=== PATIENT | female | born 1950 | race Caucasian/White ===

== ENCOUNTER → 2016-06-18 | Outpatient (CLI) | payer OTHER ==
--- NOTE | 2016-06-18 08:42 | BD ---
EXAMINATION TYPE: MG DEXA axial skeleton. DATE OF EXAM: 06/18/2016 7:31 AM COMPARISON: NONE CLINICAL HISTORY: Height: 5 ft 3/4 in Weight: 196 FRAX RISK QUESTIONS: Alcohol (3 or more units per day): NO Family History (Parent hip fracture): no Glucocorticoids (More than 3mos): no (Ex: prednisone, prednisolone, methylprednisolone, dexamethasone, and hydrocortisone). History of Fracture in Adulthood: yes Secondary Osteoporosis: 1. Type 1 Diabetes: NO 2. Hyperthyroidism: NO 3. Menopause before 45: NO 4. Malnutrition: NO 5. Chronic liver disease: NO Rheumatoid Arthritis: NO Current Tobacco Use: NO RISK FACTORS HISTORY OF: Other Fractures since Age 52: RIB When: 10 YEARS AGO Postmenopausal woman: AGE 55 MEDICATIONS: Additional Medications: FEMARA, JANUMET, TRULICITY, LOSARTIN, CHOLESTEROL MEDS, Additional History: BREAST CANCER 2010 CHEMO AND RADIATION EXAM MEASUREMENTS: Bone mineral densitometry was performed using the [employer] System. Bone mineral density as measured about the Lumbar spine is: ----- L1-L4(G/cm2): 1.037 T Score Values are as follows: ----- L2: -1.5 ----- L3: -0.6 ----- L4: -1.0 ----- L1-L4: -1.2 Bone mineral density has: Increased 0.2 % since study of: 2014 Bone mineral density about the R hip (g/cm2): 0.900 Bone mineral density about the L hip (g/cm2): 0.853 T Score values are as follows: -----R Neck: -1.0 -----L Neck: -1.3 -----R Intertrochanter: -1.0 -----L Intertrochanter: -1.2 Bone mineral density has: Decreased -3.0 % since study of: 2014 IMPRESSION: Osteopenia (T Score between -2.5 and -1 as noted by T score values There is slightly increased risk of fracture and the patient may be considered for treatment. Re-Screen 1-2 years. L2 AND LEFT FEMUR NOTE: T-SCORE=SD OF THE YOUNG ADULT MEAN.
== END | disposition home or self-care (01) ==
LOC: RADBDWWP 06:59
PROVIDERS: ATTEND Internal Medicine Hematology & Oncology
DX: M85.80 Other specified disorders of bone density and structure, unspecified site (principal); C50.412 Malignant neoplasm of upper-outer quadrant of left female breast; N95.1 Menopausal and female climacteric states; Z79.890 Hormone replacement therapy
CPT/HCPCS: 77080

== ENCOUNTER → 2017-03-27 | Outpatient (CLI) | payer OTHER ==
--- NOTE | 2017-03-27 09:00 | XR ---
EXAMINATION TYPE: XR chest 2V DATE OF EXAM: 03/27/2017 COMPARISON: 03/26/2016 HISTORY: Annual wellness. History of breast cancer and hypertension. TECHNIQUE: Frontal and lateral views of the chest are obtained. FINDINGS: There is no focal air space opacity, pleural effusion, or pneumothorax seen. The cardiac silhouette size is within normal limits. The osseous structures are intact. Minimal degenerative ch anges are seen of the thoracic spine. Old fracture deformity is seen of the anterior left sixth rib. IMPRESSION: No acute cardiopulmonary process.
--- NOTE | 2017-03-27 09:09 | MM ---
Reason for exam: additional evaluation requested from prior study. Last mammogram was performed 1 year ago. History: Patient is postmenopausal and has history of breast cancer at age 60. Mastectomy of the left breast, December 29, 2010. Malignant US left guided VAD of the left breast, December 19, 2010. Malignant US left guided VAD of the left breast, December 19, 2010. Benign US left CoreBiopsy of the left breast, May 15, 2005. Benign core biopsy of the right breast, April 2005. Benign stereotactic core biopsy of the right breast, May 22, 2002. Excisional biopsy of the left breast. Chemotherapy. Radiation therapy. Taking antineoplastic for 3 years 6 months beginning at age 60. Physical Findings: Nurse Summary: 0.25cm nodule in the right breast at 7 o'clock (nurse cw). MG 3D Diag Mammo W/Cad RT CC and MLO view(s) were taken of the right breast. Prior study comparison: March 26, 2016, right breast MG diagnostic mammo RT w CAD. March 25, 2015, right breast MG 3d diag mammo w/cad RT. The breast tissue is heterogeneously dense. This may lower the sensitivity of mammography. Finding: There are typically benign diffuse/scattered calcifications in the right breast. Post biopsy change palpable per nurse relates to dystrophic calcification of fat necrosis. These results were verbally communicated with the patient and result sheet given to the patient on 03/27/17. ASSESSMENT: Benign, BI-RAD 2 RECOMMENDATION: Follow-up diagnostic mammogram of the right breast in 1 year.
== END | disposition home or self-care (01) ==
LOC: RADMAMWWP 07:42
PROVIDERS: ATTEND Internal Medicine Hematology & Oncology
DX: C50.412 Malignant neoplasm of upper-outer quadrant of left female breast (principal); I97.2 Postmastectomy lymphedema syndrome; D63.0 Anemia in neoplastic disease; Z17.0 Estrogen receptor positive status [ER+]
CPT/HCPCS: 71020; G0206; G0279

== ENCOUNTER → 2018-04-09 | Outpatient (CLI) | payer MEDICARE ==
--- NOTE | 2018-04-09 08:10 | XR ---
EXAMINATION TYPE: XR chest 2V DATE OF EXAM: 04/09/2018 COMPARISON: 03/27/2017 HISTORY: Shortness of breath TECHNIQUE: Frontal and lateral views of the chest are obtained. FINDINGS: Scattered senescent parenchymal changes noted. Hyperinflation compatible with COPD. No evidence for infiltrate. No evidence for atelectasis. Heart size is stable. Mediastinal structures are stable and grossly unremarkable. No evidence for hilar prominence. Degenerative changes dorsal spine. IMPRESSION: 1. No evidence for acute pulmonary disease.
--- NOTE | 2018-04-10 09:50 | MM ---
Reason for exam: additional evaluation requested from prior study. Last mammogram was performed 1 year ago. History: Patient is postmenopausal and has history of breast cancer at age 60. Mastectomy of the left breast, December 29, 2010. Malignant US left guided VAD of the left breast, December 19, 2010. Malignant US left guided VAD of the left breast, December 19, 2010. Benign US left CoreBiopsy of the left breast, May 15, 2005. Benign core biopsy of the right breast, April 2005. Benign stereotactic core biopsy of the right breast, May 22, 2002. Excisional biopsy of the left breast. Chemotherapy. Radiation therapy. Took antineoplastic beginning at age 60. Physical Findings: Nurse did not find any significant physical abnormalities on exam. MG 3D Diag Mammo W/Cad RT CC and MLO view(s) were taken of the right breast. Prior study comparison: March 27, 2017, right breast MG 3d diag mammo w/cad RT. March 26, 2016, right breast MG diagnostic mammo RT w CAD. The breast tissue is heterogeneously dense. This may lower the sensitivity of mammography. Stable benign calcifications. There is no discrete abnormality including area of concern. No significant new findings when compared with previous films. These results were verbally communicated with the patient and result sheet given to the patient on 04/09/18. ASSESSMENT: Benign, BI-RAD 2 RECOMMENDATION: Follow-up diagnostic mammogram of the right breast in 1 year.
== END | disposition home or self-care (01) ==
LOC: RADMAMWWP 06:49
PROVIDERS: ATTEND Family Medicine
DX: Z08 Encounter for follow-up examination after completed treatment for malignant neoplasm (principal); I97.2 Postmastectomy lymphedema syndrome; D64.9 Anemia, unspecified; Z17.0 Estrogen receptor positive status [ER+]
CPT/HCPCS: 71046; 77065; G0279; 77061

== ENCOUNTER → 2018-06-19 | Outpatient (CLI) | payer MEDICARE ==
--- NOTE | 2018-06-19 11:25 | BD ---
EXAMINATION TYPE: Axial Bone Density DATE OF EXAM: 06/19/2018 COMPARISON: 06.18.2016 DEXA bone scan. CLINICAL HISTORY: 67 YR OLD FEMALE....ICD-10 CODE: M85.8 OSTEOPENIA, Z79.890 POST MENOPAUSAL Height: 61.4 Weight: 185 FRAX RISK QUESTIONS: History of Fracture in Adulthood: YES RISK FACTORS HISTORY OF: HX OF RIB FX ADULT....60 YRS OLD Postmenopausal woman: YES AT 56 YRS OLD FEMARA, LEFT BREAST CANCER MEDICATIONS: Additional Medications: BP MEDS, HX OF CHEMO AND RADIATION, FEMARA, DIABETIC MEDS, CALCIUM AND VIT D, STATINS FOR CHOLESTEROL, Additional History: HX OF LT BREAST CANCER, DIABETIC, HYPERTENSION EXAM MEASUREMENTS: Bone mineral densitometry was performed using the [employer] System. Bone mineral density as measured about the Lumbar spine is: ----- L1-L4(G/cm2): 0.994 T Score Values are as follows: ----- L1: -1.5 ----- L2: -1.7 ----- L3: -1.9 ----- L4: -1.3 ----- L1-L4: -1.5 Bone mineral density has: Decreased -6.6% since study of: 06.18.2016 Bone mineral density about the R hip (g/cm2): 0.857 Bone mineral density about the L hip (g/cm2): 0.883 T Score values are as follows: -----R Neck: -1.2 -----L Neck: -1.5 -----R Total: -1.2 -----L Total: -1.0 Bone mineral density has: Decreased -3.9% since study of: 06.18.2016 FRAX%s: THERE IS A 13.8% CHANCE FOR A MAJOR OSTEOPOROTIC FX AND A 1.4% FOR HIP.....PROBABILITY OF FX IN 10 YRS TIME IMPRESSION: Osteopenia (T Score between -2.5 and -1) persists overall low back and both hips. Bone density is dec reased or diminished from prior There remains slightly increased risk of fracture and the patient may be considered for treatment. Re-Screen 2-5 years. NOTE: T-SCORE=SD OF THE YOUNG ADULT MEAN.
== END | disposition home or self-care (01) ==
LOC: RADBDWWP 09:27
PROVIDERS: ATTEND Internal Medicine Hematology & Oncology
DX: M85.851 Other specified disorders of bone density and structure, right thigh (principal); M85.852 Other specified disorders of bone density and structure, left thigh; M85.88 Other specified disorders of bone density and structure, other site; C50.412 Malignant neoplasm of upper-outer quadrant of left female breast; Z79.890 Hormone replacement therapy
CPT/HCPCS: 77080

== ENCOUNTER 2018-07-25 16:08 | Emergency (ER) | payer MEDICARE ==
[2018-07-25 16:26] VITALS: PULSE 86; RESP 20; TEMP 98.2
--- NOTE | 2018-07-25 17:02 | ED ---
General Adult HPI - General Chief complaint: Extremity Injury, Upper Stated complaint: Hand Injury Time Seen by Provider: 07/25/18 16:54 Source: patient, RN notes reviewed Mode of arrival: ambulatory Limitations: no limitations - History of Present Illness Initial comments: Patient is a 67-year-old female who presents the emergency department with her daughter with complaint of right hand pain and swelling after she closed her hand in a door about an hour ago. Denies blood thinner use. Denies head injury or loss of consciousness. Denies wrist injury or any other injuries. Patient denies any recent fever, chills, shortness of breath, chest pain, back pain, abdominal pain, nausea or vomiting, numbness or tingling, headaches or visual changes, or any other complaints. - Related Data Allergies Allergy/AdvReac Type Severity Reaction Status Date / Time No Known Allergies Allergy Verified 07/25/18 16:26 Review of Systems ROS Statement: Those systems with pertinent positive or pertinent negative responses have been documented in the HPI. ROS Other: All systems not noted in ROS Statement are negative. Past Medical History Past Medical History: Cancer, Dementia, Hypertension History of Any Multi-Drug Resistant Organisms: None Reported Additional Past Surgical History / Comment(s): Left breast Past Psychological History: No Psychological Hx Reported Smoking Status: Never smoker Past Alcohol Use History: None Reported Past Drug Use History: None Reported General Exam Limitations: no limitations General appearance: alert, in no apparent distress Head exam: Present: atraumatic, normocephalic Eye exam: Present: normal appearance Respiratory exam: Present: normal lung sounds bilaterally. Absent: wheezes, rales, rhonchi Cardiovascular Exam: Present: regular rate, normal rhythm Extremities exam: Present: tenderness (Right hand.), normal capillary refill, other (Edema to right hand. No wrist pain. No snuffbox tenderness. Sensation intact. Able to maintain finger extention against resistance.) Neurological exam: Present: alert, oriented X3 Skin exam: Present: warm, dry Course Vital Signs 07/25/18 07/25/18 16:22 17:31 Temperature 98.2 F Pulse Rate 86 Respiratory 20 Rate Blood Pressure 172/91 151/72 O2 Sat by Pulse 99 Oximetry Medical Decision Making - Medical Decision Making Patient with ice pack on hand. X-ray of the right hand reveals osteoarthritis and soft tissue swelling. No definite fracture seen. Case discussed in detail with attending physician Dr. Brar. Disposition Clinical Impression: Contusion Disposition: HOME SELF-CARE Condition: Good Instructions (If sedation given, give patient instructions): Contusion in Adults (ED) Additional Instructions: Follow-up with your PCP in 1 to 2 days. Use ice as needed. Rest and elevate your hand. Return to the emergency department if your symptoms worsen or other concerns. Is patient prescribed a controlled substance at d/c from ED?: No Referrals: Magen Licea MD [Primary Care Provider] - 1-2 days Time of Disposition: 17:55
[2018-07-25 17:31] VITALS: BP 151/72
--- NOTE | 2018-07-25 17:31 | XR ---
Right hand 3 views. History pain. Comparison none. FINDINGS: There is mild spurring at the third MP joint. There is soft tissue swelling on the dorsum of the hand . I see no definite fracture. Metacarpals appear intact. There is no subluxation. There is spurring a t the DIP joints of the thumb and index finger. IMPRESSION: Osteoarthritis. Soft tissue swelling. No definite fracture seen.
== END 2018-07-25 18:06 | disposition home or self-care (01) ==
LOC: EC 16:08
DX: S60.221A Contusion of right hand, initial encounter (principal); M19.041 Primary osteoarthritis, right hand; W23.0XXA Caught, crushed, jammed, or pinched between moving objects, initial encounter; Y92.009 Unspecified place in unspecified non-institutional (private) residence as the place of occurrence of the external cause
CPT/HCPCS: 99283

== ENCOUNTER → 2019-05-18 | Outpatient (CLI) | payer MEDICARE ==
--- NOTE | 2019-05-18 13:59 | MM ---
Reason for exam: additional evaluation requested from prior study. Last mammogram was performed 1 year and 1 month ago. History: Patient is postmenopausal and has history of breast cancer at age 60. Mastectomy of the left breast, December 29, 2010. Malignant US left guided VAD of the left breast, December 19, 2010. Malignant US left guided VAD of the left breast, December 19, 2010. Benign US left CoreBiopsy of the left breast, May 15, 2005. Benign core biopsy of the right breast, April 2005. Benign stereotactic core biopsy of the right breast, May 22, 2002. Excisional biopsy of the left breast. Chemotherapy. Radiation therapy. Took antineoplastic beginning at age 60. Physical Findings: Nurse did not find any significant physical abnormalities on exam. MG 3D Diag Mammo W/Cad RT CC and MLO view(s) were taken of the right breast. Prior study comparison: April 09, 2018, right breast MG 3d diag mammo w/cad RT. March 27, 2017, right breast MG 3d diag mammo w/cad RT. The breast tissue is heterogeneously dense. This may lower the sensitivity of mammography. There is a stable right upper outer quadrant middle depth circumscribed oval mass. Benign appearing calcifications in the right breast. No suspicious abnormality. These results were verbally communicated with the patient and result sheet given to the patient on 05/18/19. ASSESSMENT: Benign, BI-RAD 2 RECOMMENDATION: Follow-up diagnostic mammogram of the right breast in 1 year.
--- NOTE | 2019-05-18 14:09 | XR ---
EXAMINATION TYPE: XR chest 2V DATE OF EXAM: 05/18/2019 COMPARISON: 04/09/2018 HISTORY: History of breast cancer TECHNIQUE: Frontal and lateral views of the chest are obtained. FINDINGS: Left mastectomy has been performed. There is no focal air space opacity, pleural effusion, or pneumothorax seen. The cardiac silhouette size is within normal limits. The osseous structures are intact. Mild multilevel degenerative changes of the thoracic spine. IMPRESSION: No acute cardiopulmonary process.
== END | disposition home or self-care (01) ==
LOC: RADMAMWWP 12:09
PROVIDERS: ATTEND Internal Medicine Hematology & Oncology
DX: C50.412 Malignant neoplasm of upper-outer quadrant of left female breast (principal); I97.2 Postmastectomy lymphedema syndrome; J01.90 Acute sinusitis, unspecified; Z85.3 Personal history of malignant neoplasm of breast; Z17.0 Estrogen receptor positive status [ER+]
CPT/HCPCS: 71046; 77065; G0279; 77061

== ENCOUNTER → 2019-05-20 | Outpatient (CLI) | payer MEDICARE ==
--- NOTE | 2019-05-20 14:36 | US ---
EXAMINATION TYPE: US thyroid st tissue head/neck DATE OF EXAM: 05/20/2019 COMPARISON: NONE CLINICAL HISTORY: R22.1 Neck mass. Left lateral neck palp/bulge x 2-3 years. Patient states it is be coming uncomfortable. TECHNIQUE/FINDINGS: Targeted grayscale and color ultrasound were performed of the area of palpable ab normality of the left neck. Area of concern scanned. No prominent masses or lesions seen. No free fluid. Contralateral images taken. Muscle tissue appears more prominent on left compared to right. IMPRESSION: No suspicious solid or cystic mass on the palpable abnormality in the left neck. The son ographer provides images in which musculature of the neck is slightly more prominent on the left than right although this could relate to obliquity and state of contraction.
== END | disposition home or self-care (01) ==
LOC: RADUSWWP 13:20
PROVIDERS: ATTEND Family Medicine
DX: R22.1 Localized swelling, mass and lump, neck (principal)
CPT/HCPCS: 76536

== ENCOUNTER → 2020-07-13 | Outpatient (CLI) | payer MEDICARE ==
--- NOTE | 2020-07-14 07:53 | BD ---
EXAMINATION TYPE: Axial Bone Density DATE OF EXAM: 07/13/2020 COMPARISON: NONE CLINICAL HISTORY: Height: 5 FT 1 IN Weight: 185 FRAX RISK QUESTIONS: Alcohol (3 or more units per day): NO Family History (Parent hip fracture): NO Glucocorticoids (More than 3mos): NO (Ex: prednisone, prednisolone, methylprednisolone, dexamethasone, and hydrocortisone). History of Fracture in Adulthood: YES Secondary Osteoporosis: 1. Type 1 Diabetes: NO 2. Hyperthyroidism: NO 3. Menopause before 45: NO 4. Malnutrition: NO 5. Chronic liver disease: NO Rheumatoid Arthritis: NO Current Tobacco Use: NO RISK FACTORS HISTORY OF: Family History of Osteoporosis: NO Active: YES Diet low in dairy products/other sources of calcium: NO Postmenopausal woman: AGE 55 Take estrogen and/or progesterone medications: NONE Lost more than 2 inches in height since high school: NO MEDICATIONS: Additional Medications: FEMARA, LOSARTIN, ATORVASTATIN, Additional History: BREAST CANCER CHEMO AND RADIATION EXAM MEASUREMENTS: Bone mineral densitometry was performed using the [employer] System. Bone mineral density as measured about the Lumbar spine is: ----- L1-L4(G/cm2): 0.989 T Score Values are as follows: ----- L2: -2.7 ----- L3: -1.3 ----- L4: -1.3 ----- L1-L4: -1.6 Bone mineral density has: DECREASED -1.2 % since study of: 2018 Bone mineral density about the R hip (g/cm2): 0.830 Bone mineral density about the L hip (g/cm2): 0.768 T Score values are as follows: -----R Neck: -1.5 -----L Neck: -1.9 -----R Total: -1.3 -----L Total: -1.4 Bone mineral density has: DECREASED -3.9 % since study of: 2018 IMPRESSION: Osteopenia (T Score between -2.5 and -1). There is slightly increased risk of fracture and the patient may be considered for treatment. Re-Screen 2-5 years. NOTE: T-SCORE=SD OF THE YOUNG ADULT MEAN.
--- NOTE | 2020-07-15 10:53 | MM ---
Reason for exam: additional evaluation requested from prior study. Last mammogram was performed 1 year and 2 months ago. History: Patient is postmenopausal and has history of breast cancer at age 60. Mastectomy of the left breast, December 29, 2010. Malignant US left guided VAD of the left breast, December 19, 2010. Malignant US left guided VAD of the left breast, December 19, 2010. Benign US left CoreBiopsy of the left breast, May 15, 2005. Benign core biopsy of the right breast, April 2005. Benign stereotactic core biopsy of the right breast, May 22, 2002. Excisional biopsy of the left breast. Chemotherapy. Radiation therapy. Taking antineoplastic beginning at age 60. Physical Findings: Nurse Summary: 1cm nodule in the right breast at 10 o'clock (nurse db). MG 3D Diag Mammo W/Cad RT CC, MLO, and XCCL view(s) were taken of the right breast. Prior study comparison: May 18, 2019, right breast MG 3d diag mammo w/cad RT. April 09, 2018, right breast MG 3d diag mammo w/cad RT. The breast tissue is heterogeneously dense. This may lower the sensitivity of mammography. Finding #1: There is a 15 mm equal density (isodense), circumscribed lobulated mass located 5 cm from the nipple in the upper outer quadrant, middle position of the right breast consistent with palpable abnormality. Finding #2: There are typically benign regional coarse calcifications in the right breast. These results were verbally communicated with the patient and result sheet given to the patient on 07/13/20. ASSESSMENT: Incomplete: need additional imaging evaluation, BI-RAD 0 RECOMMENDATION: Ultrasound of the right breast.
--- NOTE | 2020-07-15 10:55 | USB ---
Reason for exam: additional evaluation requested from abnormal screening. History: Patient is postmenopausal and has history of breast cancer at age 60. Mastectomy of the left breast, December 29, 2010. Malignant US left guided VAD of the left breast, December 19, 2010. Malignant US left guided VAD of the left breast, December 19, 2010. Benign US left CoreBiopsy of the left breast, May 15, 2005. Benign core biopsy of the right breast, April 2005. Benign stereotactic core biopsy of the right breast, May 22, 2002. Excisional biopsy of the left breast. Chemotherapy. Radiation therapy. Taking antineoplastic beginning at age 60. US Breast Limited RT Right limited breast ultrasound including focal area of concern, retroareolar and axilla demonstrates a 1.6 x 1.1 x 1.9cm irregular, solid, hypoechoic, taller than wide lesion at 10 o'clock and a 2.4cm lymph node at the axilla. These results were verbally communicated with the patient and result sheet given to the patient on 07/13/20. ASSESSMENT: Highly suggestive of malignancy, BI-RAD 5 RECOMMENDATION: Ultrasound core biopsy of the right breast. Called office with mammographic findings and has scheduled an appointment for the patient for 08/05/20 at 1:[address] Dimas. Biopsy scheduled for 07/21/20 at 10:30. PRELIMINARY REPORT CALLED AND FAXED TO DR. DIMAS ON 07/15/20.
== END | disposition home or self-care (01) ==
LOC: RADMAMWWP 12:22
PROVIDERS: ATTEND Internal Medicine Hematology & Oncology
DX: R92.8 Other abnormal and inconclusive findings on diagnostic imaging of breast (principal); Z85.3 Personal history of malignant neoplasm of breast; M85.80 Other specified disorders of bone density and structure, unspecified site
CPT/HCPCS: 77080; 77065; 76642; G0279; 77061

== ENCOUNTER → 2020-07-21 | Day surgery (SDC) | payer MEDICARE ==
[2020-07-21 09:52] VITALS: RESP 16; TEMP 98.4
[2020-07-21 11:29] VITALS: BP 147/83; PULSE 76
--- NOTE | 2020-07-21 21:16 | USB ---
EXAMINATION TYPE: US biopsy breast VAD RT DATE OF EXAM: 07/21/2020 CLINICAL HISTORY: R92.8 ABN MAMMO. TECHNIQUE: Ultrasound guided vaccuum assisted core biopsy of right breast. COMPARISON: 07/13/2020 FINDINGS: The ultrasound guided core biopsy procedure was explained to the patient. The risks, benef its, alternatives were discussed. An informed consent was then obtained. Timeout was performed. The patient was placed in supine positioning for imaging and for the procedure. The overlying skin w as prepped with betadine and sterilely draped in usual sterile fashion. Lidocaine 1% was used as ane sthetic into the skin and deeper breast tissue up to area of concern in the breast. A small skin mary k was made with surgical scalpel. Under ultrasound guidance, a 12-gauge vacuum assisted biopsy device was used to obtain 6 core samples . A biopsy clip was left in lesion. A wing clip was placed. There was some postprocedure bleeding. Minimal blood loss less than 10 mL. Good hemostasis was obtain ed with direct pressure. Discharge instructions were discussed with the patient. The patient will f ollow up with the referring physician for results. Postprocedure mammogram: The patient was transferred to mammography for physician ordered post proced ure mammogram for clip placement verification. The clip is in the expected region of the biopsy. The re is a nodular density near the clip. Clip placement however was visualized into the lesion at the b iopsy site at the time of deployment. The patient tolerated the procedure well without any immediate complication. The patient was dischar ged to home in stable condition. IMPRESSION: 1. Successful ultrasound guided biopsy right breast.
== END ==
LOC: RADUSWWP 09:08
PROVIDERS: ATTEND Internal Medicine Hematology & Oncology
DX: C50.911 Malignant neoplasm of unspecified site of right female breast (principal); Z17.0 Estrogen receptor positive status [ER+]
CPT/HCPCS: 88305; 88342; 88341; 77065; 19083; A4648

== ENCOUNTER 2020-08-09 12:13 | Day surgery (SDC) | payer MEDICARE ==
[2020-08-09 14:10] VITALS: RESP 16; TEMP 98.3
[2020-08-09 14:52] VITALS: BP 142/74; PULSE 79
--- NOTE | 2020-08-09 17:05 | US ---
EXAMINATION TYPE: US biopsy lymph node DATE OF EXAM: 08/09/2020 HISTORY: Right breast carcinoma FINDINGS: Maximal barrier technique was utilized. Hand hygiene achieved with soap and water and alco hol-based hand rub. The skin overlying a suitable path to the patient's right axillary node was local ized with ultrasound and the overlying skin prepped and draped. Ultrasound was utilized with sterile technique. Lidocaine was used for local anesthesia. A skin kumar was made with a scalpel. An 18-ga uge needle was advanced under direct ultrasound guidance and core specimen obtained of the mass. Spe cimen submitted in formalin to Pathology. Following the procedure, hemostasis achieved and the patie nt is discharged in stable condition without complication. IMPRESSION:STATUS POST ULTRASOUND GUIDED CORE BIOPSY RIGHT AXILLARY NODE, PATHOLOGY IS PENDING. THIS PROCEDURE IS PERFORMED BY THE UNDERSIGNED.
== END 2020-08-09 14:54 | disposition home or self-care (01) ==
LOC: RADPROMAIN 12:13
PROVIDERS: ATTEND Internal Medicine Hematology & Oncology
DX: D76.3 Other histiocytosis syndromes (principal); Z85.3 Personal history of malignant neoplasm of breast; R92.8 Other abnormal and inconclusive findings on diagnostic imaging of breast; Z79.84 Long term (current) use of oral hypoglycemic drugs; Z79.899 Other long term (current) drug therapy; E11.9 Type 2 diabetes mellitus without complications; I10 Essential (primary) hypertension; Z90.12 Acquired absence of left breast and nipple
CPT/HCPCS: 38505; 76942; 88305

== ENCOUNTER → 2020-08-19 | Outpatient (CLI) | payer MEDICARE ==
[2020-08-19 11:58] VITALS: BP 143/82; PULSE 75; RESP 18; TEMP 98.3
--- NOTE | 2020-08-19 13:11 | P.GSHP ---
History of Present Illness H&P Date: 08/19/20 Chief Complaint: Bilateral breast cancer, left breast stage IIIC, right bresat satge IB Kely is a 69-year-old white female seen in consultation for Dr. Dimas regarding a recently diagnosed right breast invasive ductal carcinoma. Of significance is the fact that she underwent a left breast mastectomy approximately 10 years ago for a stage III T2N3M0 invasive ductal cancer. At that time she underwent chemotherapy and radiation therapy. She has been on letrazole since that time. She has done well until recently when she noted in March 2020 nodularity in her right lateral breast. Secondary to COVID radiographic evaluation was delayed until July 2020. A right breast mammogram at that time revealed a 1.5 cm equal density in the upper-outer quadrant of the right breast. An ultrasound was then performed which confirmed a 1.6 x 1.9 cm solid lesion at the 10:00 location. A 2.4 cm lymph node in the axilla was noted. Ultrasound core biopsy of these was performed on . The lesion in the breast was consistent with an invasive ductal carcinoma grade 3. The lymph node was biopsied on 3220. This revealed benign lymphoid tissue with focal histiocytes. She has not noted any changes since she first noted a lump in the right breast. She has no lesions of concern in the skin of the left chest wall. She did develop lymphedema following the left mastectomy and wears a compression sleeve. She did have an open biopsy of the right breast in the remote past which was benign. Family History: none Hormonal History: menarche: 13 , breast fed: no, age at first : 28 menopause: 55 BCP: 1 year hormones: none Surgical history: Left breast mastectomy and axillary node dissection Prior right breast biopsy 2 Pilonidal cyst surgery Medical history: HTN diabetes high cholesterol Social History: Nicotine: Negative Alcohol: Gated Drugs: Negative - Constitutional Constitutional: Denies chills, Denies fever - EENT Eyes: denies blurred vision, denies pain Ears: bilateral: tinnitus, deny: decreased hearing Ears, nose, mouth and throat: Denies headache, Denies sore throat - Breasts Breasts: bilateral: as per HPI - Cardiovascular Cardiovascular: Denies chest pain, Denies shortness of breath - Respiratory Respiratory: Denies cough, Denies 7 - Gastrointestinal Gastrointestinal: Denies abdominal pain, Denies diarrhea, Denies nausea, Denies vomiting - Genitourinary (Female) Genitourinary: Denies dysuria, Denies hematuria - Menstruation Menstruation: Reports postmenopausal - Musculoskeletal Musculoskeletal: Denies myalgias - Integumentary Integumentary: Denies pruritus, Denies rash - Neurological Neurological: Denies numbness, Denies weakness - Psychiatric Psychiatric: Denies anxiety, Denies depression - Endocrine Endocrine: Denies fatigue, Denies weight change - Hematologic/Lymphatic Comment: none - Allergic/Immunologic Allergic/Immunologic: Reports as per HPI Past Medical History Past Medical History: Cancer, Diabetes Mellitus, Hyperlipidemia, Hypertension Additional Past Medical History / Comment(s): left breast cancer 2009, mastectomy History of Any Multi-Drug Resistant Organisms: None Reported Past Surgical History: Breast Surgery Additional Past Surgical History / Comment(s): Left breast mastectomy, rt breast biopsy jul 21 2020 Past Anesthesia/Blood Transfusion Reactions: No Reported Reaction Past Psychological History: No Psychological Hx Reported Smoking Status: Never smoker Past Alcohol Use History: None Reported Past Drug Use History: None Reported - Past Family History Mother Family Medical History: Diabetes Mellitus Additional Family Medical History / Comment(s): dememtia Medications and Allergies Home Medications Medication Instructions Recorded Confirmed Type Atorvastatin [Lipitor] 10 mg PO HS 07/15/20 08/19/20 History Labetalol [Trandate] 200 mg PO QAM 07/15/20 08/19/20 History Letrozole 2.5 mg PO QAM 07/15/20 08/19/20 History Losartan [Cozaar] 50 mg PO DAILY 07/15/20 08/19/20 History metFORMIN HCL [Glucophage] 1,000 mg PO BID 07/15/20 08/19/20 History C,E,Zinc,Copper 11/Qzvoc5g/Lut 1 each PO QAM 08/19/20 08/19/20 History [Ocuvite Adult 50 Plus Softgel] Empagliflozin/Linagliptin 1 each PO QAM 08/19/20 08/19/20 History [Glyxambi 25 mg-5 mg Tablet] Krill/Om-3/Dha/Epa/Phospho/Ast 750 mg PO DAILY 08/19/20 08/19/20 History [Megared [place]-3 Krill 350 mg] Allergies Allergy/AdvReac Type Severity Reaction Status Date / Time No Known Allergies Allergy Verified 08/19/20 11:52 Surgical - Exam Vital Signs Temp Pulse Resp BP Pulse Ox 98.3 F 75 18 143/82 99 08/19/20 11:55 08/19/20 11:55 08/19/20 11:55 08/19/20 11:55 08/19/20 11:55 BMI 34 - General no distress - Eyes normal ocular movement - ENT normal pinna, normal nares - Neck no masses, trachea midline - Respiratory normal expansion, normal respiratory effort, clear to auscultation - Cardiovascular Rhythm: regular Heart Sounds: normal: S1, S2 - Abdomen Abdomen: soft - Integumentary normal turgor - Neurologic no disoriented, no combative - Musculoskeletal normal gait, normal posture - Psychiatric oriented to time, oriented to person, oriented to place, speech is normal, memory intact breast exam: Bra: 38B inspection: Right breast grade 3 ptosis, left chest wall status post mastectomy well healed incision Palpation: Right breast: Multi-positional exam approximately 2 cm lesion in the 10:30 to 11 o'clock position, fibrocystic changes no other dominant masses or nodules of concern Right axilla: No adenopathy of concern Left breast: Status post mastectomy incision chest wall clean and dry well- healed no evidence of any recurrent cancer Left axilla: No adenopathy of concern Results Mammogram and ultrasound results reviewed pathology results reviewed Medical oncology note reviewed Assessment and Plan Assessment: Impression: 1. Recently diagnosed right breast stage IB invasive ductal carcinoma 2. Patient has had blood drawn for genetic testing 3. Discussed lumpectomy and breast preservation vs. mastectomy, patient good candidate for lumpectomy 4. Recommendation for neoadjuvant chemotherapy with TC 4 5. Awaiting mediport placement Plan: 1. appointment with Dr. Mclean next week 2. await genetic testing results 3. follow up in two months 4. avery-adjuvant chemotherapy 5. Port placement CC: Dr. Dimas, Dr. Licea Encounter 45 minutes, time spent in examination, reviewing medical records, and counselling.
== END | disposition home or self-care (01) ==
LOC: WWCWWP 11:32
PROVIDERS: ATTEND Surgery
DX: C50.911 Malignant neoplasm of unspecified site of right female breast (principal); E11.9 Type 2 diabetes mellitus without complications; E78.5 Hyperlipidemia, unspecified; I10 Essential (primary) hypertension; E78.00 Pure hypercholesterolemia, unspecified; Z45.2 Encounter for adjustment and management of vascular access device; Z90.12 Acquired absence of left breast and nipple

== ENCOUNTER 2020-08-26 05:59 | Day surgery (SDC) | payer MEDICARE ==
[2020-08-24 11:42] VITALS: BMI 34.5
[~2020-08-26 05:59] MED LIST: ACETAMINOPHEN TAB 500 MG TAB PO PRN; DEXAMETHASONE SOD PHOSPHATE 4 MG/ML 1 ML VIAL IV ONE; LACTATED RINGERS 1,000 ML IV SCH; MIDAZOLAM 2 MG/2 ML VIAL IV PRN; ONDANSETRON 4 MG/2 ML VIAL IVP ONE; Pre Op ABX Message 1 EACH MISC MISCELLANE ONE
[2020-08-26 06:57] VITALS: RESP 16; TEMP 98.1
--- NOTE | 2020-08-26 06:57 | P.GSHP ---
History of Present Illness H&P Date: 08/26/20 CHIEF COMPLAINT: Breast cancer, right HISTORY OF PRESENT ILLNESS: The patient is a 69-year-old female diagnosed with new right breast cancer less than 3 months ago. He has history of previous left breast cancer treated with mastectomy and chemoradiation over 10 years ago. No reports of current pain. She she presents today for placement of Mediport for chemotherapy. PAST MEDICAL HISTORY: See list and reviewed PAST SURGICAL HISTORY: See list and reviewed CURRENT MEDICATIONS: See list and reviewed ALLERGIES: See list and reviewed SOCIAL HISTORY: No active tobacco or alcohol use. FAMILY HISTORY: See list and reviewed REVIEW OF ORGAN SYSTEMS: CONSTITUTIONAL: No fevers or chills. EYES: Denies any trouble with vision. No glasses. HEENT: No difficulties with hearing. No nosebleeds. No difficulty swallowing. RESPIRATORY: Denies pneumonia. Denies any troubles with breathing or dyspnea on exertion. CARDIOVASCULAR: Denies any chest pain, palpitations, or recent heart attacks. Has hyperlipidemia. He has hypertensive heart disease. GASTROINTESTINAL: Denies fatty food intolerance. Denies change in bowel habits and gas bloat. GENITOURINARY: Denies any blood in urine or increased urinary frequency. NEUROLOGICAL: Denies any numbness or tingling along the distal extremities. No seizure disorders or headaches. MUSCULOSKELETAL: Denies any back pain, stiffness or joint arthritis. SKIN: No current skin cancer. No rash. PSYCHIATRIC: Denies current depression or suicidal thoughts. ENDOCRINE: Denies current thyroid disorders. Has diabetes type 2, [id number]. HEME/LYMPHATIC: Denies any lumps and bumps around the neck. No recent deep venous thrombosis. ALLERGY/IMMUNOLOGY: No immunoglobulin therapy. No immune deficiencies. BREAST: History of left breast cancer with mastectomy and chemoradiation. PHYSICAL EXAMINATION: Vital signs: Stable GENERAL: Well developed and in no acute distress. Pleasant. HEENT: No sclera icterus. Extraocular movements grossly intact. Moist buccal mucosa. Head is atraumatic, normocephalic. Hears conversational speech. No nasal drainage. NECK: Supple without lymphadenopathy. No JV distention. CHEST: Non-labored respirations and equal bilateral excursions. CARDIOVASCULAR: Regular rate and rhythm. Palpable 2+ radial pulses. ABDOMEN: Nontender. MUSCULOSKELETAL: No clubbing, cyanosis or edema. NEUROLOGIC: No focal or lateralizing signs. PSYCH: Appropriate affect. Alert and oriented to person, place and time. ASSESSMENT: 1. Breast cancer 2. Need for chemotherapeutic access. PLAN: 1. Agree with Port-A-Cath placement. Past Medical History Past Medical History: Cancer, Diabetes Mellitus, Hyperlipidemia, Hypertension Additional Past Medical History / Comment(s): left breast cancer 2009 (mastectomy, chemo & radiation tx)., Right breast cancer -new diagnosis. History of Any Multi-Drug Resistant Organisms: None Reported Past Surgical History: Breast Surgery Additional Past Surgical History / Comment(s): Left breast mastectomy, rt breast biopsy & lymph node bx jul 21 2020. Past Anesthesia/Blood Transfusion Reactions: No Reported Reaction, Motion Sickness Past Psychological History: No Psychological Hx Reported Smoking Status: Never smoker Past Alcohol Use History: None Reported Past Drug Use History: None Reported - Past Family History Mother Family Medical History: Diabetes Mellitus Additional Family Medical History / Comment(s): dememtia Medications and Allergies Home Medications Medication Instructions Recorded Confirmed Type Atorvastatin [Lipitor] 10 mg PO HS 07/15/20 08/26/20 History Labetalol [Trandate] 200 mg PO AC-BRKFST 07/15/20 08/26/20 History Letrozole 2.5 mg PO QAM 07/15/20 08/26/20 History Losartan [Cozaar] 50 mg PO AC-BRKFST 07/15/20 08/26/20 History metFORMIN HCL [Glucophage] 1,000 mg PO BID 07/15/20 08/26/20 History C,E,Zinc,Copper 11/Behng8r/Lut 1 each PO QAM 08/19/20 08/26/20 History [Ocuvite Adult 50 Plus Softgel] Empagliflozin/Linagliptin 1 each PO W/BRKFST 08/19/20 08/26/20 History [Glyxambi 25 mg-5 mg Tablet] Krill/Om-3/Dha/Epa/Phospho/Ast 1 dose PO DAILY 08/19/20 08/26/20 History [Megared [place]-3 Krill 350 mg] Allergies Allergy/AdvReac Type Severity Reaction Status Date / Time No Known Allergies Allergy Verified 08/24/20 11:15
[2020-08-26 06:59] LABS: Glucose,Whole Blood 171 mg/dL (75-99)
[2020-08-26] MEDS ORDERED: HYDROmorphone 0.5 MG/0.5 ML SYRINGE IVP PRN (07:00)
[2020-08-26] MEDS ORDERED: LIDOCAINE 1% (10MG/ML) FOR IV START INTRADERMA ONE (07:00)
--- NOTE | 2020-08-26 07:04 | P.HPADDEND ---
H&P Addendum H&P Addendum Date: 08/26/20 Patient at elevated risk for complications due to pre-existing chemoradiation and venous access devices.
[2020-08-26] MEDS ORDERED: fentaNYL (PF) 50 MCG/ML 2 ML AMP ONE (07:28)
[2020-08-26] MEDS ORDERED: PHENYLEPHRINE-0.9% NACL SYG 1,000 MCG/10 ML SYRINGE ONE (07:28)
[2020-08-26] MEDS ORDERED: MIDAZOLAM 2 MG/2 ML VIAL ONE (07:28)
[2020-08-26] MEDS ORDERED: PROPOFOL 10 MG/ML 20 ML VIAL IV ONE (07:28)
[2020-08-26] MEDS ORDERED: LIDOCAINE 1% INJ 10MG/ML (20 ML MDV) ONE (07:28)
[2020-08-26] MEDS ORDERED: KETAMINE 10 MG/ML 20 ML VIAL ONE (07:28)
[2020-08-26] MEDS ORDERED: BUPIVACAIN-EPI 0.5%-1:200,000 30 ML VIAL SQ ONE (07:33)
[2020-08-26] MEDS ORDERED: SODIUM CHLORIDE 0.9% 500 ML 500 ML with HEPARIN SODIUM,PORCINE 5,000 UNIT IV ONE ×2 (07:49)
--- NOTE | 2020-08-26 08:31 | P.PCN ---
Date of Procedure: 08/26/20 Description of Procedure: SURGEON: TERRI KANG MD AIRPORT OPERATIONS DUTY MANAGER: None. PREOPERATIVE DIAGNOSES: 1. Breast cancer, right 2. Need for chemotherapeutic access. 3. Obesity due to excess calories, BMI 34.3 4. Diabetes type 2, [id number] 5. Hypertensive heart disease 6. History of left breast cancer POSTOPERATIVE DIAGNOSES: 1. Breast cancer, right 2. Need for chemotherapeutic access. 3. Obesity due to excess calories, BMI 34.3 4. Diabetes type 2, [id number] 5. Hypertensive heart disease 6. History of left breast cancer PROCEDURES PERFORMED: 1. Ultrasound guided central venous access of the right internal jugular venous vein. 2. Fluoroscopic guidance for central venous access right internal jugular vein less than 1 seconds. 3. Placement of right internal jugular power port 6 [place] by [employer], [employer] Plus Port ANESTHESIA: IV sedation with local. ESTIMATED BLOOD LOSS: 1 mL. SPECIMENS REMOVED: None. COMPLICATIONS: None. INDICATIONS: The patient is a 69-year-old female recently diagnosed with new right breast cancer. She presents for chemotherapeutic access. Benefits and risks of surgical intervention were described including bleeding, infection, mechanical problems with his port. Informed consent was obtained. DESCRIPTION OR PROCEDURE: Patient was brought into the operating room, laid in supine position. After adequate IV sedation, the chest and right neck were prepped and draped in a standard sterile fashion including the shoulder with ChloraPrep. Timeout protocol was confirmed with the surgical team regarding the patient's name, procedure to be performed including preoperative medications for which she received IV antibiotics. Bilateral SCDs were placed. An ultrasound was used to capture views of the right internal jugular vein including right carotid artery, which was patent and without thrombus along its course. The right IJ was then localized using anesthetic for the skin. A 16 [place] needle was used to access the IJ. A guidewire was advanced into the IJ with dark nonpulsatile venous blood. Two fingerbreadths distal to the clavicle, on the lateral third, a transverse 1.5 to 2 cm incision was deepened into the skin after localizing the skin. A pocket was created for the port. The port on the back table was flushed with heparinized saline and then attached to the catheter tubing. An adapter was fastened to the actual port site over the tubing. The port easily had fit snug into the pocket. A subcutaneous tunneler was placed along the open end of the tubing and brought out through the separate stab incision. Fluoroscopic guidance confirmed no kinking along the tubing and the port site. Next, the J-wire was exchanged for a catheter sheath for which the tubing was cut to 21 cm and then advanced through the catheter sheath. The Peel-away sheath was then removed and the tubing was secured at the junction of the superior vena cava as well as the right atrium. The tubing was found to be crossed however functional. This was all done under fluoroscopic guidance under 1 seconds. Easy pullback as well as return and aspiration was obtained of the port site. The skin incision was closed using layers using 3-0 Vicryl for the subcu followed by 4-0 Monocryl in a running subcuticular fashion. At the stick site this was also reapproximated using 4-0 Monocryl. The incisions were covered with Optifoam, The skin was cleansed and Exofin liquid glue was applied. Optifoam dressing was placed over the port site. A total of 20 mL of local anesthetic was placed. At the end of the procedure, needle, sponge, and instrument count was verified correct by surgical instrument repair specialist. The patient was awoken and pain free and taken to the second stage postanesthesia care unit. The patient tolerated the procedure well. FINDINGS: 1. No thrombus encountered along the right carotid artery or internal jugular vein. 2. Access of the right internal jugular vein under ultrasound guidance. 3. Fluoroscopy of less than 1 seconds. ADDENDUM: Heparin lock of 5 mL was placed. Plan - Discharge Summary Discharge Rx Participant: No New Discharge Prescriptions: New Acetaminophen Tab [Tylenol Tab] 1,000 mg PO Q6HR PRN #30 tablet PRN Reason: Pain Continue metFORMIN HCL [Glucophage] 1,000 mg PO BID Losartan [Cozaar] 50 mg PO AC-BRKFST Atorvastatin [Lipitor] 10 mg PO HS Letrozole 2.5 mg PO QAM Labetalol [Trandate] 200 mg PO AC-BRKFST Empagliflozin/Linagliptin [Glyxambi 25 mg-5 mg Tablet] 1 each PO W/BRKFST Krill/Om-3/Dha/Epa/Phospho/Ast [Megared [place]-3 Krill 350 mg] 1 dose PO DAILY C,E,Zinc,Copper 11/Lawcd6n/Lut [Ocuvite Adult 50 Plus Softgel] 1 each PO QAM Discharge Medication List Atorvastatin [Lipitor] 10 mg PO HS 07/15/20 [History] Labetalol [Trandate] 200 mg PO AC-BRKFST 07/15/20 [History] Letrozole 2.5 mg PO QAM 07/15/20 [History] Losartan [Cozaar] 50 mg PO AC-BRKFST 07/15/20 [History] metFORMIN HCL [Glucophage] 1,000 mg PO BID 07/15/20 [History] C,E,Zinc,Copper 11/Knuhw4q/Lut [Ocuvite Adult 50 Plus Softgel] 1 each PO QAM 08/19/20 [History] Empagliflozin/Linagliptin [Glyxambi 25 mg-5 mg Tablet] 1 each PO W/BRKFST 08/19/20 [History] Krill/Om-3/Dha/Epa/Phospho/Ast [Megared [place]-3 Krill 350 mg] 1 dose PO DAILY 08/19/20 [History] Acetaminophen Tab [Tylenol Tab] 1,000 mg PO Q6HR PRN #30 tablet 08/26/20 [Rx] Follow up Appointment(s)/Referral(s): Terri Kang MD [STAFF PHYSICIAN] - As Needed (Follow up with your oncologist for chemotherapy) Patient Instructions/Handouts: Implanted Venous Access Port (GEN), How to Care for Your Implanted Venous Access Port (GEN) Activity/Diet/Wound Care/Special Instructions: Remove dressing on August 30.. May shower. No bathtub soaks for 2 weeks, September 09. No wide motions of the right arm to prevent dislodge of your port for 3 weeks. EXPECT BRUISING AND SLEEP WITH 2 TO 3 PILLOWS. BRUISING RESOLVES IN 2 TO 3 WEEKS. Take Tylenol, Aleve or ibuprofen for pain as needed Discharge Disposition: HOME SELF-CARE
[2020-08-26 08:53] LABS: Glucose,Whole Blood 191 mg/dL (75-99)
[2020-08-26 09:14] VITALS: BP 144/81; PULSE 82
--- NOTE | 2020-08-26 09:25 | XR ---
EXAMINATION TYPE: XR chest 1V confirm line [facility] DATE OF EXAM: 08/26/2020 COMPARISON: Chest x-ray May 18, 2019 HISTORY: Port placement. TECHNIQUE: Single AP portable frontal upright view of the chest is obtained. FINDINGS: New right Internal jugular Mediport catheter terminates in SVC. There is mild chronic paren chymal changes without suspicious focal air space opacity, pleural effusion, or pneumothorax seen. T he cardiac silhouette size is stable and within normal limits. The osseous structures are intact. IMPRESSION: New right internal jugular central venous catheter terminates in SVC. No pneumothorax no bronson.
--- NOTE | 2020-08-26 09:32 | FL ---
EXAMINATION TYPE: FL guided central line placemt DATE OF EXAM: 08/26/2020 CLINICAL HISTORY: Mediport catheter insertion. TECHNIQUE: Fluoroscopy. COMPARISON: None. FINDINGS: Fluoroscopic guidance was provided during Mediport catheter insertion procedure performed by Dr. Kang. A total of estimated 5 seconds of fluoroscopic time was utilized during the proced ure and 0 spot images are saved to PACS. IMPRESSION: As Above.
== END 2020-08-26 09:38 | disposition home or self-care (01) ==
LOC: OR 05:59
PROVIDERS: ATTEND Surgery Plastic and Reconstructive Surgery
DX: C50.911 Malignant neoplasm of unspecified site of right female breast (principal); I11.9 Hypertensive heart disease without heart failure; E78.5 Hyperlipidemia, unspecified; E11.9 Type 2 diabetes mellitus without complications; E66.09 Other obesity due to excess calories; Z92.3 Personal history of irradiation; Z92.21 Personal history of antineoplastic chemotherapy; Z90.12 Acquired absence of left breast and nipple; Z68.34 Body mass index [BMI] 34.0-34.9, adult; Z79.899 Other long term (current) drug therapy; Z79.84 Long term (current) use of oral hypoglycemic drugs; Z98.891 History of uterine scar from previous surgery; Z98.890 Other specified postprocedural states; Z83.3 Family history of diabetes mellitus; Z81.8 Family history of other mental and behavioral disorders
CPT/HCPCS: 77001; 36561; C1788; J2250; J1644; J1100; J0690; J2405; J2001; J3010; J1642; J2370; J2704

== ENCOUNTER → 2020-10-21 | Outpatient (CLI) | payer MEDICARE ==
[2020-10-21 09:31] VITALS: BP 147/84; PULSE 98; RESP 18; TEMP 98.4
--- NOTE | 2020-10-21 10:12 | P.PN ---
Subjective Progress Note Date: 10/21/20 Principal diagnosis: [id number] right breast cancer Kely is a 69-year-old white female seen in consultation for Dr. Dimas regarding a recently diagnosed right breast invasive ductal carcinoma. Of significance is the fact that she underwent a left breast mastectomy a pproximately 10 years ago for a stage III T2N3M0 invasive ductal cancer. At that time she underwent chemotherapy and radiation therapy. She has been on letrazole since that time. She has done well until recently when she noted in March 2020 nodularity in her right lateral breast. Secondary to COVID radiographic evaluation was delayed until July 2020. A right breast mammogram at that time revealed a 1.5 cm equal density in the upper-outer quadrant of the right breast. An ultrasound was then performed which confirmed a 1.6 x 1.9 cm solid lesion at the 10:00 location. A 2.4 cm lymph node in the axilla was noted. Ultrasound core biopsy of these was performed on . The lesion in the breast was consistent with an invasive ductal carcinoma grade 3. The lymph node was biopsied on 3220. This revealed benign lymphoid tissue with focal histiocytes. She has not noted any changes since she first noted a lump in the right breast. She has no lesions of concern in the skin of the left chest wall. She did develop lymphedema following the left mastectomy and wears a compression sleeve. She did have an open biopsy of the right breast in the remote past which was bandar ign. She has had 3 courses of chemotherapy. She will finish her chemotherapy in two weeks. She is receiving cyclophosphamide and docetaxel. Last Saturday she had an iron infusion. She sates the lump has decreased in size. Family History: none Hormonal History: menarche: 13 , breast fed: no, age at first : 28 menopause: 55 BCP: 1 year hormones: none Surgical history: Left breast mastectomy and axillary node dissection Prior right breast biopsy 2 Pilonidal cyst surgery Medical history: HTN diabetes high cholesterol Social History: Nicotine: Negative Alcohol: Gated Drugs: Negative - Constitutional Constitutional: Denies chills, Denies fever - EENT Eyes: denies blurred vision, denies pain Ears: bilateral: tinnitus, deny: decreased hearing Ears, nose, mouth and throat: Denies headache, Denies sore throat - Breasts Breasts: bilateral: as per HPI - Cardiovascular Cardiovascular: Denies chest pain, Denies shortness of breath - Respiratory Respiratory: Denies cough, - Gastrointestinal Gastrointestinal: Denies abdominal pain, Denies diarrhea, Denies nausea, Denies vomiting - Genitourinary (Female) Genitourinary: Denies dysuria, Denies hematuria - Menstruation Menstruation: Reports postmenopausal - Musculoskeletal Musculoskeletal: Denies myalgias - Integumentary Integumentary: Denies pruritus, Denies rash - Neurological Neurological: Denies numbness, Denies weakness - Psychiatric Psychiatric: Denies anxiety, Denies depression - Endocrine Endocrine: Denies fatigue, Denies weight change - Hematologic/Lymphatic Comment: none Objective - Vital Signs Vital signs: Vital Signs Temp 98.4 F 10/21/20 09:29 Pulse 98 10/21/20 09:29 Resp 18 10/21/20 09:29 BP 147/84 10/21/20 09:29 Pulse Ox 95 10/21/20 09:29 Intake & Output 10/20/20 10/21/20 10/21/20 18:59 06:59 18:59 Weight 78.471 kg - Exam BMI 32.7 - Constitutional General appearance: Present: cooperative - EENT Eyes: Present: EOMI ENT: Present: hearing grossly normal - Neck Neck: Present: normal ROM - Respiratory Respiratory: bilateral: CTA - Cardiovascular Rhythm: regular Heart sounds: normal: S1, S2 - Integumentary Integumentary: Present: normal turgor - Musculoskeletal Musculoskeletal: Present: gait normal - Psychiatric Psychiatric: Present: A&O x's 3, appropriate affect, intact judgment & insight - Additional findings Additional findings: Breast Exam: BRA: 40C inspection: grade 2/3 ptosis, left mastectomy Palpation: Right breast: Multi-positional exam fibrocystic changes, particular tension at the 10:00 location of the prior biopsy-proven cancer reveals thickening but no definite discrete mass Right axilla: No adenopathy of concern Left chest wall: Status post mastectomy no evidence of any recurrent cancer Left axilla: No adenopathy of concern Patient with mild lymphedema left forearm/she wears a compression sleeve Port-A-Cath in place right chest wall Assessment and Plan Assessment: Impression: HTN diabetes high cholesterol Right breast T1 N0 triple negative G3 invasive ductal carcinoma, patient compl eting neoadjuvant chemotherapy cyclophosphamide and docetaxel Plan: 1. Needle localization excisional lumpectomy right breast, sentinel node injection, sentinel node biopsy, possible onco-plastic tissue transfer, possible mastopexy incision 2. discuss with DR. Dimas, consider removal of port-a-cath 3. follow up in three weeks CC: Dr. Licea
== END ==
LOC: WWCWWP 08:37
PROVIDERS: ATTEND Surgery
DX: C50.911 Malignant neoplasm of unspecified site of right female breast (principal); E11.9 Type 2 diabetes mellitus without complications; I10 Essential (primary) hypertension; E78.00 Pure hypercholesterolemia, unspecified; Z90.12 Acquired absence of left breast and nipple

== ENCOUNTER → 2020-11-11 | Outpatient (CLI) | payer MEDICARE ==
[2020-11-11 14:15] VITALS: BP 132/80; PULSE 89; RESP 18; TEMP 98.5
--- NOTE | 2020-11-11 14:51 | P.PN ---
Subjective Progress Note Date: 11/11/20 Principal diagnosis: right breast stage [id number] invasive ductal cancer [id number] right breast cancer Kely is a 70-year-old white female seen in consultation for Dr. Dimas regarding a recently diagnosed right breast invasive ductal carcinoma. Of significance is the fact that she underwent a left breast mastectomy approximately 10 years ago for a stage III T2N3M0 invasive ductal cancer. At that time she underwent chemotherapy and radiation therapy. She had been taking letrazole which she stopped prior to the chemotherapy which was being given for the right breast cancer. She had done well until March 2020 when she noted nodularity in her right lateral breast. Secondary to COVID radiographic evaluation was delayed until July 2020. A right breast mammogram at that time revealed a 1.5 cm equal density in the upper-outer quadrant of the right breast. An ultrasound was then performed which confirmed a 1.6 x 1.9 cm solid lesion at the 10:00 location. A 2.4 cm lymph node in the axilla was noted. Ultrasound core biopsy of these was performed on . The lesion in the breast was consistent with an invasive ductal carcinoma grade 3. The lymph node was biopsied on 3220. This revealed benign lymphoid tissue with focal histiocytes. She did develop lymphedema following the left mastectomy and wears a compression sleeve. She did have an open biopsy of the right breast in the remote past which was benign. She has had 4 courses of chemotherapy which she finished on SaturdayNovember 04. She is receiving cyclophosphamide and docetaxel. She did receive iron infusions on 2 occasions during the chemotherapy. A Port-A-Cath was placed on 08/26/2020 for the chemotherapy. She would like this to be removed. She spoke to Dr. Dimas regarding this and she was told she dod not need this any more. She sates the lump has decreased in size. No new lumps masses or nodules of concern were noted in her breasts. Family History: none Hormonal History: menarche: 13 , breast fed: no, age at first : 28 menopause: 55 BCP: 1 year hormones: none Surgical history: Left breast mastectomy and axillary node dissection Prior right breast biopsy 2 Pilonidal cyst surgery port a cath placement Medical history: HTN diabetes high cholesterol Social History: Nicotine: Negative Alcohol: none Drugs: Negative - Constitutional Constitutional: Denies chills, Denies fever - EENT Eyes: denies blurred vision, denies pain Ears: bilateral: tinnitus, deny: decreased hearing Ears, nose, mouth and throat: Denies headache, Denies sore throat - Breasts Breasts: bilateral: as per HPI - Cardiovascular Cardiovascular: Denies chest pain, Denies shortness of breath - Respiratory Respiratory: Denies cough, - Gastrointestinal Gastrointestinal: Denies abdominal pain, Denies diarrhea, Denies nausea, Denies vomiting - Genitourinary (Female) Genitourinary: Denies dysuria, Denies hematuria - Menstruation Menstruation: Reports postmenopausal - Musculoskeletal Musculoskeletal: Denies myalgias - Integumentary Integumentary: Denies pruritus, Denies rash - Neurological Neurological: Denies numbness, Denies weakness - Psychiatric Psychiatric: Denies anxiety, Denies depression - Endocrine Endocrine: Denies fatigue, Denies weight change - Hematologic/Lymphatic Comment: none Objective - Vital Signs Vital signs: Vital Signs Temp 98.5 F 11/11/20 14:12 Pulse 89 11/11/20 14:12 Resp 18 11/11/20 14:12 BP 132/80 11/11/20 14:12 Pulse Ox 98 11/11/20 14:12 Intake & Output 11/10/20 11/11/20 11/11/20 18:59 06:59 18:59 Weight 78.471 kg - Exam BMI 32.7 - Constitutional General appearance: Present: cooperative - EENT Eyes: Present: EOMI ENT: Present: hearing grossly normal - Neck Neck: Present: normal ROM - Respiratory Respiratory: bilateral: CTA - Cardiovascular Rhythm: regular Heart sounds: normal: S1, S2 - Gastrointestinal General gastrointestinal: Present: soft - Integumentary Integumentary: Present: normal turgor - Musculoskeletal Musculoskeletal: Present: gait normal - Psychiatric Psychiatric: Present: A&O x's 3, appropriate affect, intact judgment & insight - Additional findings Additional findings: Breast Exam: BRA: 40C inspection: Left chest wall incision clean and dry well-healed, right chest Port-A-Cath, grade 3 ptosis right Palpation: Right breast: Multiple positional exam fibrocystic changes, no palpable cancer on today's evaluation Right axilla: No adenopathy of concern Left chest wall: No evidence of recurrent cancer Left axilla: No adenopathy of concern Patient with mild lymphedema left arm Assessment and Plan Assessment: Impression: HTN diabetes high cholesterol Stage I right breast cancer, patient finished neoadjuvant chemotherapy ready for surgical intervention Plan: 1. Needle localization excisional lumpectomy right breast 2. [employer] node injection sentinel node biopsy right 3. Possible axillary node dissection 4. Possible lymphatic mapping with methylene blue 5. Possible Onco-plastic tissue transfer 6. medical clearance from Dr. Licea Risk and benefits of the surgery discussed with the patient. This included but are not limited to bleeding, infection, reaction to the anesthetic. Additionally if the margins were to be positive would be possibly would have to resect more tissue. The risk of sentinel node biopsy/axillary dissection include but are not limited to bleeding, infection, reaction to the anesthetic. There may be some numbness to the inner arm, the risk of waiting scapula was discussed as well as lymphedema. The patient understands all these and wishes to proceed.
== END ==
LOC: WWCWWP 13:33
PROVIDERS: ATTEND Surgery
DX: C50.911 Malignant neoplasm of unspecified site of right female breast (principal); E11.9 Type 2 diabetes mellitus without complications; E78.00 Pure hypercholesterolemia, unspecified; I10 Essential (primary) hypertension; Z90.12 Acquired absence of left breast and nipple

== ENCOUNTER 2020-11-29 07:18 | Day surgery (SDC) | payer MEDICARE ==
[2020-11-28 09:43] VITALS: BMI 33.6
[~2020-11-29 07:18] MED LIST changes: +HEPARIN SODIUM,PORCINE/PF 5,000 UNIT/0.5 ML SYRINGE SQ PRN; -ONDANSETRON 4 MG/2 ML VIAL IVP ONE
[2020-11-29] MEDS ORDERED: ALPRAZolam 0.25 MG TAB ONE (08:01)
[2020-11-29 08:14] LABS: Glucose,Whole Blood 318 mg/dL (75-99)
[2020-11-29] MEDS ORDERED: LACTATED RINGERS 1,000 ML IV ONE ×2 (08:22→12:34)
[2020-11-29] MEDS: ONDANSETRON 4 MG/2 ML VIAL IVP ONE ×2 (08:22→14:05)
[2020-11-29] MEDS ORDERED: INSULIN ASPART (NovoLOG) 100 UNIT/ML VIAL SQ ONE (08:23)
[2020-11-29] MEDS ORDERED: LIDOCAINE 1% INJ 10MG/ML (20 ML MDV) SQ ONE (08:59)
--- NOTE | 2020-11-29 09:29 | USB ---
EXAM: Needle localization with wire placement. CLINICAL HISTORY: Right breast mass 10:00 TECHNIQUE: Needle localization with wire placement under sonographic guidance. COMPARISON: 07/21/2020 FINDINGS: The procedure of needle localization with wire placement Benefits, alternatives, and risks were discussed. An informed consent was then obtained. The shortest pathway for procedure was chosen. Shortest pathway was lateral approach. The overlying skin was prepped and draped in usual sterile fashion. Lidocaine buffered with bicarbonate was used as anesthetic into the skin and subcutaneous tissue up to the level of area of concern. A 7 cm needle was used. It was placed via a lateral approach under sonographic guidance. Center thick portion of the wire is through the mass. At this point, wire was placed and the needle was withdrawn. The wire was fixed to patient's skin. The patient tolerated the procedure well without any immediate complication. The patient was kept in the radiology department for short stay after the procedure and then taken to surgery. IMPRESSION: Successful, uncomplicated needle localization with wire placement of right breast mass at 10:00. Pathology Results: Malignant A. 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 See Surgical Pathology Cancer Case Summary. B. RIGHT AXILLARY TISSUE: Benign fibroadipose tissue. No lymph nodes are identified. C. SENTINEL LYMPH NODE, BIOPSY: Two lymph nodes negative for metastasis. CK7 and ILYA immunoperoxidase stains are confirmatory (controls appropriate). D. RIGHT BREAST, NEW MARGIN MEDIAL, EXCISION: Benign breast with fibrocystic changes. E. RIGHT BREAST, NEW MARGIN SUPERIOR, EXCISION: Benign breast with fibrocystic changes. F. RIGHT BREAST, NEW MARGIN INFERIOR, EXCISION: Benign breast with fibrocystic changes. G. RIGHT BREAST, NEW MARGIN LATERAL, EXCISION: Benign breast with fibrocystic changes. H. RIGHT BREAST, NEW MARIGN ANTERIOR, EXCISION: Benign skin and subcutaneous tissue. Recommendation Surgical consult of the right breast. TAWNY
--- NOTE | 2020-11-29 09:42 | NM ---
EXAMINATION TYPE: NM sentinel node injection DATE OF EXAM: 11/29/2020 COMPARISON: NONE HISTORY: RIGHT BREAST CA TECHNIQUE AND FINDINGS: The procedure of sentinel lymph node injection was explained to the patient. The benefits, alternatives, and risks were discussed. An informed consent was then obtained. Overlying skin is cleaned with sterile alcohol. Following this, 517 uCi Tc99m Tilmanocept was inject ed in the upper outer aspect of the right nipple intradermally. The patient tolerated the procedure well without any immediate complication. The patient was kept in the radiology department for short stay after the procedure and then taken to surgery for surgical p rocedure what is presumed intraoperative gamma probe will be used for sentinel lymph node detection. IMPRESSION: right breast radiotracer injection for sentinel node localization as above.
--- NOTE | 2020-11-29 10:12 | P.NAPBC ---
NAPBC Queries - NAPBC Queries Was patient's case review presented at [facility] tumor board? If no, comment.: Yes Was patient's pathology reviewed at [facility]? If no, comment.: Yes Was breast conservation surgery offered? If no, comment.: Yes Was sentinel node biopsy offered? If no, comment.: Yes Was diagnosis confirmed by percutaneous core biopsy? If no, comment.: Yes Is patient mastectomy patient?: No Was a preop referral to reconstructive surgeon offered?: No Clinical Stage: [id number], right breast
[2020-11-29] MEDS ORDERED: LIDOCAINE 1% INJ 10MG/ML (20 ML MDV) ONE (10:58)
[2020-11-29] MEDS ORDERED: PROPOFOL 10 MG/ML 20 ML VIAL IV ONE (10:58)
[2020-11-29] MEDS ORDERED: SUCCINYLCHOLINE CHLORIDE 100 MG/5 ML SYR IV ONE (10:58)
[2020-11-29] MEDS ORDERED: MIDAZOLAM 2 MG/2 ML VIAL ONE (10:58)
[2020-11-29] MEDS ORDERED: fentaNYL (PF) 50 MCG/ML 2 ML AMP ONE (10:58)
[2020-11-29] MEDS ORDERED: PHENYLEPHRINE-0.9% NACL SYG 1,000 MCG/10 ML SYRINGE ONE (10:58)
--- NOTE | 2020-11-29 12:34 | P.OP ---
Date of Procedure: 11/29/20 Preoperative Diagnosis: History of right breast cancer Postoperative Diagnosis: History of right breast cancer Procedure(s) Performed: Removal of right subclavian Port-A-Cath Anesthesia: JAMIA Surgeon: Job West Pathology: none sent Condition: stable Disposition: PACU Description of Procedure: The patient had been previously intubated. Her right chest was prepped and draped usual fashion. A skin incision was made over the Port-A-Cath. Then using blunt sharp dissection with cautery the Port-A-Cath was dissected free and removed. The skin was closed by Dr. Paz Nino. Please see her operative chart.
--- NOTE | 2020-11-29 12:52 | MM ---
Single view right breast specimen INDICATION: Right breast specimen COMPARISON: 07/21/2020 FINDINGS: There is a distal localization wire seen traversing through a mass within the breast specimen. There is an adjacent biopsy clip. For full details please see the surgical report. IMPRESSION: There is a distal localization wire seen traversing through a mass within the breast specimen. There is an adjacent biopsy clip. For full details please see the surgical report. Pathology Results: Malignant A. 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 See Surgical Pathology Cancer Case Summary. B. RIGHT AXILLARY TISSUE: Benign fibroadipose tissue. No lymph nodes are identified. C. SENTINEL LYMPH NODE, BIOPSY: Two lymph nodes negative for metastasis. CK7 and ILYA immunoperoxidase stains are confirmatory (controls appropriate). D. RIGHT BREAST, NEW MARGIN MEDIAL, EXCISION: Benign breast with fibrocystic changes. E. RIGHT BREAST, NEW MARGIN SUPERIOR, EXCISION: Benign breast with fibrocystic changes. F. RIGHT BREAST, NEW MARGIN INFERIOR, EXCISION: Benign breast with fibrocystic changes. G. RIGHT BREAST, NEW MARGIN LATERAL, EXCISION: Benign breast with fibrocystic changes. H. RIGHT BREAST, NEW MARIGN ANTERIOR, EXCISION: Benign skin and subcutaneous tissue. Recommendation Surgical consult of the right breast. TAWNY
--- NOTE | 2020-11-29 12:57 | P.OP ---
Date of Procedure: 11/29/20 Preoperative Diagnosis: Right breast invasive ductal carcinoma/status post neoadjuvant chemotherapy Postoperative Diagnosis: Same Procedure(s) Performed: Right breast sentinel node biopsy, localization lumpectomy, 60 cm onco-plastic tissue transfer Anesthesia: GLENA Surgeon: Caitlin Domingo Estimated Blood Loss (ml): 10 IV fluids (ml): 900 Pathology: other ([place] lymph node, breast tissue lumpectomy) Condition: stable Disposition: same day Indications for Procedure: Patient status post neoadjuvant chemotherapy for invasive ductal right breast cancer Operative Findings: Dense breast tissue Description of Procedure: There is a 62-year-old white female status post neoadjuvant chemotherapy for a right breast cancer. She now presents for sentinel node biopsy and lumpectomy. The patient was initially seen in the radiology suite where ultrasound guided localization of the area of concern was performed. And radioactive substance was injected in the periareolar area to identify the sentinel lymph node. She was then brought to the operative suite and following induction of anesthesia interrogation of the axilla reveal radioactivity to be present. The right breast and axilla were then prepped and draped in a sterile fashion. An incision was made using the Benjamin counter as guidance and the area of the lymph node was dissected free. This was removed and the 10 second count on the lymph node was approximately 176,000 the 10 second count was 17. The axilla as well irrigated. No other adenopathy of concern was identified. After assured that hemostasis was attained the deep tissues were closed using 3-0 Vicryl suture. This was followed by closure of the skin with 4-[address] Foster into the room and remove the Port-A-Cath. The subcutaneous tissues were closed using 3-0 Vicryl suture and the skin was closed using a 4-0 Monocryl. The area of the breast was approached. An incision was made and carried down to the hook of the needle. Surrounding tissue was excised. The area of excision was 7 cm x 5 cm. The specimen was painted for orientation. Radiograph was performed and the lump was noted to be removed as well as the clip. Additional margins were obtained posterior dissection was performed onto the chest wall, anterior skin was removed new superior, medial, lateral and inferior margins were obtained and painted for localization. Titanium clips were placed to rj the cavity. The superior pillar of tissue was mobilized 5 cm x 2 cm and the inferior pillar of tissue was mobilized 5 cm x 3 cm . Onco-plastic tissue transfer was 60 cm. Surgicel in powder form was placed in the cavity prior to closure. The patient tolerated procedure in stable condition. All instrument and sponge counts were correct at the end of the case.
--- NOTE | 2020-11-29 12:59 | P.DS ---
Providers Attending physician: Caitlin Domingo Primary care physician: Magen Licea Plan - Discharge Summary Discharge Rx Participant: No New Discharge Prescriptions: No Action metFORMIN HCL [Glucophage] 1,000 mg PO BID Losartan [Cozaar] 50 mg PO AC-BRKFST Atorvastatin [Lipitor] 10 mg PO HS Labetalol [Trandate] 200 mg PO AC-BRKFST Krill/Om-3/Dha/Epa/Phospho/Ast [Megared Viking-3 Krill 350 mg] 1 dose PO DAILY C,E,Zinc,Copper 11/Oebth3v/Lut [Ocuvite Adult 50 Plus Softgel] 1 each PO QAM Acetaminophen Tab [Tylenol Tab] 1,000 mg PO Q6HR PRN #30 tablet PRN Reason: Pain Empagliflozin [Jardiance] 25 mg PO DAILY Discharge Medication List Atorvastatin [Lipitor] 10 mg PO HS 07/15/20 [History] Labetalol [Trandate] 200 mg PO AC-BRKFST 07/15/20 [History] Losartan [Cozaar] 50 mg PO AC-BRKFST 07/15/20 [History] metFORMIN HCL [Glucophage] 1,000 mg PO BID 07/15/20 [History] C,E,Zinc,Copper 11/Dpkje5s/Lut [Ocuvite Adult 50 Plus Softgel] 1 each PO QAM 08/19/20 [History] Krill/Om-3/Dha/Epa/Phospho/Ast [Megared Viking-3 Krill 350 mg] 1 dose PO DAILY 08/19/20 [History] Acetaminophen Tab [Tylenol Tab] 1,000 mg PO Q6HR PRN #30 tablet 08/26/20 [Rx] Empagliflozin [Jardiance] 25 mg PO DAILY 11/28/20 [History] Follow up Appointment(s)/Referral(s): Caitlin Domingo MD [STAFF PHYSICIAN] - 12/09/20 1:20 pm Activity/Diet/Wound Care/Special Instructions: Wear bra at all times May shower after [address] for 24 hours or if taking narcotic pain medication Cold Dr. Mina Valero for any questions or concerns Discharge Disposition: HOME SELF-CARE
[2020-11-29 13:21] VITALS: TEMP 97
[2020-11-29 13:36] LABS: Glucose,Whole Blood 250 mg/dL (75-99)
[2020-11-29] MEDS: HYDROmorphone 0.5 MG/0.5 ML SYRINGE IVP PRN ×2 (13:48→13:58)
[2020-11-29 14:12] VITALS: RESP 16
[2020-11-29] MEDS ORDERED: METOPROLOL TARTRATE 5 MG/5 ML VIAL IVP ONE ×2 (14:18→14:40)
[2020-11-29] MEDS ORDERED: SODIUM CHLORIDE 0.9% 1,000 ML IV ONE (14:58)
[2020-11-29] MEDS ORDERED: hydrALAZINE HCL 20 MG/ML 1 ML VIAL ONE (15:28)
[2020-11-29] MEDS ORDERED: hydrALAZINE HCL 20 MG/ML 1 ML VIAL IVP ONE (15:40)
[2020-11-29] MEDS ORDERED: SCOPOLAMINE 1.5MG/72HR PATCH TRANSDERM ONE (15:40)
[2020-11-29 16:57] VITALS: BP 153/76; PULSE 70
== END 2020-11-29 17:14 | disposition home or self-care (01) ==
LOC: OR 07:18
PROVIDERS: ATTEND Surgery
DX: C50.911 Malignant neoplasm of unspecified site of right female breast (principal); N60.11 Diffuse cystic mastopathy of right breast; Z45.2 Encounter for adjustment and management of vascular access device; I10 Essential (primary) hypertension; E11.9 Type 2 diabetes mellitus without complications; E78.5 Hyperlipidemia, unspecified; E78.00 Pure hypercholesterolemia, unspecified; Z90.12 Acquired absence of left breast and nipple; Z98.891 History of uterine scar from previous surgery; Z98.890 Other specified postprocedural states; Z85.3 Personal history of malignant neoplasm of breast; Z92.21 Personal history of antineoplastic chemotherapy; Z79.84 Long term (current) use of oral hypoglycemic drugs; Z79.899 Other long term (current) drug therapy
CPT/HCPCS: 19301; 36590; 88305; 88342; 88307; 88341; 76098; 38792; A9520; J2250; J0360; J0690; J2405; J2001; J3010; J2370; J0330; J2704; J1170; J1644

== ENCOUNTER → 2020-12-09 | Outpatient (CLI) | payer MEDICARE ==
[2020-12-09 09:33] VITALS: BP 155/79; PULSE 84; RESP 18; TEMP 98.6
--- NOTE | 2020-12-09 10:38 | P.PN ---
Progress Note - Text Progress Note Date: 12/09/20 Kely is a 70 year old white female status post a right lumpectomy and sentinel node biopsy on . Patient tolerated the procedure without difficulty. Her pathology revealed negative margins on the lumpectomy specimen the lesion was 9 mm in size and 2 lymph nodes which were negative for metastatic disease. From the lateral sidewall earlier this morning and is going to undergo radiation therapy followed by an antiestrogen. Status post neoadjuvant chemotherapy. Physical Exam: Incision and axilla is clean and dry Incision breast and for Port-A-Cath removal clean and dry sutures to be removed Lungs: Clear Heart: Regular rate and rhythm Impression: 1. Patient status post left breast mastectomy December 2010;T2N3M0 2. right lumpectomy and SNB on 11-29-20 Stage I T1N0M0; patient has had neoadjuvant chemotherapy, she is going to follow with radiation and medical oncology 3. Follow-up here in 3 months CC: Dr. Licea
== END ==
LOC: WWCWWP 09:12
PROVIDERS: ATTEND Surgery
DX: Z09 Encounter for follow-up examination after completed treatment for conditions other than malignant neoplasm (principal); Z90.12 Acquired absence of left breast and nipple; Z98.890 Other specified postprocedural states; Z92.21 Personal history of antineoplastic chemotherapy

== ENCOUNTER → 2021-08-15 | Outpatient (CLI) | payer MEDICARE ==
--- NOTE | 2021-08-15 14:21 | MM ---
Reason for exam: follow-up at short interval from prior study. Last mammogram was performed 1 year and 1 month ago. History: Patient is postmenopausal and has history of breast cancer at age 70. Malignant US breast localization RT of the right breast, November 29, 2020. Lumpectomy of the right breast, November 29, 2020. Malignant US biopsy breast VAD RT of the right breast, July 21, 2020. Mastectomy of the left breast, December 29, 2010. Malignant US left guided VAD of the left breast, December 19, 2010. Malignant US left guided VAD of the left breast, December 19, 2010. Benign US left CoreBiopsy of the left breast, May 15, 2005. Benign core biopsy of the right breast, April 2005. Benign stereotactic core biopsy of the right breast, May 22, 2002. Excisional biopsy of the left breast. Chemotherapy. Radiation therapy. Taking antineoplastic beginning at age 60. Physical Findings: A clinical breast exam by your physician is recommended on an annual basis and results should be correlated with mammographic findings. MG 3D Diag Mammo W/Cad RT CC, MLO, and XCCL view(s) were taken of the right breast. Prior study comparison: July 21, 2020, right breast MG diagnostic mammo RT wo CAD. July 13, 2020, right breast MG 3d diag mammo w/cad RT. The breast tissue is heterogeneously dense. This may lower the sensitivity of mammography. Previous mammotome biopsy in the right breast. Post surgical and post therapy change right breast. Multiple course and round calcifications are redemonstrated. These results were verbally communicated with the patient and result sheet given to the patient on 08/15/21. ASSESSMENT: Probably benign, BI-RAD 3 RECOMMENDATION: Follow-up diagnostic mammogram of the right breast in 6 months.
== END | disposition home or self-care (01) ==
LOC: RADMAMWWP 12:37
PROVIDERS: ATTEND Radiology Radiation Oncology
DX: R92.8 Other abnormal and inconclusive findings on diagnostic imaging of breast (principal); Z78.0 Asymptomatic menopausal state; Z85.3 Personal history of malignant neoplasm of breast
CPT/HCPCS: 77065; G0279; 77061

== ENCOUNTER 2021-09-15 12:42 | Inpatient (IN) | payer MEDICARE ==
--- NOTE | 2021-09-15 13:03 | ED ---
General Adult HPI - General Chief complaint: Shortness of Breath Stated complaint: O2 is low Time Seen by Provider: 09/15/21 12:45 Source: patient, RN notes reviewed, old records reviewed Mode of arrival: wheelchair Limitations: no limitations - History of Present Illness Initial comments: This is a 70-year-old female presents emergency department stating that for the last 2 weeks she's had some congestion and occasional cough which is dry. Patient states she also has had shortness of breath associated with it and states anytime she moves around shortness of breath gets worse. Patient denies any chest pain or palpitations. Patient denies abdominal pain patient denies nausea vomiting diarrhea. Patient states she had a low-grade fever yesterday of 100. Patient states she didn't get the COVID vaccine and the posterior. Patient denies any headache patient denies any numbness or weakness. Patient denies lightheadedness or dizziness. Patient states she has no history of any difficulty breathing. She has no history of congestive heart failure. Patient denies any swelling to her legs or calf tenderness - Related Data Home Medications Medication Instructions Recorded Confirmed Atorvastatin [Lipitor] 10 mg PO HS 07/15/20 09/15/21 Labetalol [Trandate] 200 mg PO AC-BRKFST 07/15/20 09/15/21 Losartan [Cozaar] 50 mg PO AC-BRKFST 07/15/20 09/15/21 metFORMIN HCL [Glucophage] 1,000 mg PO AC-BID 07/15/20 09/15/21 C,E,Zinc,Copper 11/Pduxq5v/Lut 1 cap PO QAM 08/19/20 09/15/21 [Ocuvite Adult 50 Plus Softgel] Krill/Om-3/Dha/Epa/Phospho/Ast 1 cap PO DAILY 08/19/20 09/15/21 [Megared [place]-3 Krill 350 mg] Empagliflozin [Jardiance] 25 mg PO W/LUNCH 11/28/20 09/15/21 Pembrolizumab [Keytruda] 200 mg IV Q21D 09/15/21 09/15/21 Allergies Allergy/AdvReac Type Severity Reaction Status Date / Time No Known Allergies Allergy Verified 09/15/21 14:15 Review of Systems ROS Statement: Those systems with pertinent positive or pertinent negative responses have been documented in the HPI. ROS Other: All systems not noted in ROS Statement are negative. Past Medical History Past Medical History: Cancer, Diabetes Mellitus, Hyperlipidemia, Hypertension Additional Past Medical History / Comment(s): left breast cancer 2009 (m astectomy, chemo & radiation tx)., Right breast cancer -new diagnosis. History of Any Multi-Drug Resistant Organisms: None Reported Past Surgical History: Breast Surgery Additional Past Surgical History / Comment(s): Left breast mastectomy, rt breast biopsy & lymph node bx jul 21 2020. Past Anesthesia/Blood Transfusion Reactions: No Reported Reaction, Motion Sickness Past Psychological History: No Psychological Hx Reported Smoking Status: Never smoker Past Alcohol Use History: None Reported Past Drug Use History: None Reported - Past Family History Mother Family Medical History: Diabetes Mellitus Additional Family Medical History / Comment(s): dememtia General Exam - General Exam Comments Initial Comments: GENERAL: Patient is well-developed and well-nourished. Patient is nontoxic and well- hydrated and is in mild distress. ENT: Neck is soft and supple. No significant lymphadenopathy is noted. Oropharynx is clear. Moist mucous membranes. Neck has full range of motion without eliciting any pain. EYES: The sclera were anicteric and conjunctiva were pink and moist. Extraocular movements were intact and pupils were equal round and reactive to light. Eyelids were unremarkable. PULMONARY: Unlabored respirations. Good breath sounds bilaterally. Patient has some subtle crackles in the right base CARDIOVASCULAR: There is a regular rate and rhythm without any murmurs gallops or rubs. ABDOMEN: Soft and nontender with normal bowel sounds. SKIN: Skin is clear with no lesions or rashes and otherwise unremarkable. NEUROLOGIC: Patient is alert and oriented x3. Cranial nerves II through XII are grossly intact. Motor and sensory are also intact. Normal speech, volume and content. Symmetrical smile. MUSCULOSKELETAL: Normal extremities with adequate strength and full range of motion. LYMPHATICS: No significant lymphadenopathy is noted PSYCHIATRIC: Normal psychiatric evaluation. Limitations: no limitations Course Vital Signs 09/15/21 09/15/21 09/15/21 12:45 14:06 15:12 Temperature 97.9 F 98.8 F Pulse Rate 100 93 Respiratory 22 16 18 Rate Blood Pressure 101/66 130/68 O2 Sat by Pulse 81 L 98 Oximetry 09/15/21 17:43 Temperature Pulse Rate 93 Respiratory 18 Rate Blood Pressure 131/61 O2 Sat by Pulse 97 Oximetry Medical Decision Making - Medical Decision Making Patient had a CAT scan it showed extensive infiltrates but no PE consistent with the chest x-ray that showed extensive infiltrates. I spoke with sounds physician's name agreed to admit the patient admitted the patient I consult pulmonary. EKG shows sinus rhythm at 90 bpm IN interval is 126 QRS is 111 QT interval 347 QTC is 42. Patient's EKG shows no ST segment elevation or depression. - Lab Data Result diagrams: 09/15/21 15:02 09/15/21 15:02 Lab Results 09/15/21 09/15/21 09/15/21 Range/Units 15:02 15:02 15:02 WBC 6.8 (3.8-10.6) k/uL RBC 3.87 (3.80-5.40) m/uL Hgb 11.0 L (11.4-16.0) gm/dL Hct 34.3 (34.0-46.0) % MCV 88.6 (80.0-100.0) fL MCH 28.5 (25.0-35.0) pg MCHC 32.2 (31.0-37.0) g/dL RDW 13.9 (11.5-15.5) % Plt Count 616 H (150-450) k/uL MPV 7.2 Neutrophils % 81 % Lymphocytes % 11 % Monocytes % 7 % Eosinophils % 0 % Basophils % 0 % Neutrophils # 5.5 (1.3-7.7) k/uL Lymphocytes # 0.7 L (1.0-4.8) k/uL Monocytes # 0.4 (0-1.0) k/uL Eosinophils # 0.0 (0-0.7) k/uL Basophils # 0.0 (0-0.2) k/uL Hypochromasia Moderate PT 11.0 (9.0-12.0) sec INR 1.0 (<1.2) APTT 23.2 (22.0-30.0) sec D-Dimer 1.05 H (<0.60) mg/L FEU Sodium 129 L (137-145) mmol/L Potassium 5.1 (3.5-5.1) mmol/L Chloride 96 L (98-107) mmol/L Carbon Dioxide 23 (22-30) mmol/L Anion Gap 10 mmol/L BUN 13 (7-17) mg/dL Creatinine 0.39 L (0.52-1.04) mg/dL Est GFR (CKD-EPI)AfAm >90 (>60 ml/min/1.73 sqM) Est GFR (CKD-EPI)NonAf >90 (>60 ml/min/1.73 sqM) Glucose 365 H (74-99) mg/dL Plasma Lactic Acid Joe (0.7-2.0) mmol/L Calcium 8.5 (8.4-10.2) mg/dL Magnesium 1.5 L (1.6-2.3) mg/dL Total Bilirubin 0.8 (0.2-1.3) mg/dL AST 26 (14-36) U/L ALT 21 (4-34) U/L Alkaline Phosphatase 83 (38-126) U/L Troponin I (0.000-0.034) ng/mL NT-Pro-B Natriuret Pep pg/mL Total Protein 6.9 (6.3-8.2) g/dL Albumin 3.3 L (3.5-5.0) g/dL Coronavirus (PCR) (Not Detectd) 09/15/21 09/15/21 09/15/21 Range/Units 15:02 15:02 15:02 WBC (3.8-10.6) k/uL RBC (3.80-5.40) m/uL Hgb (11.4-16.0) gm/dL Hct (34.0-46.0) % MCV (80.0-100.0) fL MCH (25.0-35.0) pg MCHC (31.0-37.0) g/dL RDW (11.5-15.5) % Plt Count (150-450) k/uL MPV Neutrophils % % Lymphocytes % % Monocytes % % Eosinophils % % Basophils % % Neutrophils # (1.3-7.7) k/uL Lymphocytes # (1.0-4.8) k/uL Monocytes # (0-1.0) k/uL Eosinophils # (0-0.7) k/uL Basophils # (0-0.2) k/uL Hypochromasia PT (9.0-12.0) sec INR (<1.2) APTT (22.0-30.0) sec D-Dimer (<0.60) mg/L FEU Sodium (137-145) mmol/L Potassium (3.5-5.1) mmol/L Chloride (98-107) mmol/L Carbon Dioxide (22-30) mmol/L Anion Gap mmol/L BUN (7-17) mg/dL Creatinine (0.52-1.04) mg/dL Est GFR (CKD-EPI)AfAm (>60 ml/min/1.73 sqM) Est GFR (CKD-EPI)NonAf (>60 ml/min/1.73 sqM) Glucose (74-99) mg/dL Plasma Lactic Acid Joe 1.4 (0.7-2.0) mmol/L Calcium (8.4-10.2) mg/dL Magnesium (1.6-2.3) mg/dL Total Bilirubin (0.2-1.3) mg/dL AST (14-36) U/L ALT (4-34) U/L Alkaline Phosphatase (38-126) U/L Troponin I <0.012 (0.000-0.034) ng/mL NT-Pro-B Natriuret Pep 135 pg/mL Total Protein (6.3-8.2) g/dL Albumin (3.5-5.0) g/dL Coronavirus (PCR) (Not Detectd) 09/15/21 Range/Units 15:02 WBC (3.8-10.6) k/uL RBC (3.80-5.40) m/uL Hgb (11.4-16.0) gm/dL Hct (34.0-46.0) % MCV (80.0-100.0) fL MCH (25.0-35.0) pg MCHC (31.0-37.0) g/dL RDW (11.5-15.5) % Plt Count (150-450) k/uL MPV Neutrophils % % Lymphocytes % % Monocytes % % Eosinophils % % Basophils % % Neutrophils # (1.3-7.7) k/uL Lymphocytes # (1.0-4.8) k/uL Monocytes # (0-1.0) k/uL Eosinophils # (0-0.7) k/uL Basophils # (0-0.2) k/uL Hypochromasia PT (9.0-12.0) sec INR (<1.2) APTT (22.0-30.0) sec D-Dimer (<0.60) mg/L FEU Sodium (137-145) mmol/L Potassium (3.5-5.1) mmol/L Chloride (98-107) mmol/L Carbon Dioxide (22-30) mmol/L Anion Gap mmol/L BUN (7-17) mg/dL Creatinine (0.52-1.04) mg/dL Est GFR (CKD-EPI)AfAm (>60 ml/min/1.73 sqM) Est GFR (CKD-EPI)NonAf (>60 ml/min/1.73 sqM) Glucose (74-99) mg/dL Plasma Lactic Acid Joe (0.7-2.0) mmol/L Calcium (8.4-10.2) mg/dL Magnesium (1.6-2.3) mg/dL Total Bilirubin (0.2-1.3) mg/dL AST (14-36) U/L ALT (4-34) U/L Alkaline Phosphatase (38-126) U/L Troponin I (0.000-0.034) ng/mL NT-Pro-B Natriuret Pep pg/mL Total Protein (6.3-8.2) g/dL Albumin (3.5-5.0) g/dL Coronavirus (PCR) Not Detected (Not Detectd) Disposition Clinical Impression: Pulmonary infiltrates, Hypoxia Disposition: ADMITTED IP TO THIS [facility] Time of Disposition: 17:30
--- NOTE | 2021-09-15 14:43 | XR ---
EXAMINATION TYPE: XR chest 2V DATE OF EXAM: 09/15/2021 COMPARISON: X-ray dated 08/26/2020 HISTORY: Difficulty breathing TECHNIQUE: Frontal and lateral views of the chest are obtained. FINDINGS: Extensive bilateral mid and lower lung zones patchy opacities/areas of consolidation, not appreciated previously. They could represent extensive pulmonary infection/pneumonia, please correlate clinicall y. Underlying lung lesions or fibrosis can't be excluded. Follow-up to complete resolution is advised. Subtle infiltration is seen in the left lung apex. No si zable pleural effusion or definite pneumothorax. Cardiac size can't be properly assessed. Degenerativ e changes of the thoracic spine. IMPRESSION: Extensive bilateral mid and lower lung zone patchy opacities/areas of consolidation as described abov e, please correlate clinically for extensive infection/pneumonia. Follow-up to resolution is advised to rule out underlying lesion or pulmonary fibrosis.
[2021-09-15 15:19] LABS: Basophils % (A) 0 %; Eosinophils % (A) 0 %; HCT 34.3 % (34.0-46.0); Hypochromasia Moderate; Lymphocytes # (A) 0.7 k/uL (1.0-4.8); Lymphocytes % (A) 11 %; MCH 28.5 pg (25.0-35.0); MCHC 32.2 g/dL (31.0-37.0); MCV 88.6 fL (80.0-100.0); Mean Platelet Volume 7.2; Monocytes # (A) 0.4 k/uL (0-1.0); Monocytes % (A) 7 %; Neutrophils # (A) 5.5 k/uL (1.3-7.7); Neutrophils % (A) 81 %; Platelet Count 616 k/uL (150-450); RBC 3.87 m/uL (3.80-5.40); RDW 13.9 % (11.5-15.5); WBC 6.8 k/uL (3.8-10.6)
[2021-09-15 15:27] LABS: ALT 21 U/L (4-34); AST 26 U/L (14-36); African American GFR (CKD) >90 (>60 ml/min/1.73 sqM); Albumin 3.3 g/dL (3.5-5.0); Alkaline Phosphatase 83 U/L (38-126); Anion Gap 10 mmol/L; Blood Urea Nitrogen 13 mg/dL (7-17); Calcium 8.5 mg/dL (8.4-10.2); Carbon Dioxide 23 mmol/L (22-30); Chloride 96 mmol/L (98-107); Glucose 365 mg/dL (74-99); Magnesium 1.5 mg/dL (1.6-2.3); Non-African American GFR(CKD) >90 (>60 ml/min/1.73 sqM); Potassium 5.1 mmol/L (3.5-5.1); Sodium 129 mmol/L (137-145); Total Bilirubin 0.8 mg/dL (0.2-1.3); Total Protein 6.9 g/dL (6.3-8.2)
[2021-09-15 15:30] LABS: Partial Thromboplastin Time 23.2 sec (22.0-30.0)
--- NOTE | 2021-09-15 16:30 | CT ---
EXAMINATION TYPE: CT chest angio for PE DATE OF EXAM: 09/15/2021 COMPARISON: CT dated 01/23/2011 HISTORY: Elevated d-dimer. CT DLP: 259 mGy.cm. Automated Exposure Control for Dose Reduction was Utilized. TECHNIQUE AND CONTRAST: CTA scan of the thorax is performed with IV Contrast, patient injected with 100 mL of Isovue 370, pul [facility]. MIP Images are created on an independent workstation and reviewed. FINDINGS: No definite filling defect within the pulmonary trunk, main pulmonary arteries, lobar, segmental and proximal subsegmental branches to suggest pulmonary embolism. Distal subsegmental branches are subopt imally assessed. The pulmonary trunk measures 2.5 cm. Scattered arterial atherosclerotic calcifications. Dilated atria, please correlate with echocardiogra phic results. No pericardial effusion. Small sliding hiatal hernia. Enlarged bilateral hilar and medi astinal lymph nodes measuring up to 11 mm in the right hilum and 10 mm in the left hilum. Extensive bilateral pulmonary thick irregular areas of consolidation/infiltration, mainly seen in the mid and lower lung zones and mostly in peripheral distribution, associated with areas of groundglass opacities, which could represent extensive pulmonary infection/atypical infection however post infec tion fibrosis or underlying lesion cannot be excluded. This was not appreciated in the previous CT sc an. Right posterior basal 15 mm nodule, not appreciated previously. Patent trachea and main bronchi. No s izable pleural effusion. Previous left mastectomy. Thickened skin of right breast with tiny calcifica tion and surgical clips within the right breast, please correlate with mammography/breast ultrasound results. No gross aggressive bone lesion. IMPRESSION: No major or central pulmonary embolism. The described extensive bilateral pulmonary changes could represent extensive pulmonary infection inc luding atypical infection however post viral infection fibrotic changes, organizing pneumonia or unde rlying lesion cannot be excluded. Is there a history of recent Covid 19 infection?. Recommend clinica l correlation, pulmonology consultation and further workup. Follow-up CT scan in 2-3 months should be considered for reassessment. Enlarged hilar and mediastinal lymph nodes, possibly reactive, which ca n be also reassessed on the follow-up CT scan. Alternatively, PET scan assessment can be considered. Thickened skin of the right breast with right breast surgical clips and tiny calcifications, please c orrelate clinically and with breast ultrasound/mammography results. Other incidental findings as desc ribed above.
[2021-09-15] MEDS ORDERED: methylPREDNISolone SOD SUCCI 125 MG/2 ML VIAL IV STA (17:31)
[2021-09-15 19:13] LABS: Appearance,Urine Clear (Clear); Bilirubin,Urine Negative (Negative); Blood,Urine Negative (Negative); Color,Urine Yellow; Glucose,Urine (UA) 4+ (Negative); Leukocyte Esterase,Urine Negative (Negative); Nitrite,Urine Negative (Negative); PH, Urine 6.5 (5.0-8.0); Protein,Urine Trace (Negative); Urobilinogen,Urine <2.0 mg/dL (<2.0)
[2021-09-15 19:30] LABS: Specific Gravity,Urine >1.050 (1.001-1.035)
[2021-09-15 19:32] LABS: Ketones,Urine 2+ (Negative)
[2021-09-15] MEDS: IPRATROPIUM-ALBUTEROL 3 ML NEB INHALATION SCH (21:25)
[2021-09-15 21:27] LABS: Glucose,Whole Blood 479 mg/dL (75-99)
[2021-09-15] MEDS ORDERED: INSULIN ASPART (NovoLOG) 100 UNIT/ML VIAL SQ ONE (21:52)
[2021-09-15] MEDS ORDERED: AZITHROMYCIN 500 MG in SODIUM CHLORIDE 0.9% 250 ML IVPB STA (23:14)
--- NOTE | 2021-09-15 23:16 | P.HPIM ---
History of Present Illness H&P Date: 09/15/21 The patient is a 70-year-old female with a PMH of type II DM, hypertension, hyperlipidemia who presents to the emergency room with complaints of shortness of breath. Patient reports that her symptoms initially started 2 weeks ago with sinus drainage and congestion. She reports that she then developed a mild cough along with intermittent fevers with chills with temp of 100.4 Fahrenheit measured at home. She reports developing or shortness of breath over the past 1 week she has gradually progressed prompting her to come to the emergency room. She denies experiencing orthopnea, PND, chest discomfort, nausea, vomiting, diaphoresis, palpitations, dizziness. Denies lower extremity swelling or pain. Denies weakness, numbness, tingling, headaches. Chest CT in the emergency room revealed extensive bilateral infiltrates, possibly infection, with follow-up recommended. EKG revealed sinus rhythm at 98 bpm with intraventricular conduction delay. Laboratory evaluation was remarkable for platelet count of 616 (previously 233 on 05/30), sodium 139, chloride 96, glucose 265, magnesium 1.5, with influenza and coronavirus PCR testing negative. The patient's SpO2 was 81% on room air upon presentation. Review of systems: Pertinent positives and negatives as discussed in HPI, a complete review of systems was performed and all other systems are negative. Physical examination: General: non toxic, no distress, appears at stated age, overweight Derm: no unusual rashes/lesions no unusual ecchymoses, warm, dry Head: atraumatic, normocephalic, symmetric Eyes: EOMI, no lid lag, anicteric sclera, pupils equal round reactive to light ENT: Nose and ears atraumatic, no thrush, no pharyngeal erythema Neck: No thyromegaly, no cervical lymphadenopathy, trachea midline, supple Mouth: no lip lesion, mucus membranes moist Cardiovascular: S1S2 reg, no murmur, positive posterior tibial pulse bilateral, no edema, capillary refill less than 2 seconds Lungs: Bilateral scattered coarse breath sounds without wheezing, no accessory muscle use Abdominal: soft, nontender to palpation, no guarding, no appreciable organomegaly, normal bowel sounds Ext: no gross muscle atrophy, muscle strength 5 out of 5 in all 4 extremities grossly, no contractures, Neuro: CN II-XI grossly intact, light touch intact all 4 extremities, finger to nose within normal limits, Psych: Alert, oriented, appropriate affect Assessment/plan Acute hypoxic respiratory failure with bilateral pulmonary infiltrates, susp ected pneumonia -Start with azithromycin and ceftriaxone -Obtain pro-calcitonin levels -IV fluids -Hold off on IV steroids at this time -Pulmonary consult Thrombocytosis -Monitor for now -May require outpatient follow-up if do not improve with hydration Hyponatremia, hypochloremic -Suspected secondary to poor oral intake in setting of acute illness -Continue with IV fluids and monitor Hypomagnasemia -Replace and monitor Chronic conditions: Type II DM, hypertension, hyperlipidemia -Insulin sliding scale blood glucose monitoring -Check A1c -Continue the remaining home medications DVT prophylaxis -Heparin The patient is admitted with an anticipated greater than 2 midnight stay for evaluation of respiratory failure CODE STATUS: Full Code Discussed with: Patient Anticipated discharge date: 09/[address]: Home Past Medical History Past Medical History: Cancer, Diabetes Mellitus, Hyperlipidemia, Hypertension Additional Past Medical History / Comment(s): left breast cancer 2009 (mastectomy, chemo & radiation tx)., Right breast cancer ABoUT A YEAR AGO. (CHEMO RADIATION, LUMPCTOMY, DOING INFUSIONS IGHT NOW.) History of Any Multi-Drug Resistant Organisms: None Reported Past Surgical History: Breast Surgery Additional Past Surgical History / Comment(s): Left breast mastectomy, rt breast biopsy & lymph node bx jul 21 2020. LUmpctomy on right. Past Anesthesia/Blood Transfusion Reactions: No Reported Reaction, Motion Sickness Past Psychological History: No Psychological Hx Reported Smoking Status: Never smoker Past Alcohol Use History: None Reported Past Drug Use History: None Reported - Past Family History Mother Family Medical History: Diabetes Mellitus Additional Family Medical History / Comment(s): dememtia Medications and Allergies Home Medications Medication Instructions Recorded Confirmed Type Atorvastatin [Lipitor] 10 mg PO HS 07/15/20 09/15/21 History Labetalol [Trandate] 200 mg PO AC-BRKFST 07/15/20 09/15/21 History Losartan [Cozaar] 50 mg PO AC-BRKFST 07/15/20 09/15/21 History metFORMIN HCL [Glucophage] 1,000 mg PO AC-BID 07/15/20 09/15/21 History C,E,Zinc,Copper 11/Fqzly8e/Lut 1 cap PO QAM 08/19/20 09/15/21 History [Ocuvite Adult 50 Plus Softgel] Krill/Om-3/Dha/Epa/Phospho/Ast 1 cap PO DAILY 08/19/20 09/15/21 History [Megared [place]-3 Krill 350 mg] Empagliflozin [Jardiance] 25 mg PO W/LUNCH 11/28/20 09/15/21 History Pembrolizumab [Keytruda] 200 mg IV Q21D 09/15/21 09/15/21 History Allergies Allergy/AdvReac Type Severity Reaction Status Date / Time No Known Allergies Allergy Verified 09/15/21 14:15 Physical Exam Vitals: Vital Signs Temp Pulse Pulse Resp BP BP Pulse Ox 09/15/21 19:24 98 F 100 15 114/71 93 L 09/15/21 19:02 98.6 F 98 18 106/59 94 L 09/15/21 17:43 93 18 131/61 97 09/15/21 15:12 98.8 F 93 18 130/68 98 09/15/21 14:06 16 09/15/21 12:45 97.9 F 100 22 101/66 81 L Intake and Output 09/15/21 09/15/21 09/15/21 06:59 14:59 22:59 Other: Weight 73.482 kg 73.482 kg Results CBC & Chem 7: 09/15/21 15:02 09/15/21 15:02 Labs: Abnormal Lab Results - Last 24 Hours (Table) 09/15/21 09/15/21 09/15/21 Range/Units 15:02 15:02 15:02 Hgb 11.0 L (11.4-16.0) gm/dL Plt Count 616 H (150-450) k/uL Lymphocytes # 0.7 L (1.0-4.8) k/uL D-Dimer 1.05 H (<0.60) mg/L FEU Sodium 129 L (137-145) mmol/L Chloride 96 L (98-107) mmol/L Creatinine 0.39 L (0.52-1.04) mg/dL Glucose 365 H (74-99) mg/dL POC Glucose (mg/dL) (75-99) mg/dL Magnesium 1.5 L (1.6-2.3) mg/dL Albumin 3.3 L (3.5-5.0) g/dL Ur Specific [place] (1.001-1.035) Urine Protein (Negative) Urine Glucose (UA) (Negative) Urine Ketones (Negative) 09/15/21 09/15/21 Range/Units 18:30 21:25 Hgb (11.4-16.0) gm/dL Plt Count (150-450) k/uL Lymphocytes # (1.0-4.8) k/uL D-Dimer (<0.60) mg/L FEU Sodium (137-145) mmol/L Chloride (98-107) mmol/L Creatinine (0.52-1.04) mg/dL Glucose (74-99) mg/dL POC Glucose (mg/dL) 479 H (75-99) mg/dL Magnesium (1.6-2.3) mg/dL Albumin (3.5-5.0) g/dL Ur Specific [place] >1.050 H (1.001-1.035) Urine Protein Trace H (Negative) Urine Glucose (UA) 4+ H (Negative) Urine Ketones 2+ H (Negative) Thrombosis Risk Factor Assmnt - Choose All That Apply Any of the Below Risk Factors Present?: Yes Each Factor Represents 1 point: Obesity (BMI >25) Other Risk Factors: Yes Each Risk Factor Represents 2 Points: Age 61-74 years Other congenital or acquired thrombophilia - If yes, enter type in comment: No Thrombosis Risk Factor Assessment Total Risk Factor Score: 3 Thrombosis Risk Factor Assessment Level: Moderate Risk
[2021-09-15] MEDS: HEPARIN SODIUM,PORCINE/PF 5,000 UNIT/0.5 ML SYRINGE SQ SCH (23:42)
[2021-09-16] MEDS ORDERED: methylPREDNISolone SOD SUCCI 125 MG/2 ML VIAL IV SCH
[2021-09-16] MEDS: MAGNESIUM SULFATE-D5W PMX 1 GM in DEXTROSE/WATER 1 100ML.BAG IVPB SCH ×2 (00:37→01:38)
[2021-09-16] MEDS: SODIUM CHLORIDE 0.9% 1,000 ML IV SCH ×2 (00:37→13:43)
[2021-09-16] MEDS ORDERED: INSULIN DETEMIR (LEVEMIR) 100 UNIT/ML SYR SQ STA (04:48)
[2021-09-16 05:41] LABS: Glucose,Whole Blood 366 mg/dL (75-99)
[2021-09-16 06:54] LABS: Glucose,Whole Blood 386 mg/dL (75-99)
[2021-09-16] MEDS: HEPARIN SODIUM,PORCINE/PF 5,000 UNIT/0.5 ML SYRINGE SQ SCH ×3 (07:23→23:49)
[2021-09-16] MEDS: LABETALOL 200 MG TAB PO SCH (07:23)
[2021-09-16] MEDS: LOSARTAN 50 MG TAB PO SCH (07:23)
[2021-09-16] MEDS: INSULIN ASPART (NovoLOG) 100 UNIT/ML VIAL SQ SCH ×4 (07:24→20:40)
[2021-09-16 08:47] LABS: HCT 31.1 % (37.2-46.3); HGB 9.4 g/dL (12.0-15.0); MCH 26.8 pg (27.0-32.0); MCHC 30.2 g/dL (32.0-37.0); MCV 88.6 fL (80.0-97.0); Mean Platelet Volume 9.4 fL (9.5-12.2); NRBC Per 100 WBC 0 /100 WBCS (0.0-0.0); Platelet Count 498 X 10*3/uL (140-440); RBC 3.51 X 10*6/uL (4.10-5.20); RDW 13.1 % (11.5-14.5); WBC 3.35 X 10*3/uL (4.50-10.00)
[2021-09-16] MEDS: IPRATROPIUM-ALBUTEROL 3 ML NEB INHALATION SCH ×4 (08:56→20:11)
[2021-09-16 09:00] LABS: BUN/Creat Ratio 26.57 Ratio (12.00-20.00)
[2021-09-16 09:01] LABS: African American GFR (CKD) 114.7 (60.0-200.0); Anion Gap 16.3 mmol/L (10.00-18.00); Blood Urea Nitrogen 13.5 mg/dL (9.0-27.0); Calcium 8.1 mg/dL (8.7-10.3); Carbon Dioxide 19.1 mmol/L (20.0-27.5); Magnesium 2.4 mg/dL (1.5-2.4); Non-African American GFR(CKD) 98.9 (60.0-200.0); Potassium 4.9 mmol/L (3.5-5.5)
[2021-09-16 10:28] VITALS: BMI 29.6
[2021-09-16 11:23] LABS: Glucose,Whole Blood 416 mg/dL (75-99)
[2021-09-16] MEDS: methylPREDNISolone SOD SUCCI 125 MG/2 ML VIAL IV SCH ×3 (12:11→23:49)
--- NOTE | 2021-09-16 12:50 | P.CNPUL ---
History of Present Illness Consult date: 09/16/21 Reason for consult: dyspnea, COPD, pneumonia History of present illness: This is a 70-year-old here patient with known history of breast cancer. The patient has a remote history of left-sided breast cancer that was treated with mastectomy followed by chemotherapy and approximately year ago the patient had a right-sided breast cancer for which underwent lumpectomy, radiation therapy followed by immunotherapy and the patient was given Keytruda. She thinks she has received a total of 4 cycles of Keytruda. The patient is known to have phuong betes mellitus, hypertension and hyperlipidemia. She is a lifetime nonsmoker. Approximately 2 weeks ago, she started having progressive worsening shortness of breath and some mild cough and intermittent low-grade fever with a T-max of 100.4. No surgeries. Production. No hemoptysis. No pleurisy. Her condition progressively got worse and over the past 1 week she really got worse and she end up coming to the burst department yesterday. Note that the white cycle was nonelevated. The patient was afebrile in the emergency department. The patient had a white cell count of 6.8 with hemoglobin of 11. Her sodium level was at 129 with a mean of 13 and a creatinine of 0.39. The patient had a chest x-ray that was abnormal and showed left pulmonary infiltrates and following that the patient was given a computed tomography scan of the chest I suspected that there are a lot of chronic changes as the patient had some changes suggestive of bronchiectasis and fibrosis. However, I was able to retrieve an older chest x- ray from 2019 and back then the patient had no significant abnormalities. In summary, the current CAT scan of the chest showed no evidence of any pulmonary embolism. There was dilated atria potentially suggest pulmonary hypertension. The same time, the patient has enlarged bilateral hilar and mediastinal lymph nodes measuring up to 11 mm in size. There was extensive bilateral pulmonary thick irregular areas of consolidation/infiltration mainly seen in the mid in th e lower lung avila with a peripheral distribution. There is also areas of groundglass opacities. This could be a obviously infectious, atypical, viral yet possibility of drug-induced pneumonitis cannot be completely excluded. The patient denies having any previous history of smoking. No recurrent pneumonias. No reported aspiration. No travel history. No other sick contacts. She had COVID 19 infection last year and the patient has been vaccinated and she has a triple vaccination since. Her current cognitive testing is negative. Influenza A and B screen is negative. RSV screen is negative. Review of Systems Constitutional: Reports fatigue, Reports fever Eyes: denies as per HPI, denies blurred vision, denies bulging eye, denies decreased vision, denies diplopia, denies discharge, denies dry eye, denies irritation, denies itching, denies pain, denies photophobia, denies loss of peripheral vision, denies loss of vision, denies tunnel vision/blind spots Ears: deny: decreased hearing, ear discharge, earache, tinnitus Ears, nose, mouth and throat: Reports as per HPI Breasts: absent: as per HPI, change in shape, gynecomastia, masses, nipple discharge, pain, skin changes, swelling Cardiovascular: Reports decreased exercise tolerance, Reports dyspnea on exertion Respiratory: Reports congestion, Reports cough, Reports dyspnea Gastrointestinal: Reports as per HPI Genitourinary: Reports as per HPI Menstruation: Reports as per HPI Musculoskeletal: Reports as per HPI Musculoskeletal: absent: ankle pain, ankle stiffness, ankle swelling Integumentary: Reports as per HPI Neurological: Reports as per HPI Psychiatric: Reports as per HPI Endocrine: Reports as per HPI Hematologic/Lymphatic: Reports as per HPI Allergic/Immunologic: Reports as per HPI Past Medical History Past Medical History: Cancer, Diabetes Mellitus, Hyperlipidemia, Hypertension Additional Past Medical History / Comment(s): left breast cancer 2009 (mastectomy, chemo & radiation tx)., Right breast cancer 2020 (LUMPCTOMY, radiation and Keytruda x4), COVID 19 infection 2020 and the patient has been tripple vaccinated History of Any Multi-Drug Resistant Organisms: None Reported Past Surgical History: Breast Surgery Additional Past Surgical History / Comment(s): Left breast mastectomy, rt breast biopsy & lymph node bx jul 21 2020. LUmpctomy on right. Past Anesthesia/Blood Transfusion Reactions: No Reported Reaction, Motion Sickness Past Psychological History: No Psychological Hx Reported Smoking Status: Never smoker Past Alcohol Use History: None Reported Past Drug Use History: None Reported - Past Family History Mother Family Medical History: Diabetes Mellitus Additional Family Medical History / Comment(s): dememtia Medications and Allergies Home Medications Medication Instructions Recorded Confirmed Type Atorvastatin [Lipitor] 10 mg PO HS 07/15/20 09/15/21 History Labetalol [Trandate] 200 mg PO AC-BRKFST 07/15/20 09/15/21 History Losartan [Cozaar] 50 mg PO AC-BRKFST 07/15/20 09/15/21 History metFORMIN HCL [Glucophage] 1,000 mg PO AC-BID 07/15/20 09/15/21 History C,E,Zinc,Copper 11/Icgct4v/Lut 1 cap PO QAM 08/19/20 09/15/21 History [Ocuvite Adult 50 Plus Softgel] Krill/Om-3/Dha/Epa/Phospho/Ast 1 cap PO DAILY 08/19/20 09/15/21 History [[place]-3 Krill 350 mg] Empagliflozin [Jardiance] 25 mg PO W/LUNCH 11/28/20 09/15/21 History Pembrolizumab [Keytruda] 200 mg IV Q21D 09/15/21 09/15/21 History Allergies Allergy/AdvReac Type Severity Reaction Status Date / Time No Known Allergies Allergy Verified 09/15/21 14:15 Physical Exam Vitals: Vital Signs Temp Pulse Pulse Resp BP BP Pulse Ox 09/16/21 09:08 100 16 09/16/21 08:57 103 H 16 92 L 09/16/21 07:29 97.8 F 99 17 106/65 94 L 09/16/21 07:23 17 09/16/21 07:20 101 H 16 123/71 93 L 09/16/21 01:42 97.8 F 89 17 100/64 95 09/15/21 19:30 100 15 09/15/21 19:24 98 F 100 15 114/71 93 L 09/15/21 19:02 98.6 F 98 18 106/59 94 L 09/15/21 17:43 93 18 131/61 97 09/15/21 15:12 98.8 F 93 18 130/68 98 09/15/21 14:06 16 09/15/21 12:45 97.9 F 100 22 101/66 81 L Intake and Output 09/15/21 09/16/21 09/16/21 22:59 06:59 14:59 Intake Total 750 Balance 750 Intake: Intake, IV Titration 750 Amount Sodium Chloride 0.9% 1, 750 000 ml @ 75 mls/hr IV . [id number] [facility] Rx#:[id number] Other: Voiding Method Toilet # Voids 2 # Bowel Movements 0 Weight 73.482 kg Results - Laboratory Findings CBC and BMP: 09/16/21 05:33 09/16/21 05:33 PT/INR, D-dimer PT 11.0 sec (9.0-12.0) 09/15/21 15:02 INR 1.0 (<1.2) 09/15/21 15:02 D-Dimer 1.05 mg/L FEU (<0.60) H 09/15/21 15:02 Abnormal lab findings: Abnormal Labs 09/15/21 09/15/21 09/15/21 15:02 15:02 15:02 WBC RBC Hgb 11.0 L Hct MCH MCHC Plt Count 616 H MPV Lymphocytes # 0.7 L D-Dimer 1.05 H Sodium 129 L Chloride 96 L Carbon Dioxide Creatinine 0.39 L BUN/Creatinine Ratio Glucose 365 H POC Glucose (mg/dL) Calcium Magnesium 1.5 L Albumin 3.3 L Ur Specific [place] Urine Protein Urine Glucose (UA) Urine Ketones 09/15/21 09/15/21 09/16/21 18:30 21:25 05:33 WBC 3.35 L RBC 3.51 L Hgb 9.4 L Hct 31.1 L MCH 26.8 L MCHC 30.2 L Plt Count 498 H MPV 9.4 L Lymphocytes # D-Dimer Sodium Chloride Carbon Dioxide Creatinine BUN/Creatinine Ratio Glucose POC Glucose (mg/dL) 479 H Calcium Magnesium Albumin Ur Specific [place] >1.050 H Urine Protein Trace H Urine Glucose (UA) 4+ H Urine Ketones 2+ H 09/16/21 09/16/21 09/16/21 05:33 05:40 06:50 WBC RBC Hgb Hct MCH MCHC Plt Count MPV Lymphocytes # D-Dimer Sodium Chloride Carbon Dioxide 19.1 L Creatinine 0.5 L BUN/Creatinine Ratio 26.57 H Glucose 347 H POC Glucose (mg/dL) 366 H 386 H Calcium 8.1 L Magnesium Albumin Ur Specific [place] Urine Protein Urine Glucose (UA) Urine Ketones - Diagnostic Findings Chest x-ray: image reviewed CT scan - chest: image reviewed Assessment and Plan Plan: 1 acute bilateral pneumonia with extensive bilateral groundglass and areas of subpleural pulmonary consolidation and thickening bilaterally more so on the lower lobes. The exact etiology of his bilateral pulmonary infiltrates is not clear. Consider atypical infection/viral infections. Consider immunotherapy induced lung toxicity. The patient was taken Keytruda on outpatient basis. 2 acute hypoxic respiratory failure secondary to above 3 history of breast cancer postlumpectomy on the right followed by radiation therapy and immunotherapy 4 remote history of L breast cancer 5 mitral hyponatremia, hypochloremia make currently on normal saline 6 diabetes mellitus type 2 7 hypertension 8 hyperlipidemia Plan Check pro calcitonin level Check sputum Gram stain and culture Check blood cultures Check a Legionella urine antigen COVID 19 Testing is been negative by PCR Continue the current antibiotic coverage with Rocephin and add Zithromax Add IV Solu-Medrol for the possibility of immunotherapy induced lung toxicity and the patient was started on IV Solu-Medrol Monitor the blood sugar and control the blood sugar as the patient will be started on steroids May the bronchoscopy within 24-48 hours to rule out underlying infectious causes Diagnosis of immunotherapy induced lung toxicity needs to be highly considered in this patient. Suggest stopping Keytruda for now. Time with Patient: Greater than 30
--- NOTE | 2021-09-16 15:57 | P.PN ---
Subjective Progress Note Date: 09/16/21 Principal diagnosis: Shortness of breath Patient was seen and examined. No acute events overnight. Patient reports slight improvement in since admission. She reports a wet cough but unable to bring up sputum. Currently on 3 L nasal cannula. She denies any chest pain or palpitations. No nausea or vomiting. No fever or chills. Objective - Vital Signs Vital signs: Vital Signs Temp 98.2 F 09/16/21 14:00 Pulse 101 H 09/16/21 15:48 Resp 16 09/16/21 15:48 BP 112/64 09/16/21 14:00 Pulse Ox 95 09/16/21 14:00 Intake & Output 09/15/21 09/16/21 09/16/21 18:59 06:59 18:59 Intake Total 750 Balance 750 Weight 73.482 kg 73.482 kg 73.482 kg Intake: Intake, IV Titration 750 Amount Sodium Chloride 0.9% 1, 750 000 ml @ 75 mls/hr IV . [id number] [facility] Rx#:[id number] Other: Voiding Method Toilet # Voids 2 # Bowel Movements 0 - Exam General: [non toxic], [no distress], [appears at stated age] Derm: [warm], [dry] Head: [atraumatic], [normocephalic], [symmetric] Eyes: [EOMI], [no lid lag], [anicteric sclera] Mouth: [no lip lesion], [mucus membranes moist] Cardiovascular: [S1S2 reg], [no murmur], [positive DP pulse bilateral], Lungs: [Coarse BS bilateral with good air entry], [no rhonchi, no rales] , [no accessory muscle use] Abdominal: [soft], [ nontender to palpation], [no guarding], [no appreciable organomegaly] Ext: [no gross muscle atrophy], [no edema], [no contractures] Neuro: [no focal neuro deficits] Psych: [Alert], [oriented], [appropriate affect] - Labs CBC & Chem 7: 09/16/21 05:33 09/16/21 05:33 Labs: Abnormal Lab Results - Last 24 Hours (Table) 09/15/21 09/15/21 09/16/21 Range/Units 18:30 21:25 05:33 WBC (4.50-10.00) X 10*3/uL RBC (4.10-5.20) X 10*6/uL Hgb (12.0-15.0) g/dL Hct (37.2-46.3) % MCH (27.0-32.0) pg MCHC (32.0-37.0) g/dL Plt Count (140-440) X 10*3/uL MPV (9.5-12.2) fL Carbon Dioxide (20.0-27.5) mmol/L Creatinine (0.6-1.5) mg/dL BUN/Creatinine Ratio (12.00-20.00) Ratio Glucose (70-110) mg/dL POC Glucose (mg/dL) 479 H (75-99) mg/dL Hemoglobin A1c 9.7 H (0.0-6.0) % Calcium (8.7-10.3) mg/dL Ur Specific [place] >1.050 H (1.001-1.035) Urine Protein Trace H (Negative) Urine Glucose (UA) 4+ H (Negative) Urine Ketones 2+ H (Negative) 09/16/21 09/16/21 09/16/21 Range/Units 05:33 05:33 05:40 WBC 3.35 L (4.50-10.00) X 10*3/uL RBC 3.51 L (4.10-5.20) X 10*6/uL Hgb 9.4 L (12.0-15.0) g/dL Hct 31.1 L (37.2-46.3) % MCH 26.8 L (27.0-32.0) pg MCHC 30.2 L (32.0-37.0) g/dL Plt Count 498 H (140-440) X 10*3/uL MPV 9.4 L (9.5-12.2) fL Carbon Dioxide 19.1 L (20.0-27.5) mmol/L Creatinine 0.5 L (0.6-1.5) mg/dL BUN/Creatinine Ratio 26.57 H (12.00-20.00) Ratio Glucose 347 H (70-110) mg/dL POC Glucose (mg/dL) 366 H (75-99) mg/dL Hemoglobin A1c (0.0-6.0) % Calcium 8.1 L (8.7-10.3) mg/dL Ur Specific [place] (1.001-1.035) Urine Protein (Negative) Urine Glucose (UA) (Negative) Urine Ketones (Negative) 09/16/21 09/16/21 Range/Units 06:50 11:21 WBC (4.50-10.00) X 10*3/uL RBC (4.10-5.20) X 10*6/uL Hgb (12.0-15.0) g/dL Hct (37.2-46.3) % MCH (27.0-32.0) pg MCHC (32.0-37.0) g/dL Plt Count (140-440) X 10*3/uL MPV (9.5-12.2) fL Carbon Dioxide (20.0-27.5) mmol/L Creatinine (0.6-1.5) mg/dL BUN/Creatinine Ratio (12.00-20.00) Ratio Glucose (70-110) mg/dL POC Glucose (mg/dL) 386 H 416 H (75-99) mg/dL Hemoglobin A1c (0.0-6.0) % Calcium (8.7-10.3) mg/dL Ur Specific [place] (1.001-1.035) Urine Protein (Negative) Urine Glucose (UA) (Negative) Urine Ketones (Negative) Assessment and Plan Assessment: #Acute hypoxic respiratory failure with bilateral pulmonary infiltrates, s uspected pneumonia -Continue with azithromycin and ceftriaxone -Supplemental O2 to maintain O2 saturation > 92% -DuoNeb as needed for SOB/wheezing -Pro-calcitonin pending -IV fluids with normal sinus 75 mL per -Appreciate pulmonology recommendations: Start Solu-Medrol 60 mg IV every 6 hours along with possible bronchoscopy in 1-2 days, consider immunotherapy induced lung toxicity due to Keytruda, sputum culture/gram stain, urine Legionella #Diabetes mellitus with hyperglycemia -Worsened with steroids -A1c pending -Start Levemir 15 units QHS with Novolog 5 units TID. -Low dose sliding scale -Accuchecks 4 times a day with hypoglycemic precautions. #Thrombocytosis #Normocytic anemia -Monitor for now -May require outpatient follow-up if do not improve with hydration Chronic conditions: Hypertension, hyperlipidemia, history of breast cancer -Continue the remaining home medications Resolved: Hyponatremia, hypochloremia, hypomagnesemia DVT prophylaxis -Heparin The patient is admitted with an anticipated greater than 2 midnight stay for evaluation of respiratory failure CODE STATUS: Full Code Discussed with: Patient Anticipated discharge date: 09/[address]: Home
[2021-09-16 16:39] LABS: Glucose,Whole Blood 483 mg/dL (75-99)
[2021-09-16] MEDS ORDERED: INSULIN ASPART (NovoLOG) 100 UNIT/ML VIAL SQ SCH (17:30)
[2021-09-16 20:30] LABS: Glucose,Whole Blood 339 mg/dL (75-99)
[2021-09-16] MEDS: AZITHROMYCIN 500 MG in SODIUM CHLORIDE 0.9% 250 ML IVPB SCH (20:40)
[2021-09-16] MEDS: ATORVASTATIN 10 MG TAB PO SCH (20:40)
[2021-09-16] MEDS ORDERED: INSULIN DETEMIR (LEVEMIR) 100 UNIT/ML SYR SQ SCH (21:00)
[2021-09-17] MEDS: SODIUM CHLORIDE 0.9% 1,000 ML IV SCH ×2 (03:27→16:20)
[2021-09-17] MEDS: methylPREDNISolone SOD SUCCI 125 MG/2 ML VIAL IV SCH ×4 (05:25→23:46)
[2021-09-17 07:24] LABS: Glucose,Whole Blood 348 mg/dL (75-99)
[2021-09-17] MEDS: IPRATROPIUM-ALBUTEROL 3 ML NEB INHALATION SCH ×4 (07:59→20:32)
[2021-09-17] MEDS: INSULIN ASPART (NovoLOG) 100 UNIT/ML VIAL SQ SCH ×7 (08:54→21:09)
[2021-09-17] MEDS: LABETALOL 200 MG TAB PO SCH (08:55)
[2021-09-17] MEDS: LOSARTAN 50 MG TAB PO SCH (08:55)
[2021-09-17] MEDS: HEPARIN SODIUM,PORCINE/PF 5,000 UNIT/0.5 ML SYRINGE SQ SCH ×3 (08:55→23:47)
--- NOTE | 2021-09-17 11:21 | P.PN ---
Subjective Progress Note Date: 09/17/21 Principal diagnosis: Shortness of breath Patient was seen and examined. No acute events overnight. She reports a significant improvement in her cough. She continues to feel winded with exertion. Currently on 4 L nasal cannula. Able to take a shower this morning without difficulties. She denies any chest pain or palpitations. No nausea or vomiting. No fever or chills. Objective - Vital Signs Vital signs: Vital Signs Temp 98.0 F 09/17/21 07:58 Pulse 100 09/17/21 08:10 Resp 16 09/17/21 08:10 BP 113/66 09/17/21 07:58 Pulse Ox 92 L 09/17/21 08:01 Intake & Output 09/16/21 09/17/21 09/17/21 18:59 06:59 18:59 Intake Total 900 Balance 900 Weight 73.482 kg Intake: Intake, IV Titration 900 Amount Sodium Chloride 0.9% 1, 900 000 ml @ 75 mls/hr IV . [id number] [facility] Rx#:[id number] Other: Voiding Method Toilet # Voids 3 2 # Bowel Movements 1 - Exam General: [non toxic], [no distress], [appears at stated age] Derm: [warm], [dry] Head: [atraumatic], [normocephalic], [symmetric] Eyes: [EOMI], [no lid lag], [anicteric sclera] Mouth: [no lip lesion], [mucus membranes moist] Cardiovascular: [S1S2 reg], [no murmur], [positive DP pulse bilateral], Lungs: [Clear to auscultation bilaterally with good air entry], [no rhonchi, no rales] , [no accessory muscle use] Abdominal: [soft], [nontender to palpation], [no guarding], [no appreciable organomegaly] Ext: [no gross muscle atrophy], [no edema], [no contractures] Neuro: [no focal neuro deficits] Psych: [Alert], [oriented], [appropriate affect] - Labs CBC & Chem 7: 09/16/21 05:33 09/16/21 05:33 Labs: Abnormal Lab Results - Last 24 Hours (Table) 09/16/21 09/16/21 09/16/21 Range/Units 11:21 16:37 20:28 POC Glucose (mg/dL) 416 H 483 H 339 H (75-99) mg/dL 09/17/21 Range/Units 07:22 POC Glucose (mg/dL) 348 H (75-99) mg/dL Microbiology - Last 24 Hours (Table) 09/15/21 14:15 Blood Culture - Preliminary Blood No Growth after 24 hours 09/15/21 14:00 Blood Culture - Preliminary Blood No Growth after 24 hours Assessment and Plan Assessment: #Acute hypoxic respiratory failure with bilateral pulmonary infiltrates, suspected pneumonia -Continue with azithromycin and ceftriaxone -Supplemental O2 to maintain O2 saturation > 92% -DuoNeb as needed for SOB/wheezing -Pro-calcitonin and urine Legionella negative -IV fluids with normal sinus 75 mL per -Appreciate pulmonology recommendations: Start Solu-Medrol 60 mg IV every 6 hours along with possible bronchoscopy in 1-2 days, consider immunotherapy induced lung toxicity due to Keytruda, sputum culture/gram stain, urine Legionella #Diabetes mellitus with hyperglycemia -Worsened with steroids -A1c 9.7 -Increase Levemir to 30 units QHS with Novolog 10 units TID. -Low dose sliding scale -Accuchecks 4 times a day with hypoglycemic precautions. #Thrombocytosis #Normocytic anemia -Monitor for now -May require outpatient follow-up if do not improve with hydration Chronic conditions: Hypertension, hyperlipidemia, history of breast cancer -Continue the remaining home medications Resolved: Hyponatremia, hypochloremia, hypomagnesemia DVT prophylaxis -Heparin The patient is admitted with an anticipated greater than 2 midnight stay for evaluation of respiratory failure CODE STATUS: Full Code Discussed with: Patient Anticipated discharge date: 09/[address]: Home The case was discussed with second rigger Dr. Stevenson who recommends bronchoscopy during this admission.
[2021-09-17 11:24] LABS: Glucose,Whole Blood 439 mg/dL (75-99)
--- NOTE | 2021-09-17 12:43 | P.PN ---
Subjective Progress Note Date: 09/17/21 09/17/2021, the patient is being seen for a follow-up. The patient's, comfortable at this point in time. No new events or any new symptoms since yesterday. She started expressing shortness of breath with mobility. She remains on examination Rocephin and Zithromax. She is on IV Solu-Medrol. This has resulted in to some elevation of blood sugar reported reason the patient will start on Levemir insulin 30 units in combination with 10 units of NovoLog with meals and a sliding scale coverage and the blood sugars under much better control for now. As mentioned earlier, I did suspect immunotherapy related pneumonia toxicity and the patient's pro calcitonin level has been low at 0.08. The genitourinary antigen came back negative. COVID 19 testing was negative. Influenza screen was negative. RSV screen was negative. Possibility of bronchoscopy needs to be considered to rule out infection. Overall clinical picture is consistent with immunotherapy induced lung injury. For now, the patient is on 3 L of oxygen by nasal cannula and the patient's pulse ox is on 93%. No interval worsening shortness of breath. In fact, she feels slightly improved compared to yesterday. Objective - Vital Signs Vital signs: Vital Signs Temp 98.0 F 09/17/21 07:58 Pulse 103 H 09/17/21 12:09 Resp 16 09/17/21 12:09 BP 113/66 09/17/21 07:58 Pulse Ox 92 L 09/17/21 08:01 Intake & Output 09/16/21 09/17/21 09/17/21 18:59 06:59 18:59 Intake Total 900 Balance 900 Weight 73.482 kg Intake: Intake, IV Titration 900 Amount Sodium Chloride 0.9% 1, 900 000 ml @ 75 mls/hr IV . [id number] [facility] Rx#:[id number] Other: Voiding Method Toilet # Voids 3 2 # Bowel Movements 1 - Exam Gen. appearance the patient is calm and comfortable likely distress, on 3 L of O2 by nasal cannula Head exam was generally normal. There was no scleral icterus or corneal arcus. Mucous membranes were moist. Neck was supple and without jugular venous distension, thyromegaly, or carotid bruits. Carotids were easily palpable bilaterally. There was no adenopathy. Lungs thousand diminished and the patient has crackles in the mid and lower lung avila bilaterally Cardiac exam revealed the PMI to be normally situated and sized. The rhythm was regular and no extrasystoles were noted during several minutes of auscultation. The first and second heart sounds were normal and physiologic splitting of the second heart sound was noted. There were no murmurs, rubs, clicks, or gallops. Abdominal exam revealed normal bowel sounds. The abdomen was soft, non-tender, and without masses, organomegaly, or appreciable enlargement of the abdominal a chas. Examination of the extremities revealed easily palpable radial, femoral and pedal pulses. There was no cyanosis, clubbing or edema. Minimal skin - Labs CBC & Chem 7: 09/16/21 05:33 09/16/21 05:33 Labs: Abnormal Lab Results - Last 24 Hours (Table) 09/16/21 09/16/21 09/17/21 Range/Units 16:37 20:28 07:22 POC Glucose (mg/dL) 483 H 339 H 348 H (75-99) mg/dL 09/17/21 Range/Units 11:22 POC Glucose (mg/dL) 439 H (75-99) mg/dL Microbiology - Last 24 Hours (Table) 09/15/21 14:15 Blood Culture - Preliminary Blood No Growth after 24 hours 09/15/21 14:00 Blood Culture - Preliminary Blood No Growth after 24 hours Assessment and Plan Plan: 1 acute bilateral pneumonia with extensive bilateral groundglass and areas of subpleural pulmonary consolidation and thickening bilaterally more so on the lower lobes. The exact etiology of his bilateral pulmonary infiltrates is not clear. Consider atypical infection/viral infections. Consider immunotherapy induced lung toxicity. The patient was taken Keytruda on outpatient basis. 2 acute hypoxic respiratory failure secondary to above 3 history of breast cancer postlumpectomy on the right followed by radiation therapy and immunotherapy 4 remote history of L breast cancer 5 mitral hyponatremia, hypochloremia make currently on normal saline 6 diabetes mellitus type 2 7 hypertension 8 hyperlipidemia Plan Check pro calcitonin level was low at 0.08 Check sputum Gram stain and culture still pending as the patient is unable to produce any sputum Check blood cultures are negative Check a Legionella urine antigen are negative COVID 19 Testing is been negative by PCR Continue the current antibiotic coverage with Rocephin and add Zithromax Continue IV Solu-Medrol for the possibility of immunotherapy induced lung toxicity and the patient was started on IV Solu-Medrol Repeat chest x-ray in the morning Monitor the blood sugar and control the blood sugar as the patient will be started on steroids May the bronchoscopy within 24-48 hours to rule out underlying infectious causes Diagnosis of immunotherapy induced lung toxicity needs to be highly considered in this patient. Suggest stopping Keytruda for now. Clinically stable
[2021-09-17 16:40] LABS: Glucose,Whole Blood 306 mg/dL (75-99)
[2021-09-17 20:54] LABS: Glucose,Whole Blood 336 mg/dL (75-99)
[2021-09-17] MEDS: INSULIN DETEMIR (LEVEMIR) 100 UNIT/ML SYR SQ SCH (21:09)
[2021-09-17] MEDS: AZITHROMYCIN 500 MG in SODIUM CHLORIDE 0.9% 250 ML IVPB SCH (21:09)
[2021-09-17] MEDS: ATORVASTATIN 10 MG TAB PO SCH (21:09)
[2021-09-18] MEDS: methylPREDNISolone SOD SUCCI 125 MG/2 ML VIAL IV SCH ×4 (05:20→23:43)
[2021-09-18 06:49] LABS: Glucose,Whole Blood 325 mg/dL (75-99)
--- NOTE | 2021-09-18 07:09 | XR ---
EXAMINATION TYPE: XR chest 2V DATE OF EXAM: 09/18/2021 COMPARISON: 09/15/2021 HISTORY: Shortness of breath TECHNIQUE: Frontal and lateral views of the chest are obtained. FINDINGS: Scattered senescent parenchymal changes noted. Perihilar and basilar coarse infiltrates persist unchanged. Heart size is stable. Mediastinal structures are stable and grossly unremarkable. No evidence for hilar prominence. Degenerative changes dorsal spine. IMPRESSION: 1. Perihilar and basilar coarse infiltrates persist unchanged.
[2021-09-18] MEDS: SODIUM CHLORIDE 0.9% 1,000 ML IV SCH ×2 (07:45→16:02)
[2021-09-18] MEDS: LOSARTAN 50 MG TAB PO SCH (07:46)
[2021-09-18] MEDS: LABETALOL 200 MG TAB PO SCH (07:46)
[2021-09-18] MEDS: INSULIN ASPART (NovoLOG) 100 UNIT/ML VIAL SQ SCH ×7 (07:46→20:45)
[2021-09-18] MEDS: HEPARIN SODIUM,PORCINE/PF 5,000 UNIT/0.5 ML SYRINGE SQ SCH ×3 (07:46→23:44)
[2021-09-18] MEDS: IPRATROPIUM-ALBUTEROL 3 ML NEB INHALATION SCH ×4 (07:59→20:26)
[2021-09-18 11:09] LABS: Glucose,Whole Blood 376 mg/dL (75-99)
--- NOTE | 2021-09-18 15:46 | P.PN ---
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 09/17/2021, the patient is being seen for a follow-up. The patient's, comf ortable at this point in time. No new events or any new symptoms since yesterday. She started expressing shortness of breath with mobility. She remains on examination Rocephin and Zithromax. She is on IV Solu-Medrol. This has resulted in to some elevation of blood sugar reported reason the patient will start on Levemir insulin 30 units in combination with 10 units of NovoLog with meals and a sliding scale coverage and the blood sugars under much better control for now. As mentioned earlier, I did suspect immunotherapy related pneumonia toxicity and the patient's pro calcitonin level has been low at 0.08. The genitourinary antigen came back negative. COVID 19 testing was negative. Influenza screen was negative. RSV screen was negative. Possibility of bronchoscopy needs to be considered to rule out infection. Overall clinical picture is consistent with immunotherapy induced lung injury. For now, the patient is on 3 L of oxygen by nasal cannula and the patient's pulse ox is on 93%. No interval worsening shortness of breath. In fact, she feels slightly improved compared to yesterday. Reevaluated today on 09/18/21, patient is on 4 L nasal cannula, and her O2 saturations 99%. Patient feels much better, remains on steroids, she is also on antibiotics empirically. She has very low pro calcitonin level of 0.08, and we believe that her pneumonia is most likely secondary or induced by immunotherapy. Clinically the patient is feeling better, at this point I don't see any need for bronchoscopy or biopsy of her lungs. Will continue present treatment plan, and continue to follow. Repeat chest x-ray in the next 24-48 hours Objective - Vital Signs Vital signs: Vital Signs Temp 97.9 F 09/18/21 14:06 Pulse 91 09/18/21 15:38 Resp 18 09/18/21 14:06 BP 118/70 09/18/21 14:06 Pulse Ox 99 09/18/21 15:38 Intake & Output 09/17/21 09/18/21 09/18/21 18:59 06:59 18:59 Other: Voiding Method Toilet Toilet Toilet # Voids 5 3 # Bowel Movements 1 - Exam Physical Exam: Revealed 70-year-old female in no distress. Head: Atraumatic, normocephalic. HEENT:[Neck is supple.] [No neck masses.] [No thyromegaly.] [No JVD.] Chest: [Clear throughout, no crackles, no rhonchi, no wheezes.] Cardiac Exam: [Normal S1 and S2, no S3 gallop, no murmur.] Abdomen: [Soft, nontender, no megaly, no rebound, no guarding, normal bowel sounds.] Extremities: [No clubbing, no edema, no cyanosis.] Neurological Exam: [No focal neurologic deficit.] Alert oriented 3. Psychiatric: Normal mood, affect and normal mental status examination. Skin: No rashes - Labs CBC & Chem 7: 09/16/21 05:33 09/16/21 05:33 Labs: Abnormal Lab Results - Last 24 Hours (Table) 09/17/21 09/17/21 09/18/21 Range/Units 16:38 20:52 06:47 POC Glucose (mg/dL) 306 H 336 H 325 H (75-99) mg/dL 09/18/21 Range/Units 11:07 POC Glucose (mg/dL) 376 H (75-99) mg/dL Microbiology - Last 24 Hours (Table) 09/15/21 14:15 Blood Culture - Preliminary Blood No Growth after 48 hours 09/15/21 14:00 Blood Culture - Preliminary Blood No Growth after 48 hours Assessment and Plan Assessment: Acute hypoxic respiratory failure secondary to pneumonia, this is most likely induced by immunotherapy/keytruda History of breast cancer. History of type 2 diabetes. Benign essential hypertension. Dyslipidemia. Recommendation: Continue present supportive care measures Continue oxygen and titrate accordingly Continue empiric antibiotics for now. No need for bronchoscopy at this point since the patient is clinically getting better. Continue steroids. We'll continue to follow and we'll continue to hold keytruda Time with Patient: Less than 30
--- NOTE | 2021-09-18 16:05 | P.PN ---
Subjective Progress Note Date: 09/18/21 No significant events overnight, patient continues to improve daily. Patient currently on 4 L of oxygen, saturation has been in the high 90s. She is complaining of mild respiratory distress with exertion. She denies any chest pain, no palpitations, no dizziness or lightheadedness. She remains on steroids and antibiotics, no plan for bronchoscopy per pulmonology at this point. Objective - Vital Signs Vital signs: Vital Signs Temp 97.9 F 09/18/21 14:06 Pulse 92 09/18/21 15:49 Resp 18 09/18/21 14:06 BP 118/70 09/18/21 14:06 Pulse Ox 99 09/18/21 15:38 Intake & Output 09/17/21 09/18/21 09/18/21 18:59 06:59 18:59 Other: Voiding Method Toilet Toilet Toilet # Voids 5 3 # Bowel Movements 1 - Constitutional General appearance: Present: average body habitus, cooperative - EENT Eyes: Present: EOMI, PERRLA - Neck Neck: Present: normal ROM. Absent: lymphadenopathy - Respiratory Respiratory: bilateral: CTA, negative: rales, rhonchi, wheezing - Cardiovascular Rhythm: regular Heart sounds: normal: S1, S2 Abnormal Heart Sounds: Absent: systolic murmur, diastolic murmur - Gastrointestinal General gastrointestinal: Present: normal bowel sounds. Absent: tenderness - Neurologic Neurologic: Present: CNII-XII intact, focal deficits - Musculoskeletal Musculoskeletal: Present: generalized weakness - Psychiatric Psychiatric: Present: A&O x's 3, appropriate affect, intact judgment & insight - Labs CBC & Chem 7: 09/16/21 05:33 09/16/21 05:33 Labs: Abnormal Lab Results - Last 24 Hours (Table) 09/17/21 09/17/21 09/18/21 Range/Units 16:38 20:52 06:47 POC Glucose (mg/dL) 306 H 336 H 325 H (75-99) mg/dL 09/18/21 Range/Units 11:07 POC Glucose (mg/dL) 376 H (75-99) mg/dL Microbiology - Last 24 Hours (Table) 09/15/21 14:15 Blood Culture - Preliminary Blood No Growth after 48 hours 09/15/21 14:00 Blood Culture - Preliminary Blood No Growth after 48 hours Assessment and Plan Plan: #Acute hypoxic respiratory failure -Improving -Suspect secondary to immunotherapy induced lung injury versus less likely pneumonia -Pro-calcitonin has been normal -Continue IV steroids immunotherapy induced lung injury -Appreciate for the recognitions from pulmonology -No plans for bronchoscopy at this time -Cultures have been negative #Diabetes mellitus with hyperglycemia -Worsened with steroids -A1c 9.7 -Increase Levemir to 30 units QHS with Novolog 10 units TID. -Low dose sliding scale -Accuchecks 4 times a day with hypoglycemic precautions. #Thrombocytosis #Normocytic anemia -Monitor for now -May require outpatient follow-up if do not improve with hydration Chronic conditions: Hypertension, hyperlipidemia, history of breast cancer -Continue home medications Resolved: Hyponatremia, hypochloremia, hypomagnesemia DVT prophylaxis -Heparin Expected discharge home in 2 days Time with Patient: Less than 30
[2021-09-18 16:13] LABS: Glucose,Whole Blood 450 mg/dL (75-99)
[2021-09-18 20:26] LABS: Glucose,Whole Blood 399 mg/dL (75-99)
[2021-09-18] MEDS: AZITHROMYCIN 500 MG in SODIUM CHLORIDE 0.9% 250 ML IVPB SCH (20:46)
[2021-09-18] MEDS: INSULIN DETEMIR (LEVEMIR) 100 UNIT/ML SYR SQ SCH (20:46)
[2021-09-18] MEDS: ATORVASTATIN 10 MG TAB PO SCH (20:46)
[2021-09-19 01:44] LABS: Glucose,Whole Blood 286 mg/dL (75-99)
[2021-09-19] MEDS: methylPREDNISolone SOD SUCCI 125 MG/2 ML VIAL IV SCH ×3 (05:51→17:05)
[2021-09-19 06:44] LABS: Glucose,Whole Blood 215 mg/dL (75-99)
[2021-09-19] MEDS: LABETALOL 200 MG TAB PO SCH (07:21)
[2021-09-19] MEDS: LOSARTAN 50 MG TAB PO SCH (07:21)
[2021-09-19] MEDS: HEPARIN SODIUM,PORCINE/PF 5,000 UNIT/0.5 ML SYRINGE SQ SCH ×2 (07:21→15:36)
[2021-09-19] MEDS: INSULIN ASPART (NovoLOG) 100 UNIT/ML VIAL SQ SCH ×7 (07:21→21:45)
[2021-09-19] MEDS: SODIUM CHLORIDE 0.9% 1,000 ML IV SCH ×2 (09:04→21:49)
[2021-09-19 09:09] LABS: Basophils # (A) 0 X 10*3/uL (0.00-0.10); Basophils % (A) 0 %; Eosinophils # (A) 0 X 10*3/uL (0.04-0.35); Eosinophils % (A) 0 %; HCT 31.9 % (37.2-46.3); HGB 9.6 g/dL (12.0-15.0); Immature Grans, Automated 0.7 %; Lymphocytes # (A) 0.76 X 10*3/uL (0.90-5.00); Lymphocytes % (A) 8.6 %; MCH 26.8 pg (27.0-32.0); MCHC 30.1 g/dL (32.0-37.0); MCV 89.1 fL (80.0-97.0); Mean Platelet Volume 9.7 fL (9.5-12.2); Monocytes % (A) 3.4 %; NRBC Per 100 WBC 0 /100 WBCS (0.0-0.0); Neutrophils # (A) 7.72 X 10*3/uL (1.80-7.70); Neutrophils % (A) 87.3 %; Platelet Count 451 X 10*3/uL (140-440); RBC 3.58 X 10*6/uL (4.10-5.20); RDW 13.2 % (11.5-14.5); WBC 8.84 X 10*3/uL (4.50-10.00)
[2021-09-19 09:18] LABS: ALT 14 U/L (8-44); AST 7 U/L (13-35); African American GFR (CKD) 115.3 (60.0-200.0); Albumin 2.9 g/dL (3.8-4.9); Albumin/Globulin Ratio 1.16 (1.60-3.17); Alkaline Phosphatase 59 U/L (41-126); Blood Urea Nitrogen 15.3 mg/dL (9.0-27.0); Calcium 8.4 mg/dL (8.7-10.3); Carbon Dioxide 21.1 mmol/L (20.0-27.5); Chloride 103 mmol/L (96-109); Globulin 2.5 g/dL (1.6-3.3); Glucose 229 mg/dL (70-110); Non-African American GFR(CKD) 99.4 (60.0-200.0); Potassium 4.1 mmol/L (3.5-5.5); Sodium 137 mmol/L (135-145); Total Bilirubin <0.15 mg/dL (0.30-1.20); Total Protein 5.4 g/dL (6.2-8.2)
[2021-09-19] MEDS: IPRATROPIUM-ALBUTEROL 3 ML NEB INHALATION SCH ×4 (09:28→19:30)
[2021-09-19 11:08] LABS: Glucose,Whole Blood 183 mg/dL (75-99)
--- NOTE | 2021-09-19 11:42 | P.PN ---
Subjective Progress Note Date: 09/19/21 09/17/2021, the patient is being seen for a follow-up. The patient's, comfortable at this point in time. No new events or any new symptoms since yesterday. She started expressing shortness of breath with mobility. She remains on examination Rocephin and Zithromax. She is on IV Solu-Medrol. This has resulted in to some elevation of blood sugar reported reason the patient will start on Levemir insulin 30 units in combination with 10 units of NovoLog with meals and a sliding scale coverage and the blood sugars under much better control for now. As mentioned earlier, I did suspect immunotherapy related pneumonia toxicity and the patient's pro calcitonin level has been low at 0.08. The genitourinary antigen came back negative. COVID 19 testing was negative. Influenza screen was negative. RSV screen was negative. Possibility of bronchoscopy needs to be considered to rule out infection. Overall clinical picture is consistent with immunotherapy induced lung injury. For now, the patient is on 3 L of oxygen by nasal cannula and the patient's pulse ox is on 93%. No interval worsening shortness of breath. In fact, she feels slightly improved compared to yesterday. Reevaluated today on 09/18/21, patient is on 4 L nasal cannula, and her O2 saturations 99%. Patient feels much better, remains on steroids, she is also on antibiotics empirically. She has very low pro calcitonin level of 0.08, and we believe that her pneumonia is most likely secondary or induced by immunotherapy. Clinically the patient is feeling better, at this point I don't see any need for bronchoscopy or biopsy of her lungs. Will continue present treatment plan, and continue to follow. Repeat chest x-ray in the next 24-48 hours. On 09/19/2021 patient seen in follow-up on medical surgical floor, she is resting comfortably in bed, she is currently on is of oxygen pulse ox is 94%, she's been afebrile, hemodynamically she is been stable, blood pressure has been stable, she is breathing quite comfortably, occasional cough, today she was able to bring up small amount of yellowish colored phlegm. No fever or chills, no hemoptysis. He is on high-dose IV steroids 60 mg every 6 hours of Solu-Medrol. She remains on empiric antibiotics in the form of Rocephin. She continues on breathing treatments. Lung sounds reveal some coarse crackles bilaterally, her last chest x-ray yesterday for 2021 showed perihilar and basilar coarse infiltrates that look unchanged compared to previous chest x-ray. Objective - Vital Signs Vital signs: Vital Signs Temp 98.4 F 09/19/21 08:13 Pulse 88 09/19/21 09:39 Resp 18 09/19/21 09:08 BP 117/62 09/19/21 08:13 Pulse Ox 94 L 09/19/21 08:13 Intake & Output 09/18/21 09/19/21 09/19/21 18:59 06:59 18:59 Intake Total 960 660 Balance 960 660 Intake: IV 360 Sodium Chloride 0.9% 1, 360 000 ml @ 75 mls/hr IV . [id number] [facility] Rx#:[id number] Intake, IV Titration 660 Amount Azithromycin 500 mg In 250 Sodium Chloride 0.9% 250 ml @ 250 mls/hr IVPB HS [facility] Rx#:[id number] Sodium Chloride 0.9% 1, 360 000 ml @ 75 mls/hr IV . [id number] [facility] Rx#:[id number] cefTRIAXone 1 gm In 50 Sodium Chloride 0.9% 50 ml @ 100 mls/hr IVPB Q24H [facility] Rx#:[id number] Oral 600 Other: Voiding Method Toilet Toilet - Exam GENERAL EXAM: Alert, very pleasant, 62-year-old white female, 3 L of oxygen with a pulse ox of 94% comfortable in no apparent distress. HEAD: Normocephalic/atraumatic. EYES: Normal reaction of pupils, equal size. Conjunctiva pink, sclera white. NOSE: Clear with pink turbinates. THROAT: No erythema or exudates. NECK: No masses, no JVD, no thyroid enlargement, no adenopathy. CHEST: No chest wall deformity. Symmetrical expansion. LUNGS: Equal air entry with bibasilar crackles CVS: Regular rate and rhythm, normal S1 and S2, no gallops, no murmurs, no rubs ABDOMEN: Soft, nontender. No hepatosplenomegaly, normal bowel sounds, no guarding or rigidity. EXTREMITIES: No clubbing, chronic swelling in the left upper extremity related to history of lymph node removal in the left arm, no cyanosis, 2+ pulses and upper and lower extremities. MUSCULOSKELETAL: Muscle strength and tone normal. SPINE: No scoliosis or deformity SKIN: No rashes CENTRAL NERVOUS SYSTEM: Alert and oriented -3. No focal deficits, tone is normal in all 4 extremities. PSYCHIATRIC: Alert and oriented -3. Appropriate affect. Intact judgment and insight. - Labs CBC & Chem 7: 09/19/21 05:14 09/19/21 05:14 Labs: Abnormal Lab Results - Last 24 Hours (Table) 09/18/21 09/18/21 09/19/21 Range/Units 16:10 20:24 01:41 RBC (4.10-5.20) X 10*6/uL Hgb (12.0-15.0) g/dL Hct (37.2-46.3) % MCH (27.0-32.0) pg MCHC (32.0-37.0) g/dL Plt Count (140-440) X 10*3/uL Immature Gran # (0.00-0.04) X 10*3/uL Neutrophils # (1.80-7.70) X 10*3/uL Lymphocytes # (0.90-5.00) X 10*3/uL Eosinophils # (0.04-0.35) X 10*3/uL Creatinine (0.6-1.5) mg/dL BUN/Creatinine Ratio (12.00-20.00) Ratio Glucose (70-110) mg/dL POC Glucose (mg/dL) 450 H 399 H 286 H (75-99) mg/dL Calcium (8.7-10.3) mg/dL Total Bilirubin (0.30-1.20) mg/dL AST (13-35) U/L Total Protein (6.2-8.2) g/dL Albumin (3.8-4.9) g/dL Albumin/Globulin Ratio (1.60-3.17) g/dL 09/19/21 09/19/21 09/19/21 Range/Units 05:14 05:14 06:42 RBC 3.58 L (4.10-5.20) X 10*6/uL Hgb 9.6 L (12.0-15.0) g/dL Hct 31.9 L (37.2-46.3) % MCH 26.8 L (27.0-32.0) pg MCHC 30.1 L (32.0-37.0) g/dL Plt Count 451 H (140-440) X 10*3/uL Immature Gran # 0.06 H (0.00-0.04) X 10*3/uL Neutrophils # 7.72 H (1.80-7.70) X 10*3/uL Lymphocytes # 0.76 L (0.90-5.00) X 10*3/uL Eosinophils # 0 L (0.04-0.35) X 10*3/uL Creatinine 0.5 L (0.6-1.5) mg/dL BUN/Creatinine Ratio 30.60 H (12.00-20.00) Ratio Glucose 229 H (70-110) mg/dL POC Glucose (mg/dL) 215 H (75-99) mg/dL Calcium 8.4 L (8.7-10.3) mg/dL Total Bilirubin <0.15 L (0.30-1.20) mg/dL AST 7 L (13-35) U/L Total Protein 5.4 L (6.2-8.2) g/dL Albumin 2.9 L (3.8-4.9) g/dL Albumin/Globulin Ratio 1.16 L (1.60-3.17) g/dL 09/19/21 Range/Units 11:06 RBC (4.10-5.20) X 10*6/uL Hgb (12.0-15.0) g/dL Hct (37.2-46.3) % MCH (27.0-32.0) pg MCHC (32.0-37.0) g/dL Plt Count (140-440) X 10*3/uL Immature Gran # (0.00-0.04) X 10*3/uL Neutrophils # (1.80-7.70) X 10*3/uL Lymphocytes # (0.90-5.00) X 10*3/uL Eosinophils # (0.04-0.35) X 10*3/uL Creatinine (0.6-1.5) mg/dL BUN/Creatinine Ratio (12.00-20.00) Ratio Glucose (70-110) mg/dL POC Glucose (mg/dL) 183 H (75-99) mg/dL Calcium (8.7-10.3) mg/dL Total Bilirubin (0.30-1.20) mg/dL AST (13-35) U/L Total Protein (6.2-8.2) g/dL Albumin (3.8-4.9) g/dL Albumin/Globulin Ratio (1.60-3.17) g/dL Microbiology - Last 24 Hours (Table) 09/15/21 14:00 Blood Culture - Preliminary Blood No Growth after 72 hours 09/15/21 14:15 Blood Culture - Preliminary Blood No Growth after 72 hours Assessment and Plan Plan: Assessment: #1. Acute hypoxic respiratory failure secondary to possibility of immunotherapy induced pneumonitis. Possibility of pneumonia was considered less likely nevertheless patient is empirically covered with Rocephin #2. History of breast cancer postlumpectomy on the right followed by radiation therapy and immunotherapy #3. History of diabetes mellitus type 2 #4. Benign essential hypertension #5. Dyslipidemia Plan: Continue IV steroids Continue empiric antibiotics and breathing treatments Clinical patient is feeling better, vital signs are stable, no fever We will obtain chest x-ray in the next 48 hours Continue following her clinical course No need for bronchoscopy at this time, Sharif remains on hold I have personally seen and examined the patient, performed the documentation and the assessment and plan as written. Number of minutes spent on the visit: [10] Time with Patient: Less than 30
[2021-09-19 16:29] LABS: Glucose,Whole Blood 467 mg/dL (75-99)
--- NOTE | 2021-09-19 18:10 | P.PN ---
Subjective Progress Note Date: 09/19/21 (1300) Principal diagnosis: shortness of breath Patient is a 70-year-old female with a history of diabetes mellitus type 2, hypertension, dyslipidemia, and breast cancer currently on Keytruda who presented with shortness of breath. In the ER she underwent an extensive evaluation. CT chest revealed extensive bilateral infiltrates with possible infection. Laboratory analysis showed a platelet count of 616, influenza and COVID-19 testing was negative. Patient was found to be hyperglycemic with a glucose of 265, magnesium 1.5, and room air O2 sat of 81%. She was subsequently admitted for further monitoring. Pulmonary was consulted and the patient was started on Rocephin and Zithromax. She was then started on IV steroids. She completed 3 days of Zithromax was continued on Rocephin. She continues to well throughout her hospital stay but did develop some significant hyperglycemia secondary to steroids. Her pro-calcitonin came back normal at 0.08. Legionella and RSV testing was negative. Patient seen and examined at bedside. She states her breathing is much better. She is feeling back to normal. Denies any nausea, vomiting. Eating and drinking well. General: non toxic, no distress, appears at stated age Derm: warm, dry Head: atraumatic, normocephalic, symmetric Eyes: EOMI, no lid lag, anicteric sclera Mouth: no lip lesion, mucus membranes moist Cardiovascular: S1S2 reg, no murmur, positive posterior tibial pulse bilateral, Lungs: Rhonchi bilateral, no rhonchi, no rales , no accessory muscle use Abdominal: soft, nontender to palpation, no guarding, no appreciable organomegaly Ext: no gross muscle atrophy, no edema, no contractures Neuro: CN II-XI grossly intact, no focal neuro deficits Psych: Alert, oriented, appropriate affect Assessment/plan: 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 Objective - Vital Signs Vital signs: Vital Signs Temp 98.1 F 09/19/21 14:01 Pulse 87 09/19/21 16:12 Resp 17 09/19/21 14:01 BP 117/69 09/19/21 14:01 Pulse Ox 97 09/19/21 14:01 Intake & Output 09/18/21 09/19/21 09/19/21 18:59 06:59 18:59 Intake Total 979 036 5114 Balance 549 851 0373 Intake: IV 360 360 Sodium Chloride 0.9% 1, 360 360 000 ml @ 75 mls/hr IV . [id number] [facility] Rx#:[id number] Intake, IV Titration 660 Amount Azithromycin 500 mg In 250 Sodium Chloride 0.9% 250 ml @ 250 mls/hr IVPB HS [facility] Rx#:[id number] Sodium Chloride 0.9% 1, 360 000 ml @ 75 mls/hr IV . [id number] [facility] Rx#:[id number] cefTRIAXone 1 gm In 50 Sodium Chloride 0.9% 50 ml @ 100 mls/hr IVPB Q24H [facility] Rx#:[id number] Oral 600 960 Other: Voiding Method Toilet Toilet - Labs CBC & Chem 7: 09/19/21 05:14 09/19/21 05:14 Labs: Abnormal Lab Results - Last 24 Hours (Table) 09/18/21 09/19/21 09/19/21 Range/Units 20:24 01:41 05:14 RBC 3.58 L (4.10-5.20) X 10*6/uL Hgb 9.6 L (12.0-15.0) g/dL Hct 31.9 L (37.2-46.3) % MCH 26.8 L (27.0-32.0) pg MCHC 30.1 L (32.0-37.0) g/dL Plt Count 451 H (140-440) X 10*3/uL Immature Gran # 0.06 H (0.00-0.04) X 10*3/uL Neutrophils # 7.72 H (1.80-7.70) X 10*3/uL Lymphocytes # 0.76 L (0.90-5.00) X 10*3/uL Eosinophils # 0 L (0.04-0.35) X 10*3/uL Creatinine (0.6-1.5) mg/dL BUN/Creatinine Ratio (12.00-20.00) Ratio Glucose (70-110) mg/dL POC Glucose (mg/dL) 399 H 286 H (75-99) mg/dL Calcium (8.7-10.3) mg/dL Total Bilirubin (0.30-1.20) mg/dL AST (13-35) U/L Total Protein (6.2-8.2) g/dL Albumin (3.8-4.9) g/dL Albumin/Globulin Ratio (1.60-3.17) g/dL 09/19/21 09/19/21 09/19/21 Range/Units 05:14 06:42 11:06 RBC (4.10-5.20) X 10*6/uL Hgb (12.0-15.0) g/dL Hct (37.2-46.3) % MCH (27.0-32.0) pg MCHC (32.0-37.0) g/dL Plt Count (140-440) X 10*3/uL Immature Gran # (0.00-0.04) X 10*3/uL Neutrophils # (1.80-7.70) X 10*3/uL Lymphocytes # (0.90-5.00) X 10*3/uL Eosinophils # (0.04-0.35) X 10*3/uL Creatinine 0.5 L (0.6-1.5) mg/dL BUN/Creatinine Ratio 30.60 H (12.00-20.00) Ratio Glucose 229 H (70-110) mg/dL POC Glucose (mg/dL) 215 H 183 H (75-99) mg/dL Calcium 8.4 L (8.7-10.3) mg/dL Total Bilirubin <0.15 L (0.30-1.20) mg/dL AST 7 L (13-35) U/L Total Protein 5.4 L (6.2-8.2) g/dL Albumin 2.9 L (3.8-4.9) g/dL Albumin/Globulin Ratio 1.16 L (1.60-3.17) g/dL 09/19/21 Range/Units 16:27 RBC (4.10-5.20) X 10*6/uL Hgb (12.0-15.0) g/dL Hct (37.2-46.3) % MCH (27.0-32.0) pg MCHC (32.0-37.0) g/dL Plt Count (140-440) X 10*3/uL Immature Gran # (0.00-0.04) X 10*3/uL Neutrophils # (1.80-7.70) X 10*3/uL Lymphocytes # (0.90-5.00) X 10*3/uL Eosinophils # (0.04-0.35) X 10*3/uL Creatinine (0.6-1.5) mg/dL BUN/Creatinine Ratio (12.00-20.00) Ratio Glucose (70-110) mg/dL POC Glucose (mg/dL) 467 H (75-99) mg/dL Calcium (8.7-10.3) mg/dL Total Bilirubin (0.30-1.20) mg/dL AST (13-35) U/L Total Protein (6.2-8.2) g/dL Albumin (3.8-4.9) g/dL Albumin/Globulin Ratio (1.60-3.17) g/dL Microbiology - Last 24 Hours (Table) 09/15/21 14:15 Blood Culture - Preliminary Blood No Growth after 96 hours 09/15/21 14:00 Blood Culture - Preliminary Blood No Growth after 96 hours
[2021-09-19 21:27] LABS: Glucose,Whole Blood 388 mg/dL (75-99)
[2021-09-19] MEDS: ATORVASTATIN 10 MG TAB PO SCH (21:45)
[2021-09-19] MEDS: INSULIN DETEMIR (LEVEMIR) 100 UNIT/ML SYR SQ SCH (21:45)
[2021-09-20] MEDS: HEPARIN SODIUM,PORCINE/PF 5,000 UNIT/0.5 ML SYRINGE SQ SCH ×3 (00:58→17:18)
[2021-09-20] MEDS: methylPREDNISolone SOD SUCCI 125 MG/2 ML VIAL IV SCH ×3 (00:58→17:18)
[2021-09-20] MEDS: SODIUM CHLORIDE 0.9% 1,000 ML IV SCH (00:59)
[2021-09-20 06:54] LABS: Glucose,Whole Blood 268 mg/dL (75-99)
[2021-09-20] MEDS: LOSARTAN 50 MG TAB PO SCH (07:47)
[2021-09-20] MEDS: LABETALOL 200 MG TAB PO SCH (07:47)
[2021-09-20] MEDS: INSULIN ASPART (NovoLOG) 100 UNIT/ML VIAL SQ SCH ×7 (07:49→21:38)
[2021-09-20] MEDS: IPRATROPIUM-ALBUTEROL 3 ML NEB INHALATION SCH ×4 (08:04→19:47)
[2021-09-20] MEDS ORDERED: SODIUM CHLORIDE 0.65% NASAL SPRAY 44 ML BTL NASAL PRN (09:48)
[2021-09-20 11:35] LABS: Glucose,Whole Blood 310 mg/dL (75-99)
--- NOTE | 2021-09-20 11:54 | P.PN ---
Subjective Progress Note Date: 09/20/21 09/17/2021, the patient is being seen for a follow-up. The patient's, comfortable at this point in time. No new events or any new symptoms since yesterday. She started expressing shortness of breath with mobility. She remains on examination Rocephin and Zithromax. She is on IV Solu-Medrol. This has resulted in to some elevation of blood sugar reported reason the patient will start on Levemir insulin 30 units in combination with 10 units of NovoLog with meals and a sliding scale coverage and the blood sugars under much better control for now. As mentioned earlier, I did suspect immunotherapy related pneumonia toxicity and the patient's pro calcitonin level has been low at 0.08. The genitourinary antigen came back negative. COVID 19 testing was negative. Influenza screen was negative. RSV screen was negative. Possibility of bronchoscopy needs to be considered to rule out infection. Overall clinical picture is consistent with immunotherapy induced lung injury. For now, the patient is on 3 L of oxygen by nasal cannula and the patient's pulse ox is on 93%. No interval worsening shortness of breath. In fact, she feels slightly improved compared to yesterday. Reevaluated today on 09/18/21, patient is on 4 L nasal cannula, and her O2 saturations 99%. Patient feels much better, remains on steroids, she is also on antibiotics empirically. She has very low pro calcitonin level of 0.08, and we believe that her pneumonia is most likely secondary or induced by immunotherapy. Clinically the patient is feeling better, at this point I don't see any need for bronchoscopy or biopsy of her lungs. Will continue present treatment plan, and continue to follow. Repeat chest x-ray in the next 24-48 hours. On 09/19/2021 patient seen in follow-up on medical surgical floor, she is resting comfortably in bed, she is currently on is of oxygen pulse ox is 94%, she's been afebrile, hemodynamically she is been stable, blood pressure has been stable, she is breathing quite comfortably, occasional cough, today she was able to bring up small amount of yellowish colored phlegm. No fever or chills, no hemoptysis. He is on high-dose IV steroids 60 mg every 6 hours of Solu-Medrol. She remains on empiric antibiotics in the form of Rocephin. She continues on breathing treatments. Lung sounds reveal some coarse crackles bilaterally, her last chest x-ray yesterday for 2021 showed perihilar and basilar coarse infiltrates that look unchanged compared to previous chest x-ray. On 09/20/2021 patient seen in follow-up on medical surgical floor, she sits up in a chair, breathing comfortable, she is currently on 2 L of oxygen pulse ox of 89-94%, minimal crackles at bilateral bases, no rhonchi no wheezing, no chest discomfort, remains on high-dose IV steroids with Solu-Medrol 61 g every 8 hours, remains on empiric antibiotics. No cough, no form production, blood cultures have been negative. Yesterday's labs showed normal white count of 8.8, hemoglobin of 9.6, electrodes were within normal limits, BUN was 15.3 and creatinine was 0.5. Legionella urine antigen was negative, progesterone level was negative. Patient is complaining of some nasal dryness, we'll add some na gisela rinses Objective - Vital Signs Vital signs: Vital Signs Temp 97.8 F 09/20/21 07:06 Pulse 93 09/20/21 11:43 Resp 16 09/20/21 07:06 BP 125/73 09/20/21 07:06 Pulse Ox 89 L 09/20/21 08:05 Intake & Output 09/19/21 09/20/21 09/20/21 18:59 06:59 18:59 Intake Total 1320 296 Balance 1320 296 Intake: IV 360 Sodium Chloride 0.9% 1, 360 000 ml @ 75 mls/hr IV . [id number] [facility] Rx#:[id number] Oral 960 296 Other: Voiding Method Toilet Toilet - Exam GENERAL EXAM: Alert, very pleasant, 62-year-old white female, 2 L of oxygen with a pulse ox of 94% comfortable in no apparent distress. HEAD: Normocephalic/atraumatic. EYES: Normal reaction of pupils, equal size. Conjunctiva pink, sclera white. NOSE: Clear with pink turbinates. THROAT: No erythema or exudates. NECK: No masses, no JVD, no thyroid enlargement, no adenopathy. CHEST: No chest wall deformity. Symmetrical expansion. LUNGS: Equal air entry with bibasilar crackles CVS: Regular rate and rhythm, normal S1 and S2, no gallops, no murmurs, no rubs ABDOMEN: Soft, nontender. No hepatosplenomegaly, normal bowel sounds, no guarding or rigidity. EXTREMITIES: No clubbing, chronic swelling in the left upper extremity related to history of lymph node removal in the left arm, no cyanosis, 2+ pulses and upper and lower extremities. MUSCULOSKELETAL: Muscle strength and tone normal. SPINE: No scoliosis or deformity SKIN: No rashes CENTRAL NERVOUS SYSTEM: Alert and oriented -3. No focal deficits, tone is normal in all 4 extremities. PSYCHIATRIC: Alert and oriented -3. Appropriate affect. Intact judgment and insight. - Labs CBC & Chem 7: 09/19/21 05:14 09/19/21 05:14 Labs: Abnormal Lab Results - Last 24 Hours (Table) 09/19/21 09/19/21 09/20/21 Range/Units 16:27 21:18 06:52 POC Glucose (mg/dL) 467 H 388 H 268 H (75-99) mg/dL 09/20/21 Range/Units 11:34 POC Glucose (mg/dL) 310 H (75-99) mg/dL Microbiology - Last 24 Hours (Table) 09/15/21 14:15 Blood Culture - Preliminary Blood No Growth after 96 hours 09/15/21 14:00 Blood Culture - Preliminary Blood No Growth after 96 hours Assessment and Plan Plan: Assessment: #1. Acute hypoxic respiratory failure secondary to possibility of immunotherapy induced pneumonitis. Possibility of pneumonia was considered less likely nevertheless patient is empirically covered with Rocephin #2. History of breast cancer postlumpectomy on the right followed by radiation therapy and immunotherapy #3. History of diabetes mellitus type 2 #4. Benign essential hypertension #5. Dyslipidemia Plan: Continue IV steroids Continue empiric antibiotics Add Saline rinses for nasal congestion Follow up CXR in am I have personally seen and examined the patient, performed the documentation and the assessment and plan as written. Number of minutes spent on the visit: [10] Time with Patient: Less than 30
[2021-09-20 16:38] LABS: Glucose,Whole Blood 307 mg/dL (75-99)
--- NOTE | 2021-09-20 18:03 | P.PN ---
Subjective Progress Note Date: 09/20/21 (delayed charting seen at 0945) Principal diagnosis: shortness of breath Patient is a 70-year-old female with a history of diabetes mellitus type 2, hypertension, dyslipidemia, and breast cancer currently on Keytruda who presented with shortness of breath. In the ER she underwent an extensive evaluation. CT chest revealed extensive bilateral infiltrates with possible infection. Laboratory analysis showed a platelet count of 616, influenza and COVID-19 testing was negative. Patient was found to be hyperglycemic with a glucose of 265, magnesium 1.5, and room air O2 sat of 81%. She was subsequently admitted for further monitoring. Pulmonary was consulted and the patient was started on Rocephin and Zithromax. She was then started on IV steroids. She completed 3 days of Zithromax was continued on Rocephin. She continues to well throughout her hospital stay but did develop some significant hyperglycemia secondary to steroids. Her pro-calcitonin came back normal at 0.08. Legionella and RSV testing was negative. She continued to require oxygen. Patient seen and examined at bedside. She states her breathing is much better. She is feeling back to normal. Denies any nausea, vomiting. Eating and drinking well. General: non toxic, no distress, appears at stated age Derm: warm, dry Head: atraumatic, normocephalic, symmetric Eyes: EOMI, no lid lag, anicteric sclera Mouth: no lip lesion, mucus membranes moist Cardiovascular: S1S2 reg, no murmur, positive posterior tibial pulse bilateral, Lungs: Rhonchi bilateral, no rhonchi, no rales , no accessory muscle use Abdominal: soft, nontender to palpation, no guarding, no appreciable organomega ly Ext: no gross muscle atrophy, no edema, no contractures Neuro: CN II-XI grossly intact, no focal neuro deficits Psych: Alert, oriented, appropriate affect Assessment/plan: 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 Objective - Vital Signs Vital signs: Vital Signs Temp 98.2 F 09/20/21 14:00 Pulse 92 09/20/21 16:05 Resp 16 09/20/21 14:00 BP 113/64 09/20/21 14:00 Pulse Ox 92 L 09/20/21 15:53 Intake & Output 09/19/21 09/20/21 09/20/21 18:59 06:59 18:59 Intake Total 1320 1128 Balance 1320 1128 Intake: IV 360 Sodium Chloride 0.9% 1, 360 000 ml @ 75 mls/hr IV . [id number] [facility] Rx#:[id number] Oral 960 1128 Other: Voiding Method Toilet Toilet # Voids 3 - Labs CBC & Chem 7: 09/19/21 05:14 09/19/21 05:14 Labs: Abnormal Lab Results - Last 24 Hours (Table) 09/19/21 09/20/21 09/20/21 Range/Units 21:18 06:52 11:34 POC Glucose (mg/dL) 388 H 268 H 310 H (75-99) mg/dL 09/20/21 Range/Units 16:34 POC Glucose (mg/dL) 307 H (75-99) mg/dL Microbiology - Last 24 Hours (Table) 09/15/21 14:00 Blood Culture - Preliminary Blood No Growth after 120 hours 09/15/21 14:15 Blood Culture - Preliminary Blood No Growth after 120 hours
[2021-09-20 21:17] LABS: Glucose,Whole Blood 300 mg/dL (75-99)
[2021-09-20] MEDS: ATORVASTATIN 10 MG TAB PO SCH (21:37)
[2021-09-20] MEDS: INSULIN DETEMIR (LEVEMIR) 100 UNIT/ML SYR SQ SCH (21:37)
[2021-09-20] MEDS: metFORMIN 500 MG TAB PO SCH (21:41)
[2021-09-21] MEDS: methylPREDNISolone SOD SUCCI 125 MG/2 ML VIAL IV SCH ×2 (00:53→07:14)
[2021-09-21] MEDS: HEPARIN SODIUM,PORCINE/PF 5,000 UNIT/0.5 ML SYRINGE SQ SCH ×2 (00:54→08:14)
[2021-09-21] MEDS: SODIUM CHLORIDE 0.9% 1,000 ML IV SCH (00:58)
--- NOTE | 2021-09-21 07:18 | XR ---
EXAMINATION TYPE: XR chest 1V portable DATE OF EXAM: 09/21/2021 Comparison: 09/18/2021 Clinical History: 70-year-old female shortness of breath Findings: Heart mildly enlarged. Patchy and interstitial opacities in the mid and lower lungs persist without s ignificant change. Surgical clips from prior right-sided breast lumpectomy. Impression: 1. Similar mild cardiomegaly. 2. Continued patchy and interstitial opacities in the mid and lower lungs without significant change.
[2021-09-21 07:32] LABS: Glucose,Whole Blood 122 mg/dL (75-99)
[2021-09-21] MEDS: INSULIN ASPART (NovoLOG) 100 UNIT/ML VIAL SQ SCH ×2 (07:44→08:22)
[2021-09-21] MEDS: LOSARTAN 50 MG TAB PO SCH (08:14)
[2021-09-21] MEDS: metFORMIN 500 MG TAB PO SCH (08:14)
[2021-09-21] MEDS: LABETALOL 200 MG TAB PO SCH (08:15)
[2021-09-21] MEDS: IPRATROPIUM-ALBUTEROL 3 ML NEB INHALATION SCH ×2 (08:24→12:05)
[2021-09-21 08:49] VITALS: BP 134/72; PULSE 90; TEMP 98.6
[2021-09-21 08:50] VITALS: RESP 18
[2021-09-21 11:29] LABS: Glucose,Whole Blood 310 mg/dL (75-99)
--- NOTE | 2021-09-21 13:08 | P.PN ---
Subjective Progress Note Date: 09/21/21 09/17/2021, the patient is being seen for a follow-up. The patient's, comfortable at this point in time. No new events or any new symptoms since yesterday. She started expressing shortness of breath with mobility. She remains on examination Rocephin and Zithromax. She is on IV Solu-Medrol. This has resulted in to some elevation of blood sugar reported reason the patient will start on Levemir insulin 30 units in combination with 10 units of NovoLog with meals and a sliding scale coverage and the blood sugars under much better control for now. As mentioned earlier, I did suspect immunotherapy related pneumonia toxicity and the patient's pro calcitonin level has been low at 0.08. The genitourinary antigen came back negative. COVID 19 testing was negative. Influenza screen was negative. RSV screen was negative. Possibility of bronchoscopy needs to be considered to rule out infection. Overall clinical picture is consistent with immunotherapy induced lung injury. For now, the patient is on 3 L of oxygen by nasal cannula and the patient's pulse ox is on 93%. No interval worsening shortness of breath. In fact, she feels slightly improved compared to yesterday. Reevaluated today on 09/18/21, patient is on 4 L nasal cannula, and her O2 saturations 99%. Patient feels much better, remains on steroids, she is also on antibiotics empirically. She has very low pro calcitonin level of 0.08, and we believe that her pneumonia is most likely secondary or induced by immunotherapy. Clinically the patient is feeling better, at this point I don't see any need for bronchoscopy or biopsy of her lungs. Will continue present treatment plan, and continue to follow. Repeat chest x-ray in the next 24-48 hours. On 09/19/2021 patient seen in follow-up on medical surgical floor, she is resting comfortably in bed, she is currently on is of oxygen pulse ox is 94%, she's been afebrile, hemodynamically she is been stable, blood pressure has been stable, she is breathing quite comfortably, occasional cough, today she was able to bring up small amount of yellowish colored phlegm. No fever or chills, no hemoptysis. He is on high-dose IV steroids 60 mg every 6 hours of Solu-Medrol. She remains on empiric antibiotics in the form of Rocephin. She continues on breathing treatments. Lung sounds reveal some coarse crackles bilaterally, her last chest x-ray yesterday for 2021 showed perihilar and basilar coarse infiltrates that look unchanged compared to previous chest x-ray. On 09/20/2021 patient seen in follow-up on medical surgical floor, she sits up in a chair, breathing comfortable, she is currently on 2 L of oxygen pulse ox of 89-94%, minimal crackles at bilateral bases, no rhonchi no wheezing, no chest discomfort, remains on high-dose IV steroids with Solu-Medrol 61 g every 8 hours, remains on empiric antibiotics. No cough, no form production, blood cultures have been negative. Yesterday's labs showed normal white count of 8.8, hemoglobin of 9.6, electrodes were within normal limits, BUN was 15.3 and creatinine was 0.5. Legionella urine antigen was negative, progesterone level was negative. Patient is complaining of some nasal dryness, we'll add some na gisela rinses On 09/21/2021 patient seen in follow-up on selective care unit, she is awake and alert, in no acute distress, breathing comfortable, lung sounds are essentially clear to auscultation, no rhonchi or wheezing. No acute events overnight. No cough, no chest discomfort, no hemoptysis. Today's chest x-ray showing continued patchy interstitial opacities in the mid and lower lungs without s ignificant change. Clinically patient has been very stable. Improved. Tolerating ambulation in the room, she's had no acute events overnight. Objective - Vital Signs Vital signs: Vital Signs Temp 98.6 F 09/21/21 08:00 Pulse 88 09/21/21 08:34 Resp 18 09/21/21 08:00 BP 134/72 09/21/21 08:00 Pulse Ox 90 L 09/21/21 08:00 Intake & Output 09/20/21 09/21/21 09/21/21 18:59 06:59 18:59 Intake Total 1128 Balance 1128 Intake: Oral 1128 Other: Voiding Method Toilet Toilet # Voids 3 3 5 # Bowel Movements 1 - Exam GENERAL EXAM: Alert, very pleasant, 62-year-old white female, 2 L of oxygen with a pulse ox of 94% comfortable in no apparent distress. HEAD: Normocephalic/atraumatic. EYES: Normal reaction of pupils, equal size. Conjunctiva pink, sclera white. NOSE: Clear with pink turbinates. THROAT: No erythema or exudates. NECK: No masses, no JVD, no thyroid enlargement, no adenopathy. CHEST: No chest wall deformity. Symmetrical expansion. LUNGS: Equal air entry with bibasilar crackles CVS: Regular rate and rhythm, normal S1 and S2, no gallops, no murmurs, no rubs ABDOMEN: Soft, nontender. No hepatosplenomegaly, normal bowel sounds, no guarding or rigidity. EXTREMITIES: No clubbing, chronic swelling in the left upper extremity related to history of lymph node removal in the left arm, no cyanosis, 2+ pulses and upper and lower extremities. MUSCULOSKELETAL: Muscle strength and tone normal. SPINE: No scoliosis or deformity SKIN: No rashes CENTRAL NERVOUS SYSTEM: Alert and oriented -3. No focal deficits, tone is normal in all 4 extremities. PSYCHIATRIC: Alert and oriented -3. Appropriate affect. Intact judgment and insight. - Labs CBC & Chem 7: 09/19/21 05:14 09/19/21 05:14 Labs: Abnormal Lab Results - Last 24 Hours (Table) 09/20/21 09/20/21 09/21/21 Range/Units 16:34 21:16 07:30 POC Glucose (mg/dL) 307 H 300 H 122 H (75-99) mg/dL 09/21/21 Range/Units 11:27 POC Glucose (mg/dL) 310 H (75-99) mg/dL Microbiology - Last 24 Hours (Table) 09/15/21 14:00 Blood Culture - Preliminary Blood No Growth after 120 hours 09/15/21 14:15 Blood Culture - Preliminary Blood No Growth after 120 hours Assessment and Plan Plan: Assessment: #1. Acute hypoxic respiratory failure secondary to possibility of immunotherapy induced pneumonitis. Possibility of pneumonia was considered less likely nevertheless patient is empirically covered with Rocephin #2. History of breast cancer postlumpectomy on the right followed by radiation therapy and immunotherapy #3. History of diabetes mellitus type 2 #4. Benign essential hypertension #5. Dyslipidemia Plan: Patient is doing well Follow-up chest x-ray shows stable patchy and interstitial opacities in the mid to lower lungs Vital signs have been stable, patient is on room air No fever or chills Patient is being discharged home today on a two-week course of Prednisone 60 mg daily She has completed a course of empiric antibiotics Outpatient follow-up with Dr. Stevenson in the office in one or 2 weeks I have personally seen and examined the patient, performed the documentation and the assessment and plan as written. Number of minutes spent on the visit: [10] Time with Patient: Less than 30
--- NOTE | 2021-09-21 20:01 | P.DS ---
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 In the ER she underwent an extensive evaluation. CT chest revealed extensive bilateral infiltrates with possible infection. Laboratory analysis showed a platelet count of 616, influenza and COVID-19 testing was negative. Patient was found to be hyperglycemic with a glucose of 265, magnesium 1.5, and room air O2 sat of 81%. She was subsequently admitted for further monitoring. Pulmonary was consulted and the patient was started on Rocephin and Zithromax. She was then started on IV steroids. She completed 3 days of Zithromax was continued on Rocephin. She continues to well throughout her hospital stay but did develop some significant hyperglycemia se condary to steroids. Her pro-calcitonin came back normal at 0.08. Legionella and RSV testing was negative. She continued to require oxygen which was eventually able to be weaned and she was determined stable for discharge. Follow-up: Dr. Dimas next week, Dr. Licea. D/W oncology and Prednisone 60 mg daily and then they will isauro at outpatient. She continued to have hyperglycemia and needed to be started on levemir as outpatient. She was given instructions on how to wean levemir if BS is less than 150 fasting in the mornings. Patient seen and examined at bedside. No chest pain breathing well, excited to go home.Anxious about insulin but both her duaghter are RNs. Vital signs reviewed and stable. General: non toxic, no distress, appears at stated age Derm: warm, dry Head: atraumatic, normocephalic, symmetric Eyes: EOMI, no lid lag, anicteric sclera Mouth: no lip lesion, mucus membranes moist Cardiovascular: S1S2 reg, no murmur, positive posterior tibial pulse bilateral, Lungs: CTA bilateral, no rhonchi, no rales , no accessory muscle use Abdominal: soft, nontender to palpation, no guarding, no appreciable organomegaly Ext: no gross muscle atrophy, no edema, no contractures Neuro: CN II-XI grossly intact, no focal neuro deficits Psych: Alert, oriented, appropriate affect A total of 37 minutes of time were spent preparing this complex discharge summary . Plan - Discharge Summary Discharge Rx Participant: Yes New Discharge Prescriptions: New predniSONE [Deltasone] 60 mg PO DAILY #42 tab Insulin Detemir [Levemir Flextouch Pen] 35 units SQ HS #5 each Ipratropium/Albuterol Sulfate [Combivent Respimat Inhaler] 2 puff INHALATION QID #1 each Continue metFORMIN HCL [Glucophage] 1,000 mg PO AC-BID Losartan [Cozaar] 50 mg PO AC-BRKFST Atorvastatin [Lipitor] 10 mg PO HS Labetalol [Trandate] 200 mg PO AC-BRKFST Krill/Om-3/Dha/Epa/Phospho/Ast [Megared [place]-3 Krill 350 mg] 1 cap PO DAILY C,E,Zinc,Copper 11/Pezvs0d/Lut [Ocuvite Adult 50 Plus Softgel] 1 cap PO QAM Discontinued Empagliflozin [Jardiance] 25 mg PO W/LUNCH Pembrolizumab [Keytruda] 200 mg IV Q21D Discharge Medication List Atorvastatin [Lipitor] 10 mg PO HS 07/15/20 [History] Labetalol [Trandate] 200 mg PO AC-BRKFST 07/15/20 [History] Losartan [Cozaar] 50 mg PO AC-BRKFST 07/15/20 [History] metFORMIN HCL [Glucophage] 1,000 mg PO AC-BID 07/15/20 [History] C,E,Zinc,Copper 11/Dxwpu9y/Lut [Ocuvite Adult 50 Plus Softgel] 1 cap PO QAM 08/19/20 [History] Krill/Om-3/Dha/Epa/Phospho/Ast [Megared [place]-3 Krill 350 mg] 1 cap PO DAILY 08/19/20 [History] Insulin Detemir [Levemir Flextouch Pen] 35 units SQ HS #5 each 09/21/21 [Rx] Ipratropium/Albuterol Sulfate [Combivent Respimat Inhaler] 2 puff INHALATION QID #1 each 09/21/21 [Rx] predniSONE [Deltasone] 60 mg PO DAILY #42 tab 09/21/21 [Rx] Follow up Appointment(s)/Referral(s): Magen Lieca MD [Primary Care Provider] - 1-2 days (office is busy at time of discharge. Please call to schedule appointment ) Wil Dimas MD [STAFF PHYSICIAN] - 1 Week (breast cancer. office will with appointment time) Neo Stevenson MD [STAFF PHYSICIAN] - 10/12/21 2:30 pm (With Kika Gonzalez) Patient Instructions/Handouts: Hypoxia (GEN) Activity/Diet/Wound Care/Special Instructions: Activity: as tolerated Diet: carb consistent Special Instructions: Check blood sugar once daily in the morning before eating and then again 2 hours after a meal. Make a log to bring to your doctor appointment. Continue with Levemir once daily and if morning fasting blood sugar is less than 175 for 2 days in a row then decrease dosing by [address] Dimas will see you and wean your steroids. Discharge Disposition: HOME SELF-CARE
== END 2021-09-21 12:07 | disposition home or self-care (01) | DRG 205 ==
LOC: EC 12:42 → 4SSUR 17:32
PROVIDERS: ADMIT Internal Medicine; ATTEND Internal Medicine
DX: J70.2 Acute drug-induced interstitial lung disorders (principal); J96.01 Acute respiratory failure with hypoxia; E87.1 Hypo-osmolality and hyponatremia; J44.0 Chronic obstructive pulmonary disease with (acute) lower respiratory infection; C50.919 Malignant neoplasm of unspecified site of unspecified female breast; D64.9 Anemia, unspecified; D75.839 Thrombocytosis, unspecified; E11.65 Type 2 diabetes mellitus with hyperglycemia; E78.5 Hyperlipidemia, unspecified; E83.42 Hypomagnesemia; E87.8 Other disorders of electrolyte and fluid balance, not elsewhere classified; I10 Essential (primary) hypertension; I45.9 Conduction disorder, unspecified; T45.1X5A Adverse effect of antineoplastic and immunosuppressive drugs, initial encounter; T50.Z95A Adverse effect of other vaccines and biological substances, initial encounter; T38.0X5A Adverse effect of glucocorticoids and synthetic analogues, initial encounter; Z20.822 Contact with and (suspected) exposure to COVID-19; Z79.4 Long term (current) use of insulin; Z79.84 Long term (current) use of oral hypoglycemic drugs; Z79.899 Other long term (current) drug therapy; Z83.3 Family history of diabetes mellitus; Z86.16 Personal history of COVID-19; Z90.12 Acquired absence of left breast and nipple
CPT/HCPCS: 36415; 71045; 71046; 71275; 80048; 80053; 81003; 83036; 83605; 83735; 83880; 84145; 84484; 85025; 85027; 85379; 85610; 85730; 87040; 87449; 87502; 87634; 87635; 93005; 94640; 94760; 96374; 99285

== ENCOUNTER → 2021-11-15 | Outpatient (CLI) | payer MEDICARE ==
[2021-11-15 10:26] LABS: African American GFR (CKD) >90 (>60 ml/min/1.73 sqM); Blood Urea Nitrogen 12 mg/dL (7-17); Non-African American GFR(CKD) >90 (>60 ml/min/1.73 sqM)
--- NOTE | 2021-11-15 12:42 | CT ---
EXAMINATION TYPE: CT chest w con DATE OF EXAM: 11/15/2021 COMPARISON: CT dated 09/15/2021 HISTORY: Malignant neoplasm of Breast CT DLP: 448 mGycm Automated exposure control for dose reduction was used. TECHNIQUE: CT scan of the chest is performed with IV Contrast, patient injected with 70 mL of Isovue 300. FINDINGS: LUNGS: Multiple variable sizes scattered bilateral pulmonary, mainly upper and mid lung zone irregula r opacities, demonstrating subtle internal cystic changes and spiculated outline measuring up to 2.2 cm in the right lung and 4.4 cm and the left lung. They are mainly peripheral in location. The could represent sequela of the previously seen inflammatory/infectious process however metastatic disease o r septic emboli cannot be excluded. Stable right basal pleural based 13 mm nodule. Patent trachea and main bronchi. No pleural effusion MEDIASTINUM: There are no greater than 1 cm hilar or mediastinal lymph nodes. No gross cardiomegaly. Arterial and coronary atherosclerotic calcifications. No pericardial effusion is seen. OTHER: Previous left mastectomy with left breast prosthesis. Thickened skin of the right breast with multiple surgical clips within, please correlate with mammography/breast ultrasound results. Small s liding hiatal hernia. Degenerative changes of the thoracic spine and left sternoclavicular joint. No gross aggressive bone lesion. IMPRESSION: Multiple bilateral pulmonary lesions as detailed above. They could represent sequela of a previous in flammatory/infectious process (including atypical infection or COVID-19 infection) however metastatic lesions or septic emboli cannot be excluded. Recommend clinical correlation and further workup. Furt her PET scan assessment can be considered. Other findings as described above.
== END | disposition home or self-care (01) ==
LOC: RADPROMAIN 09:33
PROVIDERS: ATTEND Internal Medicine Hematology & Oncology
DX: C50.919 Malignant neoplasm of unspecified site of unspecified female breast (principal); J98.4 Other disorders of lung
CPT/HCPCS: 82565; 84520; 71260; 36415; Q9967

== ENCOUNTER → 2022-01-18 | Outpatient (CLI) | payer MEDICARE ==
[2022-01-18 11:51] LABS: African American GFR (CKD) >90 (>60 ml/min/1.73 sqM); Blood Urea Nitrogen 16 mg/dL (7-17); Non-African American GFR(CKD) >90 (>60 ml/min/1.73 sqM)
--- NOTE | 2022-01-18 12:44 | CT ---
EXAMINATION TYPE: CT chest w con CT DLP: 215.6 mGycm, Automated exposure control for dose reduction was used. DATE OF EXAM: 01/18/2022 12:18 PM COMPARISON: 11/15/2021, 09/15/2021, 01/23/2011 CLINICAL INDICATION:Female, 71 years old with history of J98.4 pulmonary nodule; , Pulmonary nodule TECHNIQUE: Multiple axial images were obtained through the chest. Sagittal and coronal reformats were created for review. Contrast used:70 mL of Isovue 300 with IV Contrast, none. Oral contrast used: none. FINDINGS: LUNGS/ PLEURA: Scattered ground glass opacities are seen throughout the lungs which are improved slig htly since 09/15/2021. No focal consolidation, pneumothorax or pleural effusion today's exam. There rem ains a right lower lobe 11 mm pulmonary nodule which is not significantly changed from 09/15/2021. AIRWAY: Patent and unremarkable. HEART: Size within normal limits. MEDIASTINUM: No gross evidence of adenopathy. VASCULATURE: No aortic aneurysm. Common origin of the left common carotid artery and brachiocephalic trunk. MUSCULOSKELETAL: No acute osseous abnormalities SOFT TISSUES/LYMPH NODES: The left breast is surgically absent. Mild right breast skin thickening. Th ere is patchy clips in the right breast. LOWER NECK: No significant findings. UPPER ABDOMEN: No significant findings. IMPRESSION: 1. Continued improvement of multifocal groundglass opacities are seen on priors dating back to 022 There remains some atelectasis/scarring in these sites. 2. Right lower lobe 11 mm pulmonary nodule unchanged from 09/27/2021, new from October 23, 2010. 3. Right breast skin thickening correlate with mammographic workup.
== END | disposition home or self-care (01) ==
LOC: RADCTMAIN 10:59
PROVIDERS: ATTEND Internal Medicine Hematology & Oncology
DX: C50.411 Malignant neoplasm of upper-outer quadrant of right female breast (principal); J98.4 Other disorders of lung; N64.89 Other specified disorders of breast
CPT/HCPCS: 82565; 84520; 71260; 36415; Q9967

== ENCOUNTER → 2022-03-19 | Outpatient (CLI) | payer MEDICARE ==
--- NOTE | 2022-03-19 09:54 | MM ---
Reason for Exam: Follow-up at short interval from prior study. Last screening mammogram was performed 7 month(s) ago. Patient History: Menarche at age 13. First Full-Term at age 29. Postmenopausal. Breast cancer, age 70. Previous chest radiation therapy. Previous chemotherapy. 2010, Mastectomy on the Left side. 11/29/2020, Lumpectomy on the Right side. 04/2005, Benign Core Biopsy on the right side. Excisional Biopsy on the Left side. 11/29/2020, Malignant Core Biopsy on the right side. 07/21/2020, Malignant Core Biopsy on the right side. 12/19/2010, Malignant Core Biopsy on the left side. 12/19/2010, Malignant Core Biopsy on the left side. 05/15/2005, Benign Core Biopsy on the left side. 05/22/2002, Benign Stereotactic Core Biopsy on the right side. Chemotherapy. Radiation Therapy. Prior Study Comparison: 03/26/2016 Right Diagnostic Mammogram, [facility]. 03/27/2017 Right Diagnostic Mammogram, [facility]. 04/09/2018 Right Diagnostic Mammogram, [facility]. 05/18/2019 Right Diagnostic Mammogram, [facility]. 07/13/2020 Right Diagnostic Mammogram, [facility]. 07/13/2020 Right Diagnostic Ultrasound, [facility]. 07/21/2020 Right Diagnostic Mammogram, [facility]. 08/15/2021 Right Diagnostic Mammogram, [facility]. Tissue Density: Right: The breast tissue is heterogeneously dense. This may lower the sensitivity of mammography. Findings: Analyzed By CAD. Previous mammotome biopsy right breast. Postsurgical and post therapy changes to the right breast. Multiple coarse and round calcifications are redemonstrated. Overall Assessment: Benign, BI-RAD 2 Management: Diagnostic Mammogram of the right breast in 1 year. A clinical breast exam by your physician is recommended on an annual basis and results should be correlated with mammographic findings. This exam should not preclude additional follow-up of suspicious palpable abnormalities. Results were given to the patient verbally at the time of exam. Electronically signed and approved by: Darell Rubalcava D.O.
== END | disposition home or self-care (01) ==
LOC: RADMAMWWP 08:38
PROVIDERS: ATTEND Internal Medicine Hematology & Oncology
DX: R92.8 Other abnormal and inconclusive findings on diagnostic imaging of breast (principal); Z78.0 Asymptomatic menopausal state
CPT/HCPCS: 77065; G0279; 77061

== ENCOUNTER → 2022-05-17 | Outpatient (CLI) | payer MEDICARE ==
[2022-05-17 09:11] LABS: African American GFR (CKD) >90 (>60 ml/min/1.73 sqM); Blood Urea Nitrogen 16 mg/dL (7-17); Non-African American GFR(CKD) >90 (>60 ml/min/1.73 sqM)
--- NOTE | 2022-05-17 10:20 | CT ---
EXAMINATION TYPE: CT chest w con DATE OF EXAM: 05/17/2022 COMPARISON: January 18, 2022 HISTORY: Pulmonary Nodule CT DLP: 255 mGycm Automated exposure control for dose reduction was used. CONTRAST: CT scan of the chest is performed with IV Contrast, patient injected with 70 mL of Isovue 300. FINDINGS: LUNGS: 11 mm right lower lobe pulmonary nodule is stable. No new nodules identified. There is resolut ion of previously noted scattered groundglass infiltrates. Mild subpleural fibrosis left upper lobe a nteriorly likely a result of radiation therapy. MEDIASTINUM: There are no greater than 1 cm hilar or mediastinal lymph nodes. No pericardial effusi on is seen. Thoracic aorta is of normal caliber. The heart is not enlarged. UPPER ABDOMEN: No significant abnormality appreciated. OTHER: Left-sided mastectomy. IMPRESSION: 1. Stable right lower lobe 11 mm pulmonary nodule. 2. Resolution of previously noted scattered groundglass infiltrates.
== END | disposition home or self-care (01) ==
LOC: RADCTMAIN 08:34
PROVIDERS: ATTEND Internal Medicine Hematology & Oncology
DX: C50.411 Malignant neoplasm of upper-outer quadrant of right female breast (principal); J98.4 Other disorders of lung
CPT/HCPCS: 82565; 84520; 71260; 36415; Q9967

== ENCOUNTER 2022-07-04 06:26 | Day surgery (SDC) | payer MEDICARE ==
[2022-07-03 09:37] VITALS: BMI 32.3
[~2022-07-04 06:26] MED LIST changes: -ACETAMINOPHEN TAB 500 MG TAB PO PRN; -DEXAMETHASONE SOD PHOSPHATE 4 MG/ML 1 ML VIAL IV ONE; -HEPARIN SODIUM,PORCINE/PF 5,000 UNIT/0.5 ML SYRINGE SQ PRN; +LIDOCAINE 1% (10MG/ML) FOR IV START INTRADERMA PRN; -MIDAZOLAM 2 MG/2 ML VIAL IV PRN; -Pre Op ABX Message 1 EACH MISC MISCELLANE ONE
[2022-07-04] MEDS ORDERED: ONDANSETRON 4 MG/2 ML VIAL IVP PRN (07:00)
[2022-07-04 07:47] VITALS: RESP 16; TEMP 96.6
[2022-07-04 07:48] LABS: Glucose,Whole Blood 117 mg/dL (70-110)
[2022-07-04] MEDS ORDERED: PROPOFOL 10 MG/ML 20 ML VIAL IV ONE (08:03)
--- NOTE | 2022-07-04 08:21 | P.PCN ---
Date of Procedure: 07/04/22 Procedure(s) Performed: BRIEF HISTORY: Patient is a 71-year-old pleasant white female scheduled for an elective colonoscopy as a part of screening for colon cancer. Her last colonoscopy was 11 years ago. PROCEDURE PERFORMED: Colonoscopy with snare polypectomy. PREOPERATIVE DIAGNOSIS: Screening for colon cancer. IV sedation per Anesthesia. PROCEDURE: After informed consent was obtained, the patient, was brought into the endoscopy unit. IV sedation was administered by Anesthesia under continuous monitoring. Digital rectal examination was normal. Initially the Olympus CF-160 flexible video colonoscope was then inserted in the rectum, gradually advanced into the cecum without any difficulty. Careful examination was performed as the scope was gradually being withdrawn. Ileocecal valve and the appendiceal orifice were visualized and appeared normal. Prep was excellent. Mucosa of the cecum ap peared normal. In the ascending colon there was a 7-8 mm sessile polyp removed by snare polypectomy. Rest of the, ascending colon, transverse colon, descending colon, sigmoid colon, and rectum appeared normal. Retroflexion was performed in the rectum and no lesions were seen. The patient tolerated the procedure well. IMPRESSION: 7-8 mm ascending colon polyp status post polypectomy Rest of the colon appeared normal RECOMMENDATIONS: Findings of this examination were discussed with the patient as well as a family. She was advised to have follow with the biopsy results. If the biopsy reveals adenoma she can have a repeat colonoscopy in 5 years.
[2022-07-04 08:50] VITALS: BP 123/77; PULSE 66
== END 2022-07-04 09:15 | disposition home or self-care (01) ==
LOC: ORWHC2ENDO 06:26
PROVIDERS: ATTEND Internal Medicine Gastroenterology
DX: Z12.11 Encounter for screening for malignant neoplasm of colon (principal); D12.2 Benign neoplasm of ascending colon; E78.5 Hyperlipidemia, unspecified; E11.9 Type 2 diabetes mellitus without complications; Z85.3 Personal history of malignant neoplasm of breast; Z92.21 Personal history of antineoplastic chemotherapy; Z79.02 Long term (current) use of antithrombotics/antiplatelets; Z79.4 Long term (current) use of insulin; Z79.2 Long term (current) use of antibiotics; Z79.899 Other long term (current) drug therapy
CPT/HCPCS: 88305; 45385; J2704

== ENCOUNTER → 2022-11-15 | Outpatient (CLI) | payer MEDICARE ==
--- NOTE | 2022-11-15 10:50 | CT ---
EXAMINATION TYPE: CT chest wo con CT DLP: 266.4 mGycm, Automated exposure control for dose reduction was used. DATE OF EXAM: 11/15/2022 9:59 AM COMPARISON: CT chest 05/17/2022, 01/18/2022, 11/15/2021, CTA chest 09/15/2021 CLINICAL INDICATION:Female, 72 years old with history of J98.4, C50.411; PHH, pulmonary nodule TECHNIQUE: Multiple axial images were obtained through the chest without IV contrast. Lack of IV or o ral contrast limits evaluation of solid and hollow organ viscera. . Coronal and sagittal reformats re viewed. FINDINGS: LUNGS/ PLEURA: No pleural effusion or pneumothorax. Left anterior upper lobe subpleural reticular op acities likely representing postradiation changes. Tree-in-bud nodular opacities identified within th e inferior aspect of the right upper lobe (series 4, image 26). Stable right lower lobe 1.1 cm pulmon rima nodule (series 4, image 54). Punctate catheter granuloma within the right midlung. AIRWAY: Patent and unremarkable.. HEART: Size within normal limits. No pericardial effusion. Mild coronary artery calcifications. MEDIASTINUM: No evidence of adenopathy. VASCULATURE: No aortic aneurysm. MUSCULOSKELETAL: No acute osseous abnormalities. No aggressive osseous lesion. SOFT TISSUES/LYMPH NODES: Postsurgical changes from left mastectomy. Biopsy clip associated within th e right breast. LOWER NECK: No significant findings. UPPER ABDOMEN: No significant findings. IMPRESSION: 1. Stable right lower lobe 1.1 cm pulmonary nodule. 2. Development of right upper lobe tree-in-bud nodular opacities likely representing an infectious/in flammatory process. Attention on follow-up examination. 3. Posttreatment changes from left mastectomy and radiation.
== END | disposition home or self-care (01) ==
LOC: RADCTMAIN 09:40
PROVIDERS: ATTEND Internal Medicine Hematology & Oncology
DX: C50.411 Malignant neoplasm of upper-outer quadrant of right female breast (principal); J98.4 Other disorders of lung; R91.8 Other nonspecific abnormal finding of lung field; Z90.12 Acquired absence of left breast and nipple
CPT/HCPCS: 71250

== ENCOUNTER → 2023-03-21 | Outpatient (CLI) | payer MEDICARE ==
--- NOTE | 2023-03-21 14:53 | MM ---
Reason for Exam: Additional evaluation requested from prior study. Last screening mammogram was performed 12 month(s) ago. Patient History: Menarche at age 13. First Full-Term at age 29. Postmenopausal. Breast cancer, left, age 60. Breast cancer, right, age 70. Previous chest radiation therapy. Previous chemotherapy. 2010, Mastectomy on the Left side. 11/29/2020, Lumpectomy on the Right side. 04/2005, Benign Core Biopsy on the right side. Excisional Biopsy on the Left side. 11/29/2020, Malignant Core Biopsy on the right side. 07/21/2020, Malignant Core Biopsy on the right side. 12/19/2010, Malignant Core Biopsy on the left side. 12/19/2010, Malignant Core Biopsy on the left side. 05/15/2005, Benign Core Biopsy on the left side. 05/22/2002, Benign Stereotactic Core Biopsy on the right side. Chemotherapy. Radiation Therapy. Prior Study Comparison: 03/26/2016 Right Diagnostic Mammogram, [facility]. 03/27/2017 Right Diagnostic Mammogram, [facility]. 04/09/2018 Right Diagnostic Mammogram, [facility]. 05/18/2019 Right Diagnostic Mammogram, [facility]. 07/13/2020 Right Diagnostic Mammogram, [facility]. 07/21/2020 Right Diagnostic Mammogram, [facility]. 08/15/2021 Right Diagnostic Mammogram, [facility]. 03/19/2022 Right MG 3D diag mammo w/cad RT, [facility]. Tissue Density: Right: The breast tissue is heterogeneously dense. This may lower the sensitivity of mammography. Findings: Analyzed By CAD. Postsurgical and posttreatment changes redemonstrated with multiple areas of fat necrosis calcifications. The fat necrosis calcifications in the posterior upper outer quadrant have been gradually increasing. No suspicious calcification or other discrete abnormality is seen. Overall Assessment: Benign, BI-RAD 2 Management: Diagnostic Mammogram of the right breast in 1 year. . Results were given to the patient verbally at the time of exam. Patient should continue monthly self-breast exams. A clinical breast exam by your physician is recommended on an annual basis. This exam should not preclude additional follow-up of suspicious palpable abnormalities. Electronically signed and approved by: Inga Mcgovern M.D. Radiologist
== END | disposition home or self-care (01) ==
LOC: RADMAMWWP 12:31
PROVIDERS: ATTEND Internal Medicine Hematology & Oncology
DX: R92.331 Mammographic heterogeneous density, right breast (principal); J98.4 Other disorders of lung; Z85.3 Personal history of malignant neoplasm of breast; Z78.0 Asymptomatic menopausal state
CPT/HCPCS: 77065; G0279; 77061

== ENCOUNTER → 2023-05-24 | Outpatient (CLI) | payer MEDICARE ==
--- NOTE | 2023-05-24 14:11 | CT ---
EXAMINATION TYPE: CT chest wo con DATE OF EXAM: 05/24/2023 COMPARISON: 11/15/2022 HISTORY: Hx breast ca, pulmonary nodule, observe for mets CT DLP: 054.80 mGycm. Automated Exposure Control for Dose Reduction was Utilized. TECHNIQUE: CT scan of the thorax is performed without IV contrast. FINDINGS: LUNGS: The lungs are grossly clear, there is no concerning consolidative pneumonia identified. Ther e is no pleural effusion or pneumothorax seen. The tracheobronchial tree is patent. Punctate microno dules are seen bilaterally and are stable. Pleural-based thickening bilaterally and emphysematous gary nges. Basilar bronchiectasis. There is a nodule in the right lung base measuring 1.1 cm stable prior exam. Underlying metastases re arz in the differential diagnosis. No evidence of failure. MEDIASTINUM: Lack of IV contrast is noted to limit evaluation for mediastinal and especially hilar ad enopathy. There are no definitive greater than 1 cm hilar or mediastinal lymph nodes. There is a tr eryn pericardial effusion seen. Mild atherosclerotic change aorta and coronary artery calcification. OTHER: Prior left mastectomy. Surgical clips in the right breast. No skin thickening the right breast stable from prior exam. Degenerative changes of the spine. Chronic rib deformities on the left stabl e. Small hiatal hernia. IMPRESSION: 1. Stable bilateral pulmonary nodules the largest measuring 1.1 cm right lower lobe 2. Stable posttreatment changes from left mastectomy. Follow-up recommendations for incidental pulmonary nodules are per [employer] or [employer].
== END | disposition home or self-care (01) ==
LOC: RADCTMAIN 12:29
PROVIDERS: ATTEND Internal Medicine Hematology & Oncology
DX: C50.411 Malignant neoplasm of upper-outer quadrant of right female breast (principal); J98.4 Other disorders of lung; R91.8 Other nonspecific abnormal finding of lung field; Z85.3 Personal history of malignant neoplasm of breast; Z90.12 Acquired absence of left breast and nipple
CPT/HCPCS: 71250

== ENCOUNTER → 2023-11-13 | Outpatient (CLI) | payer MEDICARE ==
--- NOTE | 2023-11-15 11:34 | CT ---
EXAMINATION TYPE: CT chest wo con CT DLP: 270.7 mGycm, Automated exposure control for dose reduction was used. DATE OF EXAM: 11/13/2023 11:02 AM COMPARISON: Chest radiograph from same day. Multiple CTs of the chest with most recent on . CLINICAL INDICATION:Female, 73 years old with history of J984 OTHER DISORDERS OF LUNG; C50.411; PHH, Pulmonary nodule TECHNIQUE: Multiple axial images were obtained through the chest. Sagittal and coronal reformats were created for review. Contrast used: mL of (None if empty) Oral contrast used: (None if empty) FINDINGS: LUNGS/ PLEURA: The lung parenchyma appears unremarkable. Pulmonary nodules: LLL: None FABIÁN: Two 3 mm calcified granuloma, series 4, image 12. RLL: None RML: One 2 mm calcified granuloma, Series 4, image 33 RLL: 1 cm soft tissue density nodule adjacent, attached to diaphragm, series 4, image 53, is stable AIRWAY: Patent and unremarkable. HEART: Size within normal limits. MEDIASTINUM: No gross evidence of adenopathy. VASCULATURE: No aortic aneurysm. MUSCULOSKELETAL: No acute osseous abnormalities SOFT TISSUES/LYMPH NODES: Left mastectomy. LOWER NECK: No significant findings. UPPER ABDOMEN: No significant findings. IMPRESSION: 1. Stable bilateral pulmonary nodules the largest measuring 1.1 cm right lower lobe 2. Stable posttreatment changes from left mastectomy. Follow-up recommendations for incidental pulmonary nodules are per [employer] on or [employer]. Follow up recommendations for incidental pulmonary nodules, if there are any, are per [employer] or [employer]. https://radiopaedia.org/articles/bqwlvuddfb-moapxom-fzrsgcore-cllffm-wjbhdivxqocpxwy-[email or web address]?lang=us
== END | disposition home or self-care (01) ==
LOC: RADCTMAIN 10:49
PROVIDERS: ATTEND Internal Medicine Hematology & Oncology
DX: R91.8 Other nonspecific abnormal finding of lung field (principal); J98.4 Other disorders of lung; C50.411 Malignant neoplasm of upper-outer quadrant of right female breast; Z15.09 Genetic susceptibility to other malignant neoplasm; Z90.12 Acquired absence of left breast and nipple
CPT/HCPCS: 71250

== ENCOUNTER → 2024-03-23 | Outpatient (CLI) | payer MEDICARE ==
--- NOTE | 2024-03-23 11:29 | MM ---
Reason for Exam: Screening (asymptomatic). Last screening mammogram was performed 12 month(s) ago. Patient History: Menarche at age 13. First Full-Term at age 29. Postmenopausal. Breast cancer, left, age 60. Breast cancer, right, age 70. Previous chest radiation therapy. Previous chemotherapy. 2010, Mastectomy on the Left side. 11/29/2020, Lumpectomy on the Right side. 04/2005, Benign Core Biopsy on the right side. Excisional Biopsy on the Left side. 11/29/2020, Malignant Core Biopsy on the right side. 07/21/2020, Malignant Core Biopsy on the right side. 12/19/2010, Malignant Core Biopsy on the left side. 12/19/2010, Malignant Core Biopsy on the left side. 05/15/2005, Benign Core Biopsy on the left side. 05/22/2002, Benign Stereotactic Core Biopsy on the right side. Chemotherapy. Radiation Therapy. Prior Study Comparison: 08/15/2021 Right Diagnostic Mammogram, [facility]. 03/19/2022 Right MG 3D diag mammo w/cad RT, [facility]. 03/21/2023 Right MG 3D diag mammo w/cad RT, [facility]. Tissue Density: Right: There are scattered areas of fibroglandular density. Findings: Right breast surgical clips. Right breast: There is no suspicious group of microcalcifications or new suspicious mass. Benign-appearing calcifications right breast. Overall Assessment: Benign, BI-RAD 2 Management: Screening Mammogram of the right breast in [address] [facility] will attempt to contact patient to return for supplemental views and ultrasound if indicated. Patient should continue monthly self-breast exams. A clinical breast exam by your physician is recommended on an annual basis. This exam should not preclude additional follow-up of suspicious palpable abnormalities. Note on Anahi scores and lifetime risk: 1. A Anahi score greater than 3% is considered moderate risk. If this is the case, consider specialist referral to assess eligibility for a risk reducing agent. 2. If overall lifetime risk for the development of breast cancer is 20% or higher, the patient may qualify for future screening with alternating mammogram and breast MRI. [facility], , 03/23/2024 11:16 AM. Electronically signed and approved by: Josiah Salcedo DO
== END | disposition home or self-care (01) ==
LOC: RADMAMWWP 10:33
PROVIDERS: ATTEND Internal Medicine Hematology & Oncology
CPT/HCPCS: 77067

== ENCOUNTER → 2024-05-21 | Outpatient (CLI) | payer MEDICARE ==
--- NOTE | 2024-05-21 11:10 | CT ---
EXAMINATION TYPE: CT chest wo con DATE OF EXAM: 05/21/2024 COMPARISON: 11/13/2023 CLINICAL INDICATION: Female, 73 years old with history of J98.4 PULM NOD C50.411 BREAST CA; PHH, lung nodule TECHNIQUE: CT scan of the thorax is performed without IV contrast. CT DLP: 278.[address] CTDI: mGy Automated exposure control for dose reduction was used. FINDINGS: There is a small hiatal hernia. The right lower lobe nodule when measured in a similar fashion when comparing the prior study to the current study reveals no interval change. It is approximately 14 mm. There are multiple scattered gra nulomas and micronodules which are stable. The gap is no airspace consolidation There is no pleural effusion or pneumothorax. Great vessels chest are normal and is no mediastinal, hilar or axillary adenopathy. Limited scanning through the upper abdomen shows no gross abnormality. There are no focal osseous lesions. There has been left mastectomy with left breast implant. IMPRESSION: 1. Stable 14 mm nodule in the right lower lobe posteriorly. 2. No new or suspicious nodule. 3. No acute cardiopulmonary disease [facility], , 05/21/2024 11:08 AM
== END | disposition home or self-care (01) ==
LOC: RADCTMAIN 10:08
PROVIDERS: ATTEND Internal Medicine Hematology & Oncology
DX: J98.4 Other disorders of lung (principal); J01.90 Acute sinusitis, unspecified; R91.1 Solitary pulmonary nodule
CPT/HCPCS: 71250